=== PATIENT | female | born 1955 | race Caucasian/White ===

== ENCOUNTER 2020-03-10 13:08 | Outpatient (REF) | payer MEDICARE, SELFPAY | END 2020-03-10 13:09 | disposition home or self-care (01) | LOC: HO.BBR 13:08 | PROVIDERS: PCP Internal Medicine; Visit Provider Internal Medicine Gastroenterology | DX: E83.110 Hereditary hemochromatosis (principal) | CPT/HCPCS: 99195 ==

== ENCOUNTER → 2020-03-16 10:45 | Outpatient (BNVA) | payer MEDICARE, SELFPAY | PROVIDERS: PCP Internal Medicine; Referring Provider Internal Medicine; Visit Provider Internal Medicine Gastroenterology | DX: E83.110 Hereditary hemochromatosis (principal); R16.1 Splenomegaly, not elsewhere classified | CPT/HCPCS: 99213 ==

== ENCOUNTER → 2020-03-25 12:08 | Outpatient (BNVA) | payer MEDICARE, SELFPAY | PROVIDERS: Visit Provider Orthopaedic Surgery | DX: M75.41 Impingement syndrome of right shoulder (principal); Z87.891 Personal history of nicotine dependence; Z88.9 Allergy status to unspecified drugs, medicaments and biological substances | CPT/HCPCS: 20610; 99212; J1040 ==

== ENCOUNTER 2020-04-19 13:12 | Outpatient (REF) | payer MEDICARE, SELFPAY ==
[2020-04-19 14:27] LABS: Anion Gap 12 (12-20); Blood Urea Nitrogen 17 mg/dL (9-16); Calcium 9.4 mg/dL (8.4-10.2); Carbon Dioxide 28 mmol/L (22-29); Chloride 104 mmol/L (96-108); Estimated Glomerular Filt Rate > 60; Glucose Random 121 mg/dL (60-115); Potassium 4.8 mmol/l (3.3-5.1); Sodium 139 mmol/L (135-145)
== END 2020-04-19 13:13 | disposition home or self-care (01) ==
LOC: HO.BBR 13:12
PROVIDERS: PCP Internal Medicine; Visit Provider Internal Medicine Gastroenterology
DX: F33.9 Major depressive disorder, recurrent, unspecified (principal); M19.90 Unspecified osteoarthritis, unspecified site; Z86.79 Personal history of other diseases of the circulatory system; E83.110 Hereditary hemochromatosis
CPT/HCPCS: 80048

== ENCOUNTER 2020-05-17 13:02 | Outpatient (REF) | payer MEDICARE, SELFPAY | END 2020-05-17 13:03 | disposition home or self-care (01) | LOC: HO.BBR 13:02 | PROVIDERS: Visit Provider Internal Medicine Gastroenterology | DX: Z13.89 Encounter for screening for other disorder (principal) ==

== ENCOUNTER 2020-07-01 11:29 | Outpatient (REF) | payer MEDICARE, SELFPAY ==
[2020-07-01 13:34] LABS: MANUAL DIFF FLAG NO
[2020-07-01 13:50] LABS: Basophils Percent Auto 0.8 % (0-2); Eosinophils Absolute Auto 0.1 X10*3/uL (0.0-0.4); Eosinophils Percent Auto 2.4 % (0-4); Hematocrit 44.5 % (37-47); Hemoglobin 14.4 g/dl (12.0-16.0); Imm Gran Abs Auto 0.01 X10*3/uL (0.00-0.03); Imm Gran Pct Auto 0.3 % (0.0-0.4); Lymphocytes Absolute Auto 1.3 X10*3/uL (1.2-4.9); Lymphocytes Percent Auto 34.4 % (20-40); Mean Corpuscular HGB Conc 32.4 g/dl (31.0-35.0); Mean Corpuscular Hemoglobin 31.4 pg (27.0-33.0); Mean Corpuscular Volume 97.2 fL (80-98); Mean Platelet Volume 11.3 fL (9.4-12.3); Monocytes Absolute Auto 0.4 X10*3/uL (0.1-1.2); Monocytes Percent Auto 9.4 % (2-11); Neutrophils Percent Auto 52.7 % (45-73); Platelet Count 161 X10*3/uL (160-400); Red Blood Count 4.58 X10*6/uL (4.20-5.50); White Blood Count 3.8 X10*3/uL (4.8-10.8)
[2020-07-01 13:51] LABS: INTERNATIONAL NORM RATIO 1.1 (0.9-1.1); Prothrombin Time 13.5 SEC (10.8-13.0)
[2020-07-01 14:06] LABS: Estimated Average Glucose 114 mg/dL; Hemoglobin A1c % 5.6 %
[2020-07-01 14:25] LABS: TSH reflex Free T4 1.78 uIU/mL (0.32-4.0)
[2020-07-01 14:30] LABS: Alanine Aminotransferase 43 U/L (0-31); Albumin Level 4.5 g/dL (3.5-5.0); Alkaline Phosphatase 71 U/L (39-117); Anion Gap 16 (12-20); Aspartate Amino Transferase 54 U/L (5-31); Bilirubin Total 0.5 mg/dL (0.0-1.0); Blood Urea Nitrogen 12 mg/dL (9-16); Calcium 9.4 mg/dL (8.4-10.2); Carbon Dioxide 26 mmol/L (22-29); Chloride 105 mmol/L (96-108); Cholesterol 207 mg/dL; Estimated Glomerular Filt Rate > 60; Gamma Glutamyl Transpeptidase 217 U/L (7-33); Glucose Random 127 mg/dL (60-115); HDL Cholesterol 49 mg/dL; LDL Cholesterol Calculated 137 mg/dl; Potassium 4.6 mmol/L (3.3-5.1); Sodium 142 mmol/L (135-145); Total Protein 7.5 g/dL (6.5-8.0); Triglycerides 108 mg/dL
== END 2020-07-01 11:30 | disposition home or self-care (01) ==
LOC: HO.LAB 11:29
PROVIDERS: PCP Internal Medicine; Visit Provider Internal Medicine Gastroenterology
DX: R93.5 Abnormal findings on diagnostic imaging of other abdominal regions, including retroperitoneum (principal); E83.110 Hereditary hemochromatosis
CPT/HCPCS: 36415; 80053; 80061; 82977; 83036; 84443; 85025; 85610

== ENCOUNTER 2020-07-04 13:50 | Outpatient (REF) | payer MEDICARE, SELFPAY ==
--- NOTE | ~2020-07-04 | CT_ITS ---
EXAMINATION: CT ABDOMEN AND PELVIS WITHOUT AND WITH CONTRAST CLINICAL INFORMATION: Abdominal pain COMPARISON: Previous abdominal ultrasound most recent October 2019 TECHNIQUE: Multidetector volumetric imaging was performed of the abdomen and pelvis before and after the IV administration of 85 mL of Omnipaque 300 intravenous contrast. Sagittal and coronal reformatted images were obtained on the technologist's workstation. This CT examination was performed using dose optimization techniques as appropriate, variously including the following: *Automated exposure control *Adjustment of mA and/or kV according to patient size (this includes techniques or standardized protocols for targeted exams where dose is matched to indication/reason for exam; i.e. extremities or head) *Use of iterative reconstruction technique DLP: 1282 mGy-cm FINDINGS: LUNG BASES: There is a 2 mm right lower lobe nodule axial image 9 series 7. LIVER, GALLBLADDER, AND BILIARY TREE: The liver is enlarged, right lobe measuring 21 cm in length. The left lobe and caudate lobe appears prominent as well. The contour of the liver is slightly nodular suggestive of mild cirrhosis. No focal liver lesion is seen. The gallbladder has been removed. There is no biliary duct dilatation. PANCREAS: Unremarkable SPLEEN: Unremarkable ADRENAL GLANDS: Unremarkable KIDNEYS AND URETERS: The kidneys are normal in size, shape, and attenuation. No hydronephrosis, hydroureter, or calculi seen. No perinephric stranding. BLADDER: Not optimally distended. GASTROINTESTINAL TRACT: The small and large bowel are unremarkable. The appendix is not identified. ABDOMINAL WALL: There are umbilical and ventral hernias containing fat. LYMPH NODES: Normal VASCULAR: Unremarkable PELVIC VISCERA: The uterus appears to have been removed. No pelvic mass is seen. OSSEOUS STRUCTURES: There are degenerative changes of the spine and hip joints. CT/CT abdomen pelvis wo/w con IMPRESSION: Slightly nodular contour of the liver suggestive of mild cirrhosis. No focal liver lesion is seen. Post cholecystectomy. No biliary duct dilatation. Small umbilical and ventral hernias containing fat.
[2020-07-04] MEDS: iohexoL 350 MG/ML 100 ML INFUS..BTL 85 ML IV (14:44)
== END 2020-07-04 13:51 | disposition home or self-care (01) ==
LOC: HO.CT 13:50
PROVIDERS: PCP Internal Medicine; Visit Provider Internal Medicine Gastroenterology
DX: R93.5 Abnormal findings on diagnostic imaging of other abdominal regions, including retroperitoneum (principal); E83.110 Hereditary hemochromatosis
CPT/HCPCS: 74178; Q9967

== ENCOUNTER → 2020-07-14 15:21 | Outpatient (BNVA) | payer MEDICARE, SELFPAY | PROVIDERS: PCP Internal Medicine; Visit Provider Internal Medicine Gastroenterology | CPT/HCPCS: Q3014 ==

== ENCOUNTER 2020-07-22 12:02 | Outpatient (REF) | payer MEDICARE, SELFPAY | END 2020-07-22 12:03 | disposition home or self-care (01) | LOC: HO.BBR 12:02 | PROVIDERS: Visit Provider Internal Medicine Gastroenterology | DX: Z13.89 Encounter for screening for other disorder (principal) ==

== ENCOUNTER 2020-09-08 14:04 | Outpatient (REF) | payer MEDICARE, SELFPAY | END 2020-09-08 14:05 | disposition home or self-care (01) | LOC: HO.BBR 14:04 | PROVIDERS: Visit Provider Internal Medicine Gastroenterology | DX: Z13.89 Encounter for screening for other disorder (principal) ==

== ENCOUNTER 2020-10-13 12:58 | Outpatient (REF) | payer MEDICARE, SELFPAY | END 2020-10-13 12:59 | disposition home or self-care (01) | LOC: HO.BBR 12:58 | PROVIDERS: Visit Provider Internal Medicine Gastroenterology | DX: Z13.89 Encounter for screening for other disorder (principal) ==

== ENCOUNTER 2020-11-02 14:44 | Outpatient (REF) | payer MEDICARE, SELFPAY ==
--- NOTE | ~2020-11-02 | XR_ITS ---
EXAMINATION: XR KNEE, RIGHT CLINICAL INFORMATION: Right knee pain COMPARISON: None TECHNIQUE: Four views of the right knee. FINDINGS: There is loss of tricompartment joint space most prominent in the medial compartment. There is periapical spurring in the medial and patellar 4 compartment. There is chondrocalcinosis. There is no abnormal joint effusion. No soft tissue swelling seen. XR/XR knee RT 4V IMPRESSION: Degenerative changes of the tricompartment with chondrocalcinosis. No loose bodies or joint effusion seen.
== END 2020-11-02 14:45 | disposition home or self-care (01) ==
LOC: HO.HMGCX 14:44
PROVIDERS: PCP Internal Medicine; Visit Provider Nurse Practitioner Family
DX: M25.561 Pain in right knee (principal)
CPT/HCPCS: 73564

== ENCOUNTER → 2020-11-15 13:22 | Outpatient (BNVA) | payer MEDICARE, SELFPAY | PROVIDERS: PCP Internal Medicine; Visit Provider Orthopaedic Surgery | DX: M17.11 Unilateral primary osteoarthritis, right knee (principal) | CPT/HCPCS: 20610; 99212; J1040 ==

== ENCOUNTER 2020-11-22 14:10 | Outpatient (REF) | payer MEDICARE, SELFPAY | END 2020-11-22 14:11 | disposition home or self-care (01) | LOC: HO.BBR 14:10 | PROVIDERS: Visit Provider Internal Medicine Gastroenterology | DX: Z13.89 Encounter for screening for other disorder (principal) ==

== ENCOUNTER 2020-12-20 14:40 | Outpatient (REF) | payer MEDICARE, SELFPAY ==
[2020-12-20 16:41] LABS: MANUAL DIFF FLAG NO
[2020-12-20 16:47] LABS: Basophils Percent Auto 0.6 % (0-2); Eosinophils Absolute Auto 0.1 X10*3/uL (0.0-0.4); Eosinophils Percent Auto 1.6 % (0-4); Hematocrit 43.2 % (37-47); Hemoglobin 14.5 g/dl (12.0-16.0); Lymphocytes Absolute Auto 1.6 X10*3/uL (1.2-4.9); Mean Corpuscular HGB Conc 33.6 g/dl (31.0-35.0); Mean Corpuscular Hemoglobin 33.4 pg (27.0-33.0); Mean Corpuscular Volume 99.5 fL (80-98); Mean Platelet Volume 10.6 fL (9.4-12.3); Monocytes Absolute Auto 0.5 X10*3/uL (0.1-1.2); Monocytes Percent Auto 9.1 % (2-11); Neutrophils Absolute Auto 2.9 X10*3/uL (2.0-8.3); Neutrophils Percent Auto 56.7 % (45-73); Platelet Count 177 X10*3/uL (160-400); Red Blood Count 4.34 X10*6/uL (4.20-5.50)
[2020-12-20 17:01] LABS: Alanine Aminotransferase 40 U/L (0-31); Albumin Level 4.6 g/dL (3.5-5.0); Alkaline Phosphatase 72 U/L (39-117); Anion Gap 12 (12-20); Aspartate Amino Transferase 40 U/L (5-31); Bilirubin Direct 0.3 mg/dL (0.0-0.5); Bilirubin Total 0.6 mg/dL (0.0-1.0); Blood Urea Nitrogen 12 mg/dL (9-16); Calcium 10.1 mg/dL (8.4-10.2); Carbon Dioxide 27 mmol/L (22-29); Chloride 105 mmol/L (96-108); Estimated Glomerular Filt Rate > 60; Glucose Random 126 mg/dL (60-115); Potassium 4.4 mmol/L (3.3-5.1); Sodium 140 mmol/L (135-145); Total Protein 7.6 g/dL (6.5-8.0)
== END 2020-12-20 14:41 | disposition home or self-care (01) ==
LOC: HO.HMGCLDS 14:40
PROVIDERS: PCP Internal Medicine; Visit Provider Internal Medicine
DX: F33.9 Major depressive disorder, recurrent, unspecified (principal); I47.1 Supraventricular tachycardia; M19.90 Unspecified osteoarthritis, unspecified site; E83.110 Hereditary hemochromatosis; M17.11 Unilateral primary osteoarthritis, right knee
CPT/HCPCS: 36415; 80053; 80076; 82248; 85025

== ENCOUNTER 2020-12-28 14:00 | Outpatient (REF) | payer MEDICARE, SELFPAY | END 2020-12-28 14:01 | disposition home or self-care (01) | LOC: HO.BBR 14:00 | PROVIDERS: PCP Internal Medicine; Visit Provider Internal Medicine Gastroenterology | DX: Z13.89 Encounter for screening for other disorder (principal) ==

== ENCOUNTER → 2021-01-09 15:01 | Outpatient (BNVA) | payer MEDICARE, SELFPAY | PROVIDERS: PCP Internal Medicine; Visit Provider Nurse Practitioner | CPT/HCPCS: Q3014 ==

== ENCOUNTER 2021-02-14 14:31 | Outpatient (REF) | payer MEDICARE, SELFPAY | END 2021-02-14 14:32 | disposition home or self-care (01) | LOC: HO.BBR 14:31 | PROVIDERS: Visit Provider Internal Medicine Gastroenterology | DX: Z13.89 Encounter for screening for other disorder (principal) ==

== ENCOUNTER 2021-02-22 13:59 | Outpatient (REF) | payer MEDICARE, SELFPAY ==
--- NOTE | ~2021-02-22 | MM_ITS ---
EXAMINATION: BONE DENSITOMETRY CLINICAL INDICATION: Encounter further screening for malignant neoplasm. Screening for osteoporosis. COMPARISON: None (current study represents initial baseline exam). TECHNIQUE: Using a [employer] DXA System (software version: 13.1) manufactured by [employer], dual-energy x-ray absorptiometry was performed of the lumbar spine and left hip. The images are of good technical quality. Summary results are attached. FINDINGS: AP SPINE L1-L4: BMD 1.323 g/cm2, Z-score 1.5, T-score 1.2, normal. LEFT FEMUR, NECK: BMD 1.020 g/cm2, Z-score 0.5, T-score -0.1, normal. LEFT FEMUR, TOTAL: BMD 1.055 g/cm2, Z-score 0.7, T-score 0.4, normal. IDENTIFIED RISK FACTORS: Menopause, hysterectomy. HISTORY OF FRACTURE: None listed. MEDICATIONS: Multivitamin. MM/XR DEXA axial skeleton IMPRESSION: 1. DIAGNOSIS: Normal bone density based on the lowest T-score value of -0.1 in the femoral neck applying World Health Organization criteria. 2. 10-YEAR FRACTURE RISK PREDICTION, FRAX: Major osteoporotic fracture (clinical spine, forearm, hip or shoulder) 6.3%. Hip fracture 0.2%. 3. Treatment Recommendations: NOF guidelines recommend consideration for treatment in postmenopausal women and men age 50 and older presenting with the following: -A hip or vertebral (clinical or morphometric) fracture. -T-score less than or equal to -2.5 at the femoral neck or spine after appropriate evaluation to exclude secondary causes. -Low bone mass at the hip or spine and a 10-year fracture probability by FRAX of greater than or equal to 3% for hip fracture or greater than or equal to 20% for major osteoporotic fracture based on the [place] adapted WHO algorithm. 4. Other Recommendations: All treatment decisions require clinical judgment and consideration of individual patient factors, including patient preferences, comorbidities, previous drug use, risk factors not captured in the FRAX model (e.g. frailty, falls, vitamin D deficiency, increased bone turnover, interval significant decline in bone density) and possible under or overestimation of fracture risk by FRAX. FUTURE SCAN RECOMMENDATION: People with diagnosed cases of osteoporosis or at high risk for fracture should have regular bone mineral density tests. For patients eligible for Medicare, routine testing is allowed once every 2 years. The testing frequency can be increased to one year for patients who have rapidly progressing disease, those who are receiving or discontinuing medical therapy to restore bone mass, or have additional risk factors.
--- NOTE | ~2021-02-22 | MM_ITS ---
EXAMINATION: MM SCREENING DIGITAL BREAST TOMOSYNTHESIS, BILATERAL CLINICAL INFORMATION: Screening. Asymptomatic. The lifetime risk of breast cancer based on the Tyrer-Cuzick Model is 5%. COMPARISON: Mammography: 03/08/2017; outside mammography 03/20/2012, 02/08/2010 ([facility]) TECHNIQUE: Digital breast tomosynthesis is performed in both the craniocaudal and mediolateral oblique views along with computer-aided detection (CAD). Synthesized 2D images are generated from the tomosynthesis. FINDINGS: There are scattered areas of fibroglandular density (ACR BI-RADS breast composition Category b). There are no significant masses, abnormal calcifications, or other abnormalities. Parenchymal pattern is similar to prior studies. No developing density. No significant changes. MM/MM tomosynthesis screening BI IMPRESSION: No mammographic evidence of malignancy. ASSESSMENT: BI-RADS 1: Negative RECOMMENDATION: Routine annual mammography screening. This patient's information was entered into a reminder system with a target due date for their next mammogram.
== END 2021-02-22 14:00 | disposition home or self-care (01) ==
LOC: HO.MAMMO 13:59
PROVIDERS: Visit Provider Internal Medicine
DX: Z13.820 Encounter for screening for osteoporosis (principal); Z78.0 Asymptomatic menopausal state; Z12.31 Encounter for screening mammogram for malignant neoplasm of breast
CPT/HCPCS: 77063; 77067; 77080

== ENCOUNTER 2021-04-04 13:19 | Outpatient (REF) | payer MEDICARE, SELFPAY | END 2021-04-04 13:20 | disposition home or self-care (01) | LOC: HO.BBR 13:19 | PROVIDERS: Visit Provider Internal Medicine Gastroenterology | DX: Z13.89 Encounter for screening for other disorder (principal) ==

== ENCOUNTER 2021-05-02 14:02 | Outpatient (REF) | payer MEDICARE, SELFPAY | END 2021-05-02 14:03 | disposition home or self-care (01) | LOC: HO.BBR 14:02 | PROVIDERS: Visit Provider Internal Medicine Gastroenterology | DX: Z13.89 Encounter for screening for other disorder (principal) ==

== ENCOUNTER 2021-06-08 13:56 | Outpatient (REF) | payer MEDICARE, SELFPAY | END 2021-06-08 13:57 | disposition home or self-care (01) | LOC: HO.BBR 13:56 | PROVIDERS: Visit Provider Internal Medicine Gastroenterology | DX: Z13.89 Encounter for screening for other disorder (principal) ==

== ENCOUNTER 2021-06-15 09:12 | Outpatient (REF) | payer MEDICARE, SELFPAY | END 2021-06-15 09:13 | disposition home or self-care (01) | LOC: HO.HOSX 09:12 | PROVIDERS: Visit Provider Physician Assistant | DX: Z13.89 Encounter for screening for other disorder (principal) ==

== ENCOUNTER 2021-06-29 12:13 | Outpatient (REF) | payer MEDICARE, SELFPAY | END 2021-06-29 12:14 | disposition home or self-care (01) | LOC: HO.HOSX 12:13 | PROVIDERS: Visit Provider Orthopaedic Surgery | DX: Z13.89 Encounter for screening for other disorder (principal) ==

== ENCOUNTER 2021-07-05 10:25 | Outpatient (REF) | payer MEDICARE, SELFPAY ==
[2021-07-05 14:30] LABS: Ferritin 25 ng/mL (10-250)
[2021-07-05 14:31] LABS: Alanine Aminotransferase 30 U/L (0-31); Albumin Level 4.6 g/dL (3.5-5.0); Alkaline Phosphatase 67 U/L (39-117); Anion Gap 11 (12-20); Aspartate Amino Transferase 38 U/L (5-31); Bilirubin Total 0.8 mg/dL (0.0-1.0); Carbon Dioxide 27 mmol/L (22-29); Chloride 108 mmol/L (96-108); Estimated Glomerular Filt Rate > 60; Glucose Random 124 mg/dL (60-115); Potassium 4.4 mmol/L (3.3-5.1); Sodium 142 mmol/L (135-145); Total Protein 7.7 g/dL (6.5-8.0)
[2021-07-05 15:46] LABS: Blood Urea Nitrogen 11 mg/dL (9-16); Calcium 10.2 mg/dL (8.4-10.2)
[2021-07-07 07:06] LABS: LDL Cholesterol Direct 143 mg/dL (<100)
== END 2021-07-05 10:26 | disposition home or self-care (01) ==
LOC: HO.HMGCLDS 10:25
PROVIDERS: PCP Internal Medicine; Visit Provider Internal Medicine
DX: E83.119 Hemochromatosis, unspecified (principal); F33.9 Major depressive disorder, recurrent, unspecified; M19.90 Unspecified osteoarthritis, unspecified site; R52 Pain, unspecified; E83.110 Hereditary hemochromatosis; F41.1 Generalized anxiety disorder
CPT/HCPCS: 36415; 80053; 82728; 83721

== ENCOUNTER → 2021-07-14 14:45 | Outpatient (BNVA) | payer MEDICARE, SELFPAY | PROVIDERS: PCP Internal Medicine; Referring Provider Internal Medicine; Visit Provider Nurse Practitioner | DX: E83.10 Disorder of iron metabolism, unspecified (principal) | CPT/HCPCS: 99212 ==

== ENCOUNTER 2021-07-27 13:59 | Outpatient (REF) | payer MEDICARE, SELFPAY | END 2021-07-27 14:00 | disposition home or self-care (01) | LOC: HO.BBR 13:59 | PROVIDERS: Visit Provider Nurse Practitioner | DX: Z13.89 Encounter for screening for other disorder (principal) ==

== ENCOUNTER 2021-09-12 14:00 | Outpatient (REF) | payer MEDICARE, SELFPAY | END 2021-09-12 14:01 | disposition home or self-care (01) | LOC: HO.BBR 14:00 | PROVIDERS: Visit Provider Nurse Practitioner | DX: Z13.89 Encounter for screening for other disorder (principal) ==

== ENCOUNTER → 2021-10-06 15:04 | Outpatient (BNVA) | payer MEDICARE, SELFPAY | PROVIDERS: PCP Internal Medicine; Visit Provider Physician Assistant | DX: M17.11 Unilateral primary osteoarthritis, right knee (principal) | CPT/HCPCS: 20610; 99212; J1040 ==

== ENCOUNTER 2021-10-19 12:58 | Outpatient (REF) | payer MEDICARE, SELFPAY | END 2021-10-19 12:59 | disposition home or self-care (01) | LOC: HO.BBR 12:58 | PROVIDERS: Visit Provider Nurse Practitioner | DX: Z13.89 Encounter for screening for other disorder (principal) ==

== ENCOUNTER → 2021-10-27 12:36 | Outpatient (BNVA) | payer MEDICARE, SELFPAY | PROVIDERS: PCP Internal Medicine; Referring Provider Internal Medicine; Visit Provider Internal Medicine Gastroenterology | DX: K74.69 Other cirrhosis of liver (principal); E83.119 Hemochromatosis, unspecified | CPT/HCPCS: 99212 ==

== ENCOUNTER 2021-11-23 12:04 | Outpatient (REF) | payer MEDICARE, SELFPAY | END 2021-11-23 12:05 | disposition home or self-care (01) | LOC: HO.BBR 12:04 | PROVIDERS: Visit Provider Nurse Practitioner | DX: Z13.89 Encounter for screening for other disorder (principal) ==

== ENCOUNTER → 2022-01-24 10:31 | Outpatient (BNVA) | payer MEDICARE, SELFPAY | PROVIDERS: PCP Internal Medicine; Visit Provider Physician Assistant | DX: M17.11 Unilateral primary osteoarthritis, right knee (principal) | CPT/HCPCS: 20610; 99212; J1040 ==

== ENCOUNTER 2022-01-25 11:51 | Outpatient (REF) | payer MEDICARE, SELFPAY ==
[2022-01-25 13:58] LABS: Alanine Aminotransferase 24 U/L (0-31); Albumin Level 4.3 g/dL (3.5-5.0); Alkaline Phosphatase 59 U/L (39-117); Anion Gap 15 (12-20); Aspartate Amino Transferase 29 U/L (5-31); Bilirubin Total 0.8 mg/dL (0.0-1.0); Blood Urea Nitrogen 13 mg/dL (9-16); Calcium 9.7 mg/dL (8.4-10.2); Carbon Dioxide 26 mmol/L (22-29); Chloride 105 mmol/L (96-108); Estimated Glomerular Filt Rate > 60; Glucose Random 93 mg/dL (60-115); Potassium 4.6 mmol/L (3.3-5.1); Sodium 141 mmol/L (135-145); Total Protein 7.1 g/dL (6.5-8.0)
== END 2022-01-25 11:52 | disposition home or self-care (01) ==
LOC: HO.BBR 11:51
PROVIDERS: Internal Medicine; Visit Provider Nurse Practitioner
DX: I47.1 Supraventricular tachycardia (principal); F33.9 Major depressive disorder, recurrent, unspecified; E83.110 Hereditary hemochromatosis
CPT/HCPCS: 36415; 80053

== ENCOUNTER 2022-04-16 11:54 | Outpatient (REF) | payer MEDICARE, SELFPAY | END 2022-04-16 11:55 | disposition home or self-care (01) | LOC: HO.BBR 11:54 | PROVIDERS: Visit Provider Nurse Practitioner | DX: Z13.89 Encounter for screening for other disorder (principal) ==

== ENCOUNTER 2022-05-15 12:59 | Outpatient (REF) | payer MEDICARE, SELFPAY | END 2022-05-15 13:00 | disposition home or self-care (01) | LOC: HO.BBR 12:59 | PROVIDERS: Visit Provider Nurse Practitioner | DX: Z13.89 Encounter for screening for other disorder (principal) ==

== ENCOUNTER 2022-05-15 15:00 | Outpatient (REF) | payer MEDICARE, SELFPAY ==
--- NOTE | ~2022-05-15 | MM_ITS ---
EXAMINATION: MM SCREENING DIGITAL BREAST TOMOSYNTHESIS, BILATERAL CLINICAL INFORMATION: Screening. Asymptomatic. The lifetime risk of breast cancer based on the Tyrer-Cuzick Model is 6.6%. COMPARISON: Mammography: February 22, 2021 and studies dating back to March 20, 2012 TECHNIQUE: Digital breast tomosynthesis is performed in both the craniocaudal and mediolateral oblique views along with computer-aided detection (CAD). Synthesized 2D images are generated from the tomosynthesis. FINDINGS: There are scattered areas of fibroglandular density (ACR BI-RADS breast composition Category b). There are no significant masses, abnormal calcifications, or other abnormalities. MM/MM tomosynthesis screening BI IMPRESSION: No significant changes from prior exam. ASSESSMENT: BI-RADS 1: Negative RECOMMENDATION: Routine annual mammography screening. This patient's information was entered into a reminder system with a target due date for their next mammogram.
== END 2022-05-15 15:01 | disposition home or self-care (01) ==
LOC: HO.MAMMO 15:00
PROVIDERS: Visit Provider Internal Medicine
DX: Z12.31 Encounter for screening mammogram for malignant neoplasm of breast (principal)
CPT/HCPCS: 77063; 77067

== ENCOUNTER 2022-07-12 12:26 | Outpatient (REF) | payer MEDICARE, SELFPAY | END 2022-07-12 12:27 | disposition home or self-care (01) | LOC: HO.BBR 12:26 | PROVIDERS: PCP Internal Medicine; Visit Provider Nurse Practitioner | DX: Z13.89 Encounter for screening for other disorder (principal) ==

== ENCOUNTER 2022-08-15 07:50 | Outpatient (REF) | payer MEDICARE, SELFPAY ==
--- NOTE | ~2022-08-15 | XR_ITS ---
EXAMINATION: XR KNEE, RIGHT XR KNEE AP STANDING CLINICAL INFORMATION: Pain. COMPARISON: Prior radiographs dated 11/02/2020. TECHNIQUE: Lateral and axial views of the right knee were obtained. AP bilateral standing view of the knees was obtained. FINDINGS: There is marked asymmetric narrowing of the medial joint space compartment of the right knee. The lateral joint space compartment of the right knee is well-maintained. There is moderate narrowing of the right patellofemoral compartment, most pronounced laterally. There is tricompartment peripheral osteophyte formation. There is chondrocalcinosis. There are periarticular calcifications. A small joint effusion is seen. There is no foreign body. Prosthetic components of the left total knee arthroplasty are appropriately aligned without periprosthetic fracture or lucency. No component migration. XR/XR knee RT 2V IMPRESSION: 1. There is tricompartment osteoarthritic change of the right knee, most pronounced of the medial joint space compartment, where it is severe, and of the patellofemoral compartment, where it is moderate. 2. A small right knee joint effusion is seen. 3. There is chondrocalcinosis, which can be associated with CPPD. 4. There is an intact left knee total arthroplasty.
--- NOTE | ~2022-08-15 | XR_ITS ---
EXAMINATION: XR KNEE, RIGHT XR KNEE AP STANDING CLINICAL INFORMATION: Pain. COMPARISON: Prior radiographs dated 11/02/2020. TECHNIQUE: Lateral and axial views of the right knee were obtained. AP bilateral standing view of the knees was obtained. FINDINGS: There is marked asymmetric narrowing of the medial joint space compartment of the right knee. The lateral joint space compartment of the right knee is well-maintained. There is moderate narrowing of the right patellofemoral compartment, most pronounced laterally. There is tricompartment peripheral osteophyte formation. There is chondrocalcinosis. There are periarticular calcifications. A small joint effusion is seen. There is no foreign body. Prosthetic components of the left total knee arthroplasty are appropriately aligned without periprosthetic fracture or lucency. No component migration. XR/XR knee standing BI IMPRESSION: 1. There is tricompartment osteoarthritic change of the right knee, most pronounced of the medial joint space compartment, where it is severe, and of the patellofemoral compartment, where it is moderate. 2. A small right knee joint effusion is seen. 3. There is chondrocalcinosis, which can be associated with CPPD. 4. There is an intact left knee total arthroplasty.
== END 2022-08-15 07:51 | disposition home or self-care (01) ==
LOC: HO.HOSX 07:50
PROVIDERS: Visit Provider Physician Assistant
DX: M17.11 Unilateral primary osteoarthritis, right knee (principal); M25.562 Pain in left knee
CPT/HCPCS: 73560; 73565; 99212

== ENCOUNTER → 2022-08-30 14:13 | Outpatient (BNVA) | payer MEDICARE, SELFPAY | PROVIDERS: PCP Internal Medicine; Visit Provider Orthopaedic Surgery | DX: M17.11 Unilateral primary osteoarthritis, right knee (principal) | CPT/HCPCS: 99212 ==

== ENCOUNTER → 2022-10-18 12:53 | Outpatient (BNVA) | payer MEDICARE, SELFPAY | PROVIDERS: PCP Internal Medicine; Visit Provider Physician Assistant | DX: M17.11 Unilateral primary osteoarthritis, right knee (principal) | CPT/HCPCS: 99212 ==

== ENCOUNTER 2022-10-23 06:10 | Inpatient (IN) | payer MEDICARE, SELFPAY ==
[2022-10-01 12:34] LABS: MANUAL DIFF FLAG NO
[2022-10-01 14:11] LABS: Basophils Percent Auto 0.7 % (0-2); Eosinophils Absolute Auto 0.1 X10*3/uL (0.0-0.4); Hematocrit 44.9 % (37.0-47.0); Hemoglobin 14.9 g/dl (12.0-16.0); Imm Gran Abs Auto 0.01 X10*3/uL (0.00-0.03); Imm Gran Pct Auto 0.2 % (0.0-0.4); Lymphocytes Absolute Auto 1.4 X10*3/uL (1.2-4.9); Mean Corpuscular HGB Conc 33.2 g/dl (31.0-35.0); Mean Corpuscular Hemoglobin 33.8 pg (27.0-33.0); Mean Corpuscular Volume 101.8 fL (80.0-98.0); Monocytes Absolute Auto 0.6 X10*3/uL (0.1-1.2); Monocytes Percent Auto 12.9 % (2-11); Neutrophils Absolute Auto 2.4 x10*3/uL (2.0-8.3); Neutrophils Percent Auto 53.2 % (45-73); Platelet Count 157 X10*3/uL (160-400); Red Blood Count 4.41 X10*6/uL (4.20-5.50); Red Cell Distribution Width 13.1 % (11.0-16.0); White Blood Count 4.4 X10*3/uL (4.8-10.8)
[2022-10-01 14:44] LABS: B Type Natriuretic Peptide 33 pg/mL (<100)
[2022-10-01 15:23] LABS: Alanine Aminotransferase 45 U/L (0-31); Albumin Level 4.4 g/dL (3.5-5.0); Alkaline Phosphatase 69 U/L (39-117); Anion Gap 14 (12-20); Aspartate Amino Transferase 46 U/L (5-31); Bilirubin Total 0.7 mg/dL (0.0-1.0); Blood Urea Nitrogen 13 mg/dL (9-16); Calcium 9.7 mg/dL (8.4-10.2); Carbon Dioxide 28 mmol/L (22-29); Chloride 105 mmol/L (96-108); Estimated Glomerular Filt Rate > 60; Glucose Random 76 mg/dL (60-115); Potassium 4.7 mmol/L (3.3-5.1); Sodium 142 mmol/L (135-145); Total Protein 7.1 g/dL (6.5-8.0)
[2022-10-01 15:37] LABS: Ferritin 93 ng/mL (10-250)
[2022-10-10 12:17] VITALS: BP 123/79; PULSE 72; RESP 16; O2SAT 97; BMI 32.2
--- NOTE | 2022-10-10 12:41 | HO.ANESPROP2 ---
Documented by User: Elysia Zapata NP 10/19/22 08:47 HPI - Anesthesia Eval Consult details Narrative: 66yo F for Right Knee Replacement Total, 10/23/22 PCP cleared Therapeutic phlebotomies for hemachromatosis. Last 07/2022. s/p L TKA 2017 [facility] Active Problems Active Problems: All Active Problems (Updated 10/10/22 @ 12:13 by Teressa Medrano RN) Abnormal ultrasound of abdomen (Acute) Rotator cuff impingement syndrome of right shoulder (Acute) Otitis media (Acute) PAT (paroxysmal atrial tachycardia) (Acute) Impacted cerumen, right ear (Acute) Skin growth (Acute) Knee pain (Acute) Primary osteoarthritis of right knee (Acute) Encounter for routine gynecological examination (Acute) Breast screening (Acute) Menopause (Acute) Tubular adenoma of colon (Acute) Cirrhosis due to hemochromatosis (Acute) Anxiety, generalized (Acute) Pain management (Acute) Obesity due to excess calories (Acute) Medicare annual wellness visit, subsequent (Acute) Cellulitis of left breast (Acute) Infection of breast, left (Acute) Pre-op evaluation (Acute) Impacted cerumen, bilateral (Acute) Hx of colonoscopy (Acute 10/07/18) Abnormal abdominal ultrasound (Acute) Osteoarthritis (Acute) Depression, major, recurrent (Acute) Hemochromatosis (Acute) Past Medical History Medical History 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, major, recurrent Hemochromatosis History of PAT (paroxysmal atrial tachycardia) Osteoarthritis Family History Family History Father HTN (hypertension) Lung cancer Mother Osteoporosis Sister Hemochromatosis Paternal Grandfather Skin cancer Bone cancer Maternal Grandmother Breast cancer Other Mental health disorder Family history of problems with anesthesia: No Surgical History Surgical History History of excision of lesion (08/16/14) History of partial hysterectomy (~2009) Hx of arthroplasty (10/09/16) Hx of cholecystectomy Hx of colonoscopy (10/07/18) Hx of hemorrhoidectomy Hx of toe surgery (~1995) History of Problems with Anesthesia: No Social History Social History Household Members: None Housing: Apartment Are you a primary adult daycare coordinator to a significant other at home: No Do you presently have visiting nurse or other home services: No Alcohol intake: current Alcohol intake frequency: a few times a month Alcohol type: wine Patient Tobacco Use Status: Former Tobacco user Quit Date: age 44 Tobacco use type: Cigarette Cigarette Packs Per Day: 2 Cigarettes Per Day: 40.0 Years Smoked: 29 e-Cigarette/Vaping Use: Never Used Use of substances other than those prescribed or required for medical reasons: No Currently Displaying Signs/Symptoms of Drug Intoxication Withdrawal: No Have you been hit, kicked, punched, or otherwise hurt by someone within the past year? If so, by whom?: No Do you feel safe in your current relationship?: Yes Is there a partner from a previous relationship who is making you feel unsafe now?: No Are you made to feel afraid or neglected: No Are you DNR?: No Advance Directives: No (was -he is -sister secondary) Advance Directives Information Provided: No Advance Directives on File: No Advance Directives Date on File: 10/08/16 Do you have thoughts of harming others: None Do you have a plan to hurt others: No Plan Recently lost weight without trying: No How much weight loss: Not applicable Eating poorly because of decreased appetite: No Nutrition screen score: 0 Nutrition Risks: No Nutritional Risk Patient : No : No Poor oral hygiene: No Current occupational status: disabled Current occupation: right handed Cognitive needs: No Hearing needs: No Vision needs: Yes Narrative Narrative: No recent illness No CP/SOB within limits of pain Meds Allergies Allergy/AdvReac Type Severity Reaction Status Date / Time adhesive tape [ADHESIVE TAPE] Allergy Intermediate rednes Verified 10/10/22 12:16 from band-aids Home Medications Medication Instructions Recorded Confirmed Last Taken Type celecoxib 200 mg capsule 200 mg PO DAILY 10/10/22 10/23/22 Unknown History sertraline 100 mg tablet 150 mg PO DAILY 10/10/22 10/23/22 10/23/22 05:30 History diltiazem HCl 120 mg 120 mg PO DAILY 10/23/22 10/23/22 10/23/22 05:30 History capsule,extended release 24 hr Exam Exam Date and Time: October 10, 2022 1241 Height,Weight and Vital Signs: Height 5 ft 8 in Weight 96.162 kg Last Vital Signs Pulse 72 10/10/22 12:17 Resp 16 10/10/22 12:17 BP 123/79 10/10/22 12:17 Pulse Ox 97 10/10/22 12:17 O2 Del Method Room Air 10/10/22 12:17 Pertinent Lab Results Pertinent Lab Results: Laboratory Tests 10/01/22 10/01/22 10/01/22 12:33 12:33 12:33 WBC 4.4 L RBC 4.41 Hgb 14.9 Hct 44.9 MCV 101.8 H MCH 33.8 H MCHC 33.2 RDW 13.1 Plt Count 157 L MPV 11.0 Immature Gran % (Auto) 0.2 Neut % (Auto) 53.2 Lymph % (Auto) 31.0 Lassen % (Auto) 12.9 H Eos % (Auto) 2.0 Baso % (Auto) 0.7 Lymph # (Auto) 1.4 Lassen # (Auto) 0.6 Eos # (Auto) 0.1 Baso # (Auto) 0.0 Abs Immat Gran (auto) 0.01 Absolute Neuts (auto) 2.4 Absolute Nucleated RBC 0.000 Nucleated RBC % (auto) 0.0 Sodium 142 Potassium 4.7 Chloride 105 Carbon Dioxide 28 Anion Gap 14 BUN 13 Creatinine 0.72 Estim Creat Clear Calc TNP Estimated GFR > 60 Random Glucose 76 Calcium 9.7 Ferritin 93 Total Bilirubin 0.7 AST 46 H ALT 45 H Alkaline Phosphatase 69 B-Natriuretic Peptide 33 Total Protein 7.1 Albumin 4.4 Narrative Narrative: EKG 09/2022 NSR @ 63 Airway Mallampati Class: II TM Dist: >3cm Loose/Missing/Broken Teeth: Yes (Top left molar missing) Heart: RRR Lungs: CTAB Assessment and Plan Assessment Anesthesia Assessment: Anesthesia Plan Discussed and PAT Visit Final Anesthetic Review Family History of Problems with Anesthesia: No History of Problems with Anesthesia: No Documented by User: Jake Pedraza MD 10/23/22 18:09 [facility] Past Medical History Medical History 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, major, recurrent Hemochromatosis History of PAT (paroxysmal atrial tachycardia) Osteoarthritis Family History Family History Father HTN (hypertension) Lung cancer Mother Osteoporosis Sister Hemochromatosis Paternal Grandfather Skin cancer Bone cancer Maternal Grandmother Breast cancer Other Mental health disorder Surgical History Surgical History History of excision of lesion (08/16/14) History of partial hysterectomy (~2009) Hx of arthroplasty (10/09/16) Hx of cholecystectomy Hx of colonoscopy (10/07/18) Hx of hemorrhoidectomy Hx of toe surgery (~1995) Social History Social History Household Members: None Housing: Apartment Are you a primary adult daycare coordinator to a significant other at home: No Do you presently have visiting nurse or other home services: No Alcohol intake: current Alcohol intake frequency: a few times a month Alcohol type: wine Patient Tobacco Use Status: Former Tobacco user Quit Date: age 44 Tobacco use type: Cigarette Cigarette Packs Per Day: 2 Cigarettes Per Day: 40.0 Years Smoked: 29 e-Cigarette/Vaping Use: Never Used Use of substances other than those prescribed or required for medical reasons: No Currently Displaying Signs/Symptoms of Drug Intoxication Withdrawal: No Have you been hit, kicked, punched, or otherwise hurt by someone within the past year? If so, by whom?: No Do you feel safe in your current relationship?: Yes Is there a partner from a previous relationship who is making you feel unsafe now?: No Are you made to feel afraid or neglected: No Are you DNR?: No Advance Directives: No (was -he is -sister secondary) Advance Directives Information Provided: No Advance Directives on File: No Advance Directives Date on File: 10/08/16 Do you have thoughts of harming others: None Do you have a plan to hurt others: No Plan Recently lost weight without trying: No How much weight loss: Not applicable Eating poorly because of decreased appetite: No Nutrition screen score: 0 Nutrition Risks: No Nutritional Risk Patient : No : No Poor oral hygiene: No Current occupational status: disabled Current occupation: right handed Cognitive needs: No Hearing needs: No Vision needs: Yes Meds Allergies Allergy/AdvReac Type Severity Reaction Status Date / Time adhesive tape [ADHESIVE TAPE] Allergy Intermediate rednes Verified 10/10/22 12:16 from band-aids Home Medications Medication Instructions Recorded Confirmed Last Taken Type celecoxib 200 mg capsule 200 mg PO DAILY 10/10/22 10/23/22 Unknown History sertraline 100 mg tablet 150 mg PO DAILY 10/10/22 10/23/22 10/23/22 05:30 History diltiazem HCl 120 mg 120 mg PO DAILY 10/23/22 10/23/22 10/23/22 05:30 History capsule,extended release 24 hr Exam Airway Neck ROM: Full Loose/Missing/Broken Teeth: Yes (Top left molar missing, chipped upper left ) Assessment and Plan Assessment Anesthesia Assessment: Chart Reviewed Final Anesthetic Review NPO: Yes Final Preanesthetic Review: Meds/Allgs Chart Reviewed, Consent Obtained/Reviewed and Anes Risks/Benef Reviewed Patient Risk: Intermediate Procedure Risk: Intermediate Anesthetic Plan Anesthetic Plan: Spinal and Agree w/ Assess. and Plan Disposition: Standard PACU and Inp. Admit - Standard Bed
[2022-10-10 15:17] LABS: MRSA Nasal PCR NEGATIVE (Negative); SA Nasal PCR NEGATIVE (Negative)
[2022-10-23] VITALS (14 sets, daily range): BP systolic 117–137; BP diastolic 63–85; PULSE 62–90; RESP 15–20; TEMP 35.7–36.9; O2SAT 96–100; BMI 36.0
--- NOTE | ~2022-10-23 | XR_ITS ---
EXAMINATION: XR KNEE, RIGHT CLINICAL INFORMATION: Right TKA COMPARISON: None available. TECHNIQUE: Four views of the right knee. FINDINGS: There is a total right knee prosthesis with immediate postoperative changes of surgical jayna along the anterior knee. There is gas in fluid within the anterior joint space. The prosthetic components are in satisfactory alignment. XR/XR knee RT 2V IMPRESSION: Total right knee prosthesis with immediate postoperative changes noted. The prosthetic components are in satisfactory alignment.
[2022-10-23 06:48] LABS: Hematocrit 43.9 % (37.0-47.0); Hemoglobin 15.1 g/dl (12.0-16.0)
--- NOTE | 2022-10-23 06:57 | PHA.MEDREC ---
Pharmacy Consult ? Medication Reconciliation Pharmacy has reviewed the medication reconciliation completed by nursing.
[2022-10-23] MEDS: Lactated Ringers 1,000 ML 100 ML IVCONT ×2 (07:03→12:29)
--- NOTE | 2022-10-23 07:37 | MHC.SHP ---
Pre-Procedural Eval Section A Date of Service: 10/23/22 The patient is an INPATIENT: No Changes since office visit: No Cold of Flu in the past 2 weeks, No New Medical Problems, No Changes in Medication and No Patient answered all questions The History & Physical has been completed within 30 days and I have reviewed it.: Yes Section B Chief Complaint: RT TKA Allergies: Allergies Allergy/AdvReac Type Severity Reaction Status Date / Time adhesive tape [ADHESIVE TAPE] Allergy Jacki bledsoe Verified 10/10/22 12:16 from band-aids Plan I have reviewed the history and physical and performed a pertinent physical examination on my patient. No changes have occurred unless specified. Time Spent With Patient Time: Total time managing care of this patient today ____ minutes.
--- NOTE | 2022-10-23 09:43 | P.BOP_ITS ---
Brief Operative Note Date of Service: 10/23/22 Pre-op diagnosis: Right knee OA Post-op diagnosis: same Procedure: Right TKA Surgeon: Cosmo Degroot MD Anesthesia: GETA Was an Robotic Machine Operator used for this Procedure?: No Robotic Machine Operator: Mahsa Jasmine Estimated blood loss (mL): 150 IV fluids (mL): 1,000 Pathology: other Condition: stable Disposition: PACU
--- NOTE | 2022-10-23 10:04 | W.PM.OPN ---
Operative Note Operative Note Date of Service: 10/23/22 Narrative: Date of Service: 10/23/22 Pre-op diagnosis: Right knee OA Post-op diagnosis: same Procedure: Right TKA Surgeon: Cosmo Degroot MD Anesthesia: GETA Was an Pharmacy Sales Representative used for this Procedure?: No Pharmacy Sales Representative: Mahsa Jasmine Estimated blood loss (mL): 150 IV fluids (mL): 1,000 Pathology: other Condition: stable Disposition: PACU Procedure in detail: The patient was brought to the operating room and prepped and draped in standard sterile fashion. A time-out was called to identify proper site proper procedure proper surgeon and IV antibiotics were administered. 1 g of IV tranexamic acid was administered. I began by making a midline incision to the retinaculum and performed a medial parapatellar arthrotomy. The patella was translated laterally and the knee was flexed up . I performed a small medial peel and resected the infrapatellar fat pad. There was complete eburnation of the medial tibial plateau. [place]'s line was then used to drill my intramedullary femoral guide and my distal femur cut of 10 mm was made in 5 degrees of valgus while protecting the soft tissues. I then measured a # 4 femur and placed my cutting guide and made my anterior posterior and chamfer cuts in 3deg or ER while protecting the soft tissues at all times. Once I was satisfied with my cuts I turned my attention to the tibia. I removed the meniscus medially and laterally and , using an external cutting guide, in line with the tibial crest and the third ray, I made my distal tibial cut in 3 deg slope of while protecting the PCL the posterior soft tissues at all times. An extension block was used to confirm appropriate amount of bony resection. I then sized a #4 tibia and once I was satisfied that there was complete tibial coverage I placed my trial and with the trial femur in place took the knee through range of motion. I was satisfied with the extension and flexion as well as the stability and balance at 0, 30 and 90 degrees. I then turned my attention to the patella where I removed 1 cm from the undersurface of the patella and then trialed a 29a patellar button. Again the knee was taken through range of motion I was satisfied with the tracking. I then returned to the femur and drilled my femoral lug holes and prepared the tibia. A femoral bone plug was placed and the knee was irrigated copiously. I then press fit the patella, tibia and femur in standard fashion. I trialed different inserts until I selected a #10 insert. The final insert was placed and a 3 minutes iodine soak with local TXA was performed. A Werewolf cautery wand was used to maintain hemostasis over the capsule and meniscal beds, the gutters and pericapsular soft tissues. The knee was then closed with a running Quill suture, a 3 0 Vicryl and jayna on the skin. Patient was then placed in sterile dressing and brought to recovery room in stable condition there were no known complications.
--- NOTE | 2022-10-23 10:33 | PHA.MEDREC ---
Pharmacy Consult ? Medication Reconciliation Pharmacy has completed the medication reconciliation. Pharmacy has reviewed med rec done by nursing.
--- NOTE | 2022-10-23 11:56 | P.CONHOSP_ITS ---
History of Present Illness Data of Consult Service Date: 10/23/22 Primary Care Provider: Kathleen Ray MD HPI 67-year-old woman admitted by Orthopedic surgery with history paroxysmal atrial tachycardia, depression admitted with right knee osteoarthritis. She is status post right total knee arthroplasty. Surgery was unremarkable. Patient has very minimal pain at this time. She has been able to eat and drink without nausea or vomiting. Her vital signs are stable. No acute medical complaints at this time. 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, major, recurrent Hemochromatosis History of PAT (paroxysmal atrial tachycardia) Osteoarthritis Family History Father HTN (hypertension) Lung cancer Mother Osteoporosis Sister Hemochromatosis Paternal Grandfather Skin cancer Bone cancer Maternal Grandmother Breast cancer Other Mental health disorder Surgical History History of excision of lesion (08/16/14) History of partial hysterectomy (~2009) Hx of arthroplasty (10/09/16) Hx of cholecystectomy Hx of colonoscopy (10/07/18) Hx of hemorrhoidectomy Hx of toe surgery (~1995) Social History Household Members: None Housing: Apartment Are you a primary pediatric critical care nurse to a significant other at home: No Do you presently have visiting nurse or other home services: No Alcohol intake: current Alcohol intake frequency: a few times a month Alcohol type: wine Patient Tobacco Use Status: Former Tobacco user Quit Date: age 44 Tobacco use type: Cigarette Cigarette Packs Per Day: 2 Cigarettes Per Day: 40.0 Years Smoked: 29 e-Cigarette/Vaping Use: Never Used Use of substances other than those prescribed or required for medical reasons: No Have you been hit, kicked, punched, or otherwise hurt by someone within the past year? If so, by whom?: No Do you feel safe in your current relationship?: Yes Is there a partner from a previous relationship who is making you feel unsafe now?: No Are you made to feel afraid or neglected: No Are you DNR?: No Advance Directives: No (was -he is -sister secondary) Advance Directives Information Provided: No Advance Directives on File: No Advance Directives Date on File: 10/08/16 Do you have thoughts of harming others: None Do you have a plan to hurt others: No Plan Recently lost weight without trying: No How much weight loss: Not applicable Eating poorly because of decreased appetite: No Nutrition screen score: 0 Nutrition Risks: No Nutritional Risk Patient : No : No Poor oral hygiene: No Current occupational status: disabled Current occupation: right handed Cognitive needs: No Hearing needs: No Vision needs: Yes Meds Allergies Allergy/AdvReac Type Severity Reaction Status Date / Time adhesive tape [ADHESIVE TAPE] Allergy Intermediate rednes Verified 10/10/22 12:16 from band-aids Active Medications: Current Medications Acetaminophen (Acetaminophen 325 Mg Tablet) 650 mg PO Q6H PRN PRN Reason: Pain, Mild (Pain Scale 1-3) Celecoxib (Celecoxib 200 Mg Capsule) 200 mg PO BID EVELIO Diltiazem HCl (Diltiazem Hcl Cd 120 Mg Cap.Er.Deg) 120 mg PO DAILY EVELIO; Protocol Docusate Sodium (Docusate Sodium 100 Mg Capsule) 100 mg PO BID EVELIO Gabapentin (Gabapentin 300 Mg Capsule) 300 mg PO BEDTIME EVELIO Hydromorphone HCl (Hydromorphone Hcl 0.5 Mg/0.5 Ml Syringe) 0.25 mg IVPUSH Q4H PRN; Protocol PRN Reason: Pain, Severe (Pain Scale 7-10) Lactated Ringer's (Lr) 1,000 mls @ 100 mls/hr IVCONT .Q10H EVELIO Stop: 10/24/22 10:00 Cefazolin Sodium/Dextrose (Ancef) 2 gm in 50 mls @ 100 mls/hr IV POSTOP ONE Stop: 10/23/22 14:29 Ondansetron HCl (Ondansetron Hcl 4 Mg/2 Ml Vial) 4 mg IVPUSH Q8H PRN PRN Reason: Nausea and Vomiting Oxycodone HCl (Oxycodone Hcl Immed Release 5 Mg Tablet) 5 mg PO Q4H PRN PRN Reason: Pain, Moderate(Pain Scale 4-6) Oxycodone HCl (Oxycodone Hcl Er 10 Mg Tab.Er.12h) 10 mg PO BID EVELIO Sertraline HCl (Sertraline Hcl 50 Mg Tablet) 150 mg PO DAILY [facility] Sodium Chloride (0.9 % Sodium Chloride Flush 3 Ml Syringe) 3 ml IVFLUSH QSHIFT [facility] Home Medications Medication Instructions Recorded Confirmed Last Taken Type celecoxib 200 mg capsule 200 mg PO DAILY 10/10/22 10/23/22 Unknown History sertraline 100 mg tablet 150 mg PO DAILY 10/10/22 10/23/22 10/23/22 05:30 History diltiazem HCl 120 mg 120 mg PO DAILY 10/23/22 10/23/22 10/23/22 05:30 History capsule,extended release 24 hr Physical Exam Vital Signs and Narrative: Vital Signs: Last Vital Signs Temp 98.3 F 10/23/22 11:47 Pulse 81 10/23/22 11:47 Resp 16 10/23/22 11:47 BP 137/76 10/23/22 11:47 Pulse Ox 98 10/23/22 11:47 O2 Del Method Room Air 10/23/22 11:47 BMI result Body Mass Index 32.2 Appearing in no acute distress head is normocephalic atraumatic eyes pupils are PERRLA sclera is anicteric mouth throat mucous membranes are intact and moist neck is supple no lymphadenopathy, no JVD noted lung sounds are clear to auscultation heart regular rate rhythm, clear S1, S2 positive bowel sounds, abdomen is soft, nontender neuro patient is alert x3, no focal deficits Results Labs 10/23/22 06:42 10/01/22 12:33 Assessment and Plan (1) Rotator cuff impingement syndrome of right shoulder: Status: Acute Plan 67 year old women s/p right TKA Right TKA management as per surgical team pain management Hx of paroxysmal atach continue diltiazem Mental health continue home medications DVT prophylax with SCD boots Consult complete, will sign off Time Spent With Patient Time: Total time managing care of this patient today ____ minutes.
[2022-10-23] MEDS: dilTIAZem HCL CD 120 MG CAP.ER.DEG PO (12:29)
[2022-10-23] MEDS: Sertraline HCL 50 MG TABLET 150 MG PO (12:29)
[2022-10-23] MEDS: Acetaminophen 325 MG TABLET 650 MG PO (12:37)
[2022-10-23] MEDS: oxyCODONE HCl Immed Release 5 MG TABLET PO ×2 (12:38→16:28)
[2022-10-23] MEDS: ceFAZolin Sodium/Dextrose,Iso 2 GM/50 ML PIGGYBACK IV (13:36)
[2022-10-23] MEDS: HYDROmorphone HCl 0.5 MG/0.5 ML SYRINGE 0.25 MG IVPUSH ×3 (13:45→22:30)
[2022-10-23] MEDS: oxyCODONE HCl Immed Release 5 MG TABLET 10 MG PO (19:40)
[2022-10-23] MEDS: Acetaminophen 1,000 MG/100 ML PIGGYBACK 400 MG IV (19:42)
[2022-10-23] MEDS: Celecoxib 200 MG CAPSULE PO (20:31)
[2022-10-23] MEDS: oxyCODONE HCl ER 10 MG TAB.ER.12H PO (20:32)
[2022-10-23] MEDS: Gabapentin 300 MG CAPSULE PO (20:32)
[2022-10-23] MEDS: Docusate Sodium 100 MG CAPSULE PO (20:32)
[2022-10-24] VITALS (7 sets, daily range): BP systolic 116–133; BP diastolic 59–76; PULSE 68–83; RESP 16–18; TEMP 36.1–36.6; O2SAT 93–95
[2022-10-24] MEDS: Lactated Ringers 1,000 ML 100 ML IVCONT ×2 (00:16→07:44)
[2022-10-24] MEDS: Acetaminophen 1,000 MG/100 ML PIGGYBACK 400 MG IV ×3 (01:00→15:54)
[2022-10-24] MEDS: oxyCODONE HCl Immed Release 5 MG TABLET 10 MG PO (03:42)
[2022-10-24 05:59] LABS: MANUAL DIFF FLAG NO
[2022-10-24 06:12] LABS: Basophils Percent Auto 0.3 % (0-2); Eosinophils Percent Auto 0.6 % (0-4); Hematocrit 32.7 % (37.0-47.0); Imm Gran Abs Auto 0.03 X10*3/uL (0.00-0.03); Imm Gran Pct Auto 0.4 % (0.0-0.4); Lymphocytes Absolute Auto 0.8 X10*3/uL (1.2-4.9); Lymphocytes Percent Auto 12.3 % (20-40); Mean Corpuscular HGB Conc 33.6 g/dl (31.0-35.0); Mean Corpuscular Volume 100.9 fL (80.0-98.0); Mean Platelet Volume 10.9 fL (9.4-12.3); Monocytes Absolute Auto 0.7 X10*3/uL (0.1-1.2); Neutrophils Absolute Auto 5.1 x10*3/uL (2.0-8.3); Neutrophils Percent Auto 76.4 % (45-73); Platelet Count 109 X10*3/uL (160-400); Red Blood Count 3.24 X10*6/uL (4.20-5.50); Red Cell Distribution Width 12.8 % (11.0-16.0); White Blood Count 6.7 X10*3/uL (4.8-10.8)
[2022-10-24 06:35] LABS: Anion Gap 10 (12-20); Blood Urea Nitrogen 8 mg/dL (9-16); Calcium 8.6 mg/dL (8.4-10.2); Carbon Dioxide 27 mmol/L (22-29); Chloride 103 mmol/L (96-108); Creatinine Clr Calc Pharmacy 114.2; Estimated Glomerular Filt Rate > 60; Glucose Fasting 135 mg/dL (60-99); Potassium 3.9 mmol/L (3.3-5.1); Sodium 136 mmol/L (135-145)
--- NOTE | 2022-10-24 07:45 | P.PNOP_ITS ---
Subjective Subjective Date of Service: 10/24/22 Interval history: POD s/p RT TKA no overnight events ambulating with PT pain is better controlled with med adjustments denies sob, cp, palpitations Physical Exam Vital Signs: Vital Signs: Last Vital Signs Temp 97.6 F 10/24/22 07:44 Pulse 81 10/24/22 07:44 Resp 18 10/24/22 07:44 BP 133/66 10/24/22 07:44 Pulse Ox 94 10/24/22 07:44 O2 Del Method Room Air 10/24/22 07:44 BMI result Body Mass Index 36.0 Const: General: cooperative, healthy appearing and no acute distress Resp: Effort & Inspection: normal respiratory effort and able to speak in complete sentences Cardio: Rate: regular rate Peripheral pulses: Peripheral pulses 2+ throughout GI: Palpation (GI): Soft to palpation Skin: General skin exam: no rashes or lesions noted Extrem: Other: bandage clean dry and intact. Anastasia intact. No erythema or joint effusion. Calf supple nontender. Neurovascularly intact. Procedures Date of Service Date of Service: 10/24/22 Progress Note: A&P Assessment and plan (1) Status post total right knee replacement: Status: Acute Plan * Continue pain mgmnt * Begin Aspirin for dvt ppx * begin PT for RT TKA * Dispo planning-Pending PT eval, pain mgmnt Time Spent With Patient Time: Total time managing care of this patient today ____ minutes. Quality Stroke Does the patient have a stroke diagnosis?: No VTE Prior VTE?: No VTE Risk Level:: Surgical - very high VTE Device Contraindication: N/A - Device Ordered VTE Drug Contraindication: N/A - Med Ordered
[2022-10-24] MEDS: dilTIAZem HCL CD 120 MG CAP.ER.DEG PO (08:36)
[2022-10-24] MEDS: oxyCODONE HCl ER 10 MG TAB.ER.12H PO ×2 (08:36→20:36)
[2022-10-24] MEDS: Celecoxib 200 MG CAPSULE PO ×2 (08:37→20:35)
[2022-10-24] MEDS: Aspirin 325 MG TABLET PO ×2 (08:37→20:35)
[2022-10-24] MEDS: Docusate Sodium 100 MG CAPSULE PO ×2 (08:37→20:35)
[2022-10-24] MEDS: Sertraline HCL 50 MG TABLET 150 MG PO (08:37)
[2022-10-24] MEDS: HYDROmorphone HCl 0.5 MG/0.5 ML SYRINGE 0.25 MG IVPUSH ×2 (15:55→22:56)
[2022-10-24] MEDS: 0.9 % Sodium Chloride Flush 3 ML SYRINGE IVFLUSH (19:32)
[2022-10-24] MEDS: Gabapentin 300 MG CAPSULE PO (20:35)
[2022-10-25 03:41] VITALS: BP 145/66; PULSE 83; RESP 17; TEMP 36.5
--- NOTE | 2022-10-25 05:56 | P.DS_ITS ---
DS: Providers Provider Date of Service: 10/25/22 Date of admission: 10/23/22 06:10 Primary care physician: Kathleen Ray MD Consults: 10/23/22 11:43 Consult to Hospitalist Routine Comment: Consulting Provider: Hospitalist Reason For Exam: medical management DS: Diagnosis Discharge Diagnosis (1) Status post total right knee replacement: Status: Acute DS: Summary Hospital Course Hospital Course: The patient underwent a successful Right total knee arthroplasty on 10/23/22, was transferred to PACU and then to the floor to recover. During their stay, their vitals were stable, afebrile at 98.7 . Labs were unremarkable, H/H 12.0/35.2 . POD 1 he was started on Aspirin 325mg tabs po bid for DVT ppx, they also received Physical Therapy services twice a day. Physical therapy should include gait training, ROM to tolerance and quad strength. She is WBAT. Prior to discharge, her dressing was changed, incision clean dry and intact, new Aquacel dressing applied. The Aquacel dressing should remain intact and dry at all times. Any concerns with the dressing, please contact orthopedic office. No showering. The plan is to be discharged home with VNA Time Spent with Patient Time attestation: Total time managing care of this patient today ____ minutes. Discharge coordination time: Less than 30 minutes Quality: Safe Use of Opioids Does Pt have an Active Cancer Diagnosis on the Problem List?: No Quality: Stroke Does the patient have a stroke diagnosis?: No Physical Exam Vital Signs: Vital Signs: Last Vital Signs Temp 97.7 F 10/25/22 03:41 Pulse 83 10/25/22 03:41 Resp 17 10/25/22 03:41 BP 145/66 H 10/25/22 03:41 Pulse Ox 95 10/24/22 19:46 O2 Del Method Room Air 10/25/22 03:41 BMI result Body Mass Index 36.0 Const: General: cooperative, healthy appearing and no acute distress Resp: Effort & Inspection: normal respiratory effort and able to speak in complete sentences Cardio: Rate: regular rate Peripheral pulses: Peripheral pulses 2+ throughout GI: Palpation (GI): Soft to palpation Skin: General skin exam: no rashes or lesions noted Extrem: Other: Incision clean dry and intact. [place] intact. No erythema or joint effusion. Calf supple nontender. Neurovascularly intact. DS: Data Data Completed and Pending Pending studies at discharge: Pending at discharge 10/23/22 09:27 Surgical [PTH] Routine Labs on day of discharge: Laboratory Results - last 24 hr 10/24/22 10/24/22 05:31 05:31 WBC 6.7 RBC 3.24 L D Hgb 11.0 L D Hct 32.7 L D MCV 100.9 H MCH 34.0 H MCHC 33.6 RDW 12.8 Plt Count 109 L D MPV 10.9 Immature Gran % (Auto) 0.4 Neut % (Auto) 76.4 H Lymph % (Auto) 12.3 L [place]ney % (Auto) 10.0 Eos % (Auto) 0.6 Baso % (Auto) 0.3 Lymph # (Auto) 0.8 L [place] # (Auto) 0.7 Eos # (Auto) 0.0 Baso # (Auto) 0.0 Abs Immat Gran (auto) 0.03 Absolute Neuts (auto) 5.1 Absolute Nucleated RBC 0.000 Nucleated RBC % (auto) 0.0 Sodium 136 Potassium 3.9 Chloride 103 Carbon Dioxide 27 Anion Gap 10 L BUN 8 L Creatinine 0.63 Estim Creat Clear Calc 114.2 Estimated GFR > 60 Fasting Glucose 135 H Calcium 8.6 D Discharge Plan Discharge Anticipated Discharge Date/Time: 10/25/22 08:56 Patient Disposition: Home Health Service Discharge Diagnosis: RT TKA Referrals: Mahsa Jasmine PA-C [Physician Professor Of Religion] - 2 Weeks (11/08/22 1:00 [facility] Mahsa Jasmine PA-C) Discharge Medications: New docusate sodium 100 mg Capsule 100 mg PO BID 14 Days Qty: 28 0RF oxycodone 10 mg tablet 10 mg PO Q6H PRN (Reason: Pain, Moderate(Pain Scale 4-6)) 7 Days Qty: 28 0RF Rx Instructions: Partial Fill upon patient request. celecoxib 200 mg Capsule 200 mg PO BID 30 Days Qty: 60 0RF aspirin 325 mg Tablet 325 mg PO BID 42 Days Qty: 84 0RF acetaminophen 325 mg Tablet 650 mg PO Q6H PRN (Reason: Pain, Mild (Pain Scale 1-3)) 30 Days Qty: 240 0RF Continued gabapentin 300 mg capsule 300 mg PO BEDTIME Qty: 90 0RF sertraline 100 mg tablet 150 mg PO DAILY diltiazem HCl 120 mg capsule,extended release 24hr 120 mg PO DAILY Discontinued celecoxib 200 mg capsule 200 mg PO DAILY Discharge Orders: Discharge Order (Routine); Ordered 10/25/22 Ordered By: Mahsa Jasmine Diet: Regular diet Activity on Discharge: Use cane or walker Stand Alone Forms: Patient Portal Discharge page Activity Restrictions/Additional Instructions: Physical Therapy for Total knee arthroplasty: WBAT, gait training, ROM 0-12, quad strength * Limit stair climbing * No showering, no tub bath-keep dressing clean, dry and intact * No driving x6 weeks * Continue Aspirin twice a day x 6 weeks * Follow up with [facility] in 2 weeks: * 11/08/22 1:00 [facility] [place] [facility] Jasmine PA-C * --you will also have your first out patient PT eval on the day of your post op appt-so please plan on being in the office that day for an extended period of time. Care Plan Goals: Restore function of joint Health Concerns: none Plan of Treatment: Physical Therapy Pain management DVT prophylaxis Assessment: as above
[2022-10-25 05:58] LABS: MANUAL DIFF FLAG NO
[2022-10-25 06:02] LABS: Basophils Absolute Auto 0.1 X10*3/uL (0.0-0.2); Basophils Percent Auto 0.5 % (0-2); Eosinophils Absolute Auto 0.3 X10*3/uL (0.0-0.4); Eosinophils Percent Auto 3.3 % (0-4); Hematocrit 35.2 % (37.0-47.0); Imm Gran Abs Auto 0.06 X10*3/uL (0.00-0.03); Imm Gran Pct Auto 0.7 % (0.0-0.4); Lymphocytes Absolute Auto 1.2 X10*3/uL (1.2-4.9); Lymphocytes Percent Auto 13.6 % (20-40); Mean Corpuscular HGB Conc 34.1 g/dl (31.0-35.0); Mean Corpuscular Hemoglobin 34.9 pg (27.0-33.0); Mean Corpuscular Volume 102.3 fL (80.0-98.0); Mean Platelet Volume 11.5 fL (9.4-12.3); Monocytes Absolute Auto 0.8 X10*3/uL (0.1-1.2); Monocytes Percent Auto 8.3 % (2-11); Neutrophils Absolute Auto 6.7 x10*3/uL (2.0-8.3); Neutrophils Percent Auto 73.6 % (45-73); Platelet Count 145 X10*3/uL (160-400); Red Blood Count 3.44 X10*6/uL (4.20-5.50); Red Cell Distribution Width 12.8 % (11.0-16.0); White Blood Count 9.2 X10*3/uL (4.8-10.8)
[2022-10-25 06:52] LABS: Anion Gap 12 (12-20); Blood Urea Nitrogen 8 mg/dL (9-16); Calcium 9.4 mg/dL (8.4-10.2); Carbon Dioxide 28 mmol/L (22-29); Chloride 104 mmol/L (96-108); Creatinine Clr Calc Pharmacy 114.2; Estimated Glomerular Filt Rate > 60; Glucose Fasting 134 mg/dL (60-99); Potassium 4.1 mmol/L (3.3-5.1); Sodium 140 mmol/L (135-145)
[2022-10-25 08:10] VITALS: BP 138/70; PULSE 83; RESP 18; TEMP 37.1; O2SAT 96
[2022-10-25] MEDS: Celecoxib 200 MG CAPSULE PO (08:12)
[2022-10-25] MEDS: oxyCODONE HCl ER 10 MG TAB.ER.12H PO (08:12)
[2022-10-25] MEDS: Docusate Sodium 100 MG CAPSULE PO (08:12)
[2022-10-25] MEDS: Sertraline HCL 50 MG TABLET 150 MG PO (08:12)
[2022-10-25] MEDS: Aspirin 325 MG TABLET PO (08:12)
[2022-10-25] MEDS: 0.9 % Sodium Chloride Flush 3 ML SYRINGE IVFLUSH (08:12)
[2022-10-25] MEDS: dilTIAZem HCL CD 120 MG CAP.ER.DEG PO (08:12)
[2022-10-25 08:59] VITALS: BP 138/70; PULSE 83; O2SAT 96
--- NOTE | 2022-10-25 10:28 | MHC.CM.PN ---
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
--- NOTE | 2022-10-25 11:00 | HO.POSTANES ---
Post Anesthesia Evaluation Post Anesthesia Evaluation Date of Service: 10/25/22 Vital Signs: Vital Signs Temp Pulse Resp BP Pulse Ox O2 Del Method 10/25/22 08:59 83 138/70 96 10/25/22 08:10 98.7 F 83 18 138/70 96 Room Air 10/25/22 03:41 97.7 F 83 17 145/66 H Room Air Anesthesia: Spinal and Nerve Block Mental Status: Awake Pain Control: Satisfactory Nausea/Vomiting: None Hydration: Adequate Anesthesia-Related Issues: No Anes. Related Issues
== END 2022-10-25 10:30 | disposition home health service (06) | DRG 470 ==
LOC: HO.SSSA 06:14 → HO.S3 10:08
PROVIDERS: Nurse Practitioner; Physician Assistant; Admitting Provider Orthopaedic Surgery; PCP Internal Medicine; Visit Provider Orthopaedic Surgery
PROC: 0SRC0JA Replacement of Right Knee Joint with Synthetic Substitute, Uncemented, Open Approach (ICD-10-PCS; CPT 27447; principal; 2022-10-23 07:30)
DX: M17.11 Unilateral primary osteoarthritis, right knee (principal); I47.1 Supraventricular tachycardia; F32.9 Major depressive disorder, single episode, unspecified; G89.18 Other acute postprocedural pain; Z87.891 Personal history of nicotine dependence; Z79.82 Long term (current) use of aspirin; Z79.899 Other long term (current) drug therapy
CPT/HCPCS: 36415; 73560; 80048; 80053; 82728; 83880; 85014; 85018; 85025; 86850; 86900; 86901; 87640; 87641; 88305; 88311; 97110; 97116; 97162; C1776; J0131; J0690; J1170; J2250

== ENCOUNTER 2022-11-08 09:59 | Outpatient (RCR) | payer MEDICARE, SELFPAY | END 2023-01-17 08:13 | disposition home or self-care (01) | LOC: HO.PT 09:59 | PROVIDERS: PCP Internal Medicine; Visit Provider Physician Assistant | DX: Z96.651 Presence of right artificial knee joint (principal) ==

== ENCOUNTER → 2022-11-08 12:46 | Outpatient (BNVA) | payer MEDICARE, SELFPAY | PROVIDERS: PCP Internal Medicine; Visit Provider Physician Assistant | DX: Z47.1 Aftercare following joint replacement surgery (principal); Z96.651 Presence of right artificial knee joint | CPT/HCPCS: 99212 ==

== ENCOUNTER 2022-11-29 12:59 | Outpatient (RCR) | payer MEDICARE, SELFPAY ==
--- NOTE | 2022-11-29 13:50 | MHC.PT.EP ---
[facility] [place] Office [place] [facility] [place] [facility] [address] Olivia Conti [address] [phone] F: [phone] F: [phone] F: [phone] F: [phone] Physical Therapy Plan of Care Date of Evaluation: Date of Surgery: 10/23/22 Diagnosis: R TKA Assessment: 67 y/o female s/p R TKA 10/23/22. She was d/c home after 3 day hospital stay in which she had home PT 2x/week for 3 weeks. 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 Examination shows good knee AROM 0-124, good quad set, good LE strength, and I with functional mobility. Pt declined PT as she feels she is 'where I need to be' and has met her own goals. Therefore focused on a good home program for pt to continue with at home. Will keep chart open for 30 days in case pt wants to return to progress HEP and strength Frequency and Duration: The patient will be seen Short Term Goals: Penitentiary Goals: Will keep chart open 30 days in case pt wants to return to PT to progress HEP or strengthen Treatment Plan: Modalities to reduce pain, spasms and effusion. Manual therapy to restore motion and function. Therapeutic exercise to improve strength and flexibility. Neuromuscular re-education for posture and balance. Therapeutic activities to return to functional activities of daily living. Electronically signed by: Nelia Mitchell PT Please sign and return to therapist. Thank you for your referral.
--- NOTE | 2023-01-22 16:04 | MHC.PT.DC ---
[facility] [place] [facility] [place] [facility] [place] [facility] [address] Olivia Conti 140 [facility] [phone] F: [phone] F: [phone] F: [phone] F: [phone] Physical Therapy Discharge Report Diagnosis: R TKA Date of Surgery: 10/23/22 Date of Evaluation: 11/29/22 Date of Discharge: 01/22/23 Treatments to Date: 1 Cancellations to Date: 0 No Shows to Date: 0 Discharge Status: Patient Elected to Stop Discharge Summary: Following evaluation, pt did not want to have PT as she reports able to perform ADL's and no pain. However kept chart open for 30 days in case pt wanted to return. At this time, will close chart. Electronically signed by: Nelia Mitchell PT Please sign and return to therapist. Thank you for your referral.
== END 2023-01-22 16:04 | disposition home or self-care (01) ==
LOC: HO.PT 12:59
PROVIDERS: PCP Internal Medicine; Visit Provider Orthopaedic Surgery
DX: Z96.651 Presence of right artificial knee joint (principal)
CPT/HCPCS: 97110; 97161

== ENCOUNTER 2022-12-17 12:03 | Outpatient (REF) | payer MEDICARE, SELFPAY | END 2022-12-17 12:04 | disposition home or self-care (01) | LOC: HO.BBR 12:03 | PROVIDERS: PCP Internal Medicine; Visit Provider Internal Medicine Gastroenterology | DX: Z13.89 Encounter for screening for other disorder (principal) ==

== ENCOUNTER 2022-12-20 13:18 | Outpatient (AMB) | payer MEDICARE, SELFPAY ==
--- NOTE | 2022-12-20 13:43 | A.OFFVIS_ITS ---
Intake Vital Signs 12/20/22 13:45 Height 5 ft 8 in Weight 212 lb BMI 32.2 Intake Visit Reasons: PO-RT TKA 10/23/22 NE Intake Note: Isabel a 67 year old female who presents today for a post operative right TKA on 10/23/22 NE. Patient reports she is doing really well, denies pain. She has no concerns today. Allergies adhesive tape [ADHESIVE TAPE] Allergy (Intermediate, Verified 12/20/22 13:47) rednes from band-aids HPI PO-RT TKA 10/23/22 NE 2 HPI Details 67-year-old female who returns to the office today for post-op right TKA, 10/23/[address] Degroot. She states she has no pain and is doing very well overall. She has no concerns today. 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, major, recurrent Hemochromatosis History of PAT (paroxysmal atrial tachycardia) Osteoarthritis Rotator cuff impingement syndrome of right shoulder Surgical History History of excision of lesion (08/16/14) History of partial hysterectomy (~2009) Hx of arthroplasty (10/09/16) Hx of cholecystectomy Hx of colonoscopy (10/07/18) Hx of hemorrhoidectomy Hx of toe surgery (~1995) Family History Father HTN (hypertension) Lung cancer Mother Osteoporosis Sister Hemochromatosis Paternal Grandfather Skin cancer Bone cancer Maternal Grandmother Breast cancer Other Mental health disorder Social History Household Members: None Housing: Apartment Are you a primary acute care physician to a significant other at home: No Do you presently have visiting nurse or other home services: No Alcohol intake: current Alcohol intake frequency: a few times a month Alcohol type: wine Patient Tobacco Use Status: Former Tobacco user Quit Date: age 44 Tobacco use type: Cigarette Cigarette Packs Per Day: 2 Cigarettes Per Day: 40.0 Years Smoked: 29 e-Cigarette/Vaping Use: Never Used Advance Directives Date on File: 10/08/16 service: No Current occupational status: retired and disabled Current occupation: right handed Cognitive needs: No Hearing needs: No Vision needs: Yes Review of Systems Const All systems reviewed & are unremarkable except as noted in HPI and below Physical Exam Vital Signs: BMI result Body Mass Index 32.2 Extrem Other: Right knee: Incision well healed. No erythema or joint effusion. ROM is 0-115 degrees. Calf supple, nontender. NVI. Assessment & Plan Assessment & Plan (1) Status post total right knee replacement: Code(s): Z96.651 - Presence of right artificial knee joint Plan She will continue working on her home exercises and will increase activity as tolerated. She will see us back in [address] Degroot and new x-rays, sooner if needed. Medications: Discontinued celecoxib 200 mg PO DAILY 90 days 90 caps 0RF sertraline 150 mg (1.5 x 100 mg) PO DAILY 90 days 135 tabs 1RF Patient Instructions: Scribed for Mahsa Jasmine PA-C, by Sujit Ramirez medical management specialist, on 12/20/2022 at 1:30 PM EST. I, Mahsa Jasmine PA-C, have personally reviewed and agree with the information entered by the scribe. Coding Level of Care Code Global (29082) Diagnoses Status post total right knee replacement Z96.651
[2022-12-20 13:45] VITALS: BMI 32.2
== END 2022-12-20 14:50 | disposition home or self-care (01) ==
PROVIDERS: PCP Internal Medicine; Visit Provider Physician Assistant
DX: Z96.651 Presence of right artificial knee joint (principal)
CPT/HCPCS: 99024

== ENCOUNTER → 2022-12-20 13:18 | Outpatient (BNVA) | payer MEDICARE, SELFPAY | PROVIDERS: PCP Internal Medicine; Visit Provider Physician Assistant ==

== ENCOUNTER 2022-12-25 12:10 | Outpatient (AMB) | payer MEDICARE, SELFPAY ==
--- NOTE | 2021-12-26 09:19 | AM.OFFVISMDC ---
Intake Intake Visit Reasons: SWV Allergies adhesive tape [ADHESIVE TAPE] Allergy (Intermediate, Verified 12/22/21 14:12) BLISTER PFSH Medical History Abnormal abdominal ultrasound Depression Depression, major, recurrent Hemochromatosis History of PAT (paroxysmal atrial tachycardia) Osteoarthritis Surgical History History of excision of lesion (08/16/14) History of partial hysterectomy (~2009) Hx of arthroplasty (10/09/16) Hx of cholecystectomy Hx of colonoscopy (10/07/18) Hx of toe surgery (~1995) Family History Father HTN (hypertension) Lung cancer Mother Osteoporosis Sister Hemochromatosis Paternal Grandfather Skin cancer Bone cancer Maternal Grandmother Breast cancer Other Mental health disorder Social History Household Members: Spouse Housing: Apartment Alcohol intake: current Alcohol intake frequency: a few times a month Alcohol type: wine Patient Tobacco Use Status: Former Tobacco user Cigarette Packs Per Day: 2 Cigarettes Per Day: 40.0 Years Smoked: 29 Current occupational status: disabled Current occupation: right handed Questionnaire Medicare Wellness Checkup What gender do you identify with?: female During the past 4 weeks, how much have you been bothered by emotional problems such as feeling anxious, depressed, irritable, sad or downhearted, and blue?: slightly During the past 4 weeks, has your physical & emotional health limited your social activities with family, friends, neighbors, or groups?: slightly During the past 4 weeks, how much bodily pain have you generally had?: severe pain During the past 4 weeks, was someone available to help you if you needed & wanted help?: yes, as much as I wanted During the past 4 weeks, what was the hardest physical activity you could do for at least 2 minutes?: moderate Can you get to places out of walking distance without help? (For eg., can you travel alone on buses, taxis or drive your car?): Yes Can you go shopping for groceries or clothes without someone's help?: No Can you prepare your own meals?: Yes Can you do your housework without help?: Yes Because of any health problems, do you need the help of another person with your personal care needs such as eating, bathing, dressing or getting around the house?: No Can you handle your own money without help?: Yes During the past 4 weeks, how would you rate your health in general?: good During the past 4 weeks how have things been going for you?: pretty well Are you having difficulties driving your car?: no Do you always fasten your seat belt when you are in a car?: yes, usually During past 4 weeks, have you been bothered by the following: never: Falling or dizzy when standing up, Sexual problems?, Trouble eating well?, Teeth or denture problems?, Problems using the telephone? and Tiredness or fatigue? Have you fallen 2 or more times in the past year?: No Are you afraid of falling?: No Are you a smoker?: no During the past 4 weeks, how many drinks of wine, beer, or other alcoholic beverages did you have?: 6-9 drinks per week Do you exercise for about 20 minutes 3 or more times a week?: no, I usually do not exercise this much Have you been given information to help with the following?: no: Hazards in your house that might hurt you? and no: Keeping track of your medications? How often do you have trouble taking medicines the way you have been told to take them?: I always take medicine as prescribed How confident are you that you can control & manage most of your health problems?: very confident What is your race?: White C[place]
[2022-12-25 12:10] VITALS: BP 122/80; PULSE 85; O2SAT 98; BMI 32.1
--- NOTE | 2022-12-25 12:10 | A.OFFVIS_ITS ---
Intake Vital Signs 12/25/22 12:10 Height 5 ft 8 in Weight 211 lb 2 oz BMI 32.1 BP 122/80 Blood Pressure Location Rt brachial Position Sitting Pulse 85 Pulse Source Pulse Oximeter Pulse Oximetry (%) 98 Oxygen Delivery Method Room Air Intake Visit Reasons: SWV G0439 Allergies adhesive tape [ADHESIVE TAPE] Allergy (Intermediate, Verified 12/25/22 12:12) rednes from band-aids Medication List - Last Reconciled 12/25/22 by Kathleen Ray MD celecoxib 200 mg PO BID diltiazem HCl 120 mg PO DAILY gabapentin 300 mg PO BEDTIME sertraline 150 mg PO DAILY HPI HPI Comments History of Present Illness Details AWV Medical/social history reviewed Past medical history reviewed [place] of care / care team list updated Surgical/ hospitalization history reviewed Current medications including OTC and supplements reviewed Family history reviewed Tobacco controlled form updated Alcohol use form updated Illicit drug use in social history reviewed Current diagnosis of depression ?screening updated Appropriate PHQ 2/PHQ-9 completed . Vital signs reviewed Alcohol tobacco drug use reviewed and discussed . MMSE completed . ? Fall risk: ?Assessed Fall history: ?None Have you had any falls with injury in the past year?? No Have you had 2 or more falls in the past year?? No Fall risk assessment completed Home safety discussed with the patient Functional ability assessed and discussed and documented Activities of daily living reviewed and appropriate actions taken . HRA filled out by the patient and reviewed by provider and scanned . Appropriate written screening schedule established . Any health advise needed provided . Advance care planning discussed with the patient , necessary paperwork filled Examination IPPE/AWE: Balance intact Romberg intact Tandem walk failed walk-in turn intact rise from sit to stand intact . ?Hearing ?whisper test pass . Medication list reviewed, patient is stable on medications All other providers patient is seeing discussed and noted . [facility] Medical History 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, major, recurrent Hemochromatosis History of PAT (paroxysmal atrial tachycardia) Osteoarthritis Rotator cuff impingement syndrome of right shoulder Surgical History History of excision of lesion (08/16/14) History of partial hysterectomy (~2009) Hx of arthroplasty (10/09/16) Hx of cholecystectomy Hx of colonoscopy (10/07/18) Hx of hemorrhoidectomy Hx of toe surgery (~1995) Family History Father HTN (hypertension) Lung cancer Mother Osteoporosis Sister Hemochromatosis Paternal Grandfather Skin cancer Bone cancer Maternal Grandmother Breast cancer Other Mental health disorder Social History Household Members: None Housing: Apartment Are you a primary childbirth and infant care teacher to a significant other at home: No Do you presently have visiting nurse or other home services: No Alcohol intake: current Alcohol intake frequency: a few times a month Alcohol type: wine Patient Tobacco Use Status: Former Tobacco user Quit Date: age 44 Tobacco use type: Cigarette Cigarette Packs Per Day: 2 Cigarettes Per Day: 40.0 Years Smoked: 29 e-Cigarette/Vaping Use: Never Used Advance Directives Date on File: 10/08/16 service: No Current occupational status: retired and disabled Current occupation: right handed Cognitive needs: No Hearing needs: No Vision needs: Yes Questionnaire Medicare Wellness Checkup [age] What gender do you identify with?: female During the past 4 weeks, how much have you been bothered by emotional problems such as feeling anxious, depressed, irritable, sad or downhearted, and blue?: slightly During the past 4 weeks, has your physical & emotional health limited your social activities with family, friends, neighbors, or groups?: not at all During the past 4 weeks, how much bodily pain have you generally had?: very mild pain During the past 4 weeks, was someone available to help you if you needed & wanted help?: yes, as much as I wanted During the past 4 weeks, what was the hardest physical activity you could do for at least 2 minutes?: moderate Can you get to places out of walking distance without help? (For eg., can you travel alone on buses, taxis or drive your car?): Yes Can you go shopping for groceries or clothes without someone's help?: Yes Can you prepare your own meals?: Yes Can you do your housework without help?: Yes Because of any health problems, do you need the help of another person with your personal care needs such as eating, bathing, dressing or getting around the house?: No Can you handle your own money without help?: Yes During the past 4 weeks, how would you rate your health in general?: very good During the past 4 weeks how have things been going for you?: pretty well Are you having difficulties driving your car?: no Do you always fasten your seat belt when you are in a car?: yes, usually During past 4 weeks, have you been bothered by the following: never: Falling or dizzy when standing up, Sexual problems?, Trouble eating well?, Teeth or denture problems?, Problems using the telephone? and Tiredness or fatigue? Have you fallen 2 or more times in the past year?: No Are you afraid of falling?: No Are you a smoker?: no During the past 4 weeks, how many drinks of wine, beer, or other alcoholic beverages did you have?: 2-5 drinks per week Do you exercise for about 20 minutes 3 or more times a week?: yes, most of the time Have you been given information to help with the following?: yes: Hazards in your house that might hurt you? and yes: Keeping track of your medications? How often do you have trouble taking medicines the way you have been told to take them?: I always take medicine as prescribed How confident are you that you can control & manage most of your health problems?: very confident What is your race?: White Mini Mental State Exam (MMSE) Orientation What is the (year) (season) (date) (day) (month)?: year, season, date, day and month Where are we (state) (county) (town or city) (hospital) (floor)?: state, county, town or city, hospital/clinic and floor Score Score: 10 Activity of Daily Living Bathing - sponge bath, tub bath or shower: receives no assistance (gets in/out by self, if usual bathing means Dressing - getting clothes from closets & drawers, including inner/outer garments & fasteners.: gets clothes & gets completely dressed without help Toileting - going to the 'toilet room' for urine/bowel elimination & cleaning self/arranging clothes: goes to toilet room, cleans self, arranges clothes without help Transfer: moves in & out of bed and chair without help (may use support object) Continence: controls urination/bowel movements completely by self Feeding: feeds self without help Total Score: 0 Information obtained from: patient Using telephone: independent Traveling: independent Shopping: independent Preparing meals: independent Housework: independent Taking medicine: independent Managing money: independent Physical Exam Vital Signs: Last Vital Signs Pulse 85 12/25/22 12:10 BP 122/80 12/25/22 12:10 Pulse Ox 98 12/25/22 12:10 Oxygen Delivery Method Room Air 12/25/22 12:10 BMI result Body Mass Index 32.1 Assessment & Plan Assessment & Plan (1) Medicare annual wellness visit, subsequent: Code(s): Z. - Encounter for general adult medical examination without abnormal findings Orders: Orders 2 Comprehensive Met. Panel 2 Months E83.119 - Hemochromatosis, unspecified, F33.9 - Major depressive disorder, recurrent, unspecified, F41.1 - Generalized anxiety disorder, M19.90 - Unspecified osteoarthritis, unspecified site Ferritin 2 Months E83.119 - Hemochromatosis, unspecified, F33.9 - Major depressive disorder, recurrent, unspecified, F41.1 - Generalized anxiety disorder, M19.90 - Unspecified osteoarthritis, unspecified site LDL Cholesterol Direct 2 Months E83.119 - Hemochromatosis, unspecified, F33.9 - Major depressive disorder, recurrent, unspecified, F41.1 - Generalized anxiety disorder, M19.90 - Unspecified osteoarthritis, unspecified site Complete Blood Count Auto Diff 2 Months E83.119 - Hemochromatosis, unspecified, F33.9 - Major depressive disorder, recurrent, unspecified, F41.1 - Generalized anxiety disorder, M19.90 - Unspecified osteoarthritis, unspecified site Medications: Discontinued celecoxib 200 mg PO DAILY 90 days 90 caps 0RF sertraline 150 mg (1.5 x 100 mg) PO DAILY 90 days 135 tabs 1RF Coding Level of Care Code Medicare Subsequent (G0439) Diagnoses Medicare annual wellness visit, subsequent Z CPT Codes Advance Care Planning - Time spent: 1-15 minutes, on File ([id number]) Advance Care Planning Forms completed: [facility] Time spent: 1-15 minutes, on File
== END 2022-12-25 12:56 | disposition home or self-care (01) ==
LOC: HO.HMGC 12:10
PROVIDERS: PCP Internal Medicine; Visit Provider Internal Medicine
DX: Z00.00 Encounter for general adult medical examination without abnormal findings (principal)
CPT/HCPCS: 1123F; G0439

== ENCOUNTER 2023-01-22 12:03 | Outpatient (REF) | payer MEDICARE, SELFPAY | END 2023-01-22 12:04 | disposition home or self-care (01) | LOC: HO.BBR 12:03 | PROVIDERS: PCP Internal Medicine; Visit Provider Internal Medicine Gastroenterology | DX: Z13.89 Encounter for screening for other disorder (principal) ==

== ENCOUNTER 2023-01-31 12:01 | Outpatient (REF) | payer MEDICARE, SELFPAY ==
--- NOTE | ~2023-01-31 | XR_ITS ---
EXAMINATION: XR KNEE, RIGHT XR KNEE, BILATERAL CLINICAL INFORMATION: Pain. COMPARISON: Comparison is made to previous study dated 08/15/2022. Also 10/23/2022 TECHNIQUE: Standing image of the knees and detailed 2 views of the right knee. FINDINGS: There is no convincing evidence for hardware failure. Left knee is similar in appearance. 2 part prosthesis. No acute finding. 2 part prosthesis is seen on the right. Some dystrophic calcification likely forming behind the patella inferiorly. This may be in the joint. Some calcifications forming posterior. May be dystrophic. XR/XR knee standing BI IMPRESSION: Some calcifications developing around the right knee prosthesis of uncertain etiology. Could be dystrophic. Loose bodies cannot be excluded.
--- NOTE | ~2023-01-31 | XR_ITS ---
EXAMINATION: XR KNEE, RIGHT XR KNEE, BILATERAL CLINICAL INFORMATION: Pain. COMPARISON: Comparison is made to previous study dated 08/15/2022. Also 10/23/2022 TECHNIQUE: Standing image of the knees and detailed 2 views of the right knee. FINDINGS: There is no convincing evidence for hardware failure. Left knee is similar in appearance. 2 part prosthesis. No acute finding. 2 part prosthesis is seen on the right. Some dystrophic calcification likely forming behind the patella inferiorly. This may be in the joint. Some calcifications forming posterior. May be dystrophic. XR/XR knee RT 2V IMPRESSION: Some calcifications developing around the right knee prosthesis of uncertain etiology. Could be dystrophic. Loose bodies cannot be excluded.
== END 2023-01-31 12:02 | disposition home or self-care (01) ==
LOC: HO.HOSX 12:01
PROVIDERS: Visit Provider Orthopaedic Surgery
DX: Z96.651 Presence of right artificial knee joint (principal)
CPT/HCPCS: 73560; 73565; 99212

== ENCOUNTER 2023-01-31 13:00 | Outpatient (AMB) | payer MEDICARE, SELFPAY ==
--- NOTE | 2023-01-31 13:06 | A.OFFVIS_ITS ---
Intake Vital Signs 01/31/23 13:20 Height 5 ft 8 in Weight 211 lb BMI 32.1 Intake Visit Reasons: Po-f/u RT TKA 10/23/22 w xrays Intake Note: Isabel a 67 year old female who presents today for a post operative right TKA on 10/23/22 NE. Patient reports she is doing really well, denies pain. She has no concerns today. Allergies adhesive tape [ADHESIVE TAPE] Allergy (Intermediate, Verified 01/31/23 13:20) rednes from band-aids HPI Po-f/u RT TKA 10/23/22 w xrays HPI Details Isabel is a 67 year old woman who presents ~3 months S/P right TKA. She says she is doing well, without any pain and she has good ROM. She is happy with the results of her surgery. She now walks without using her cane which she is happy about. [facility] Medical History 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, major, recurrent Hemochromatosis History of PAT (paroxysmal atrial tachycardia) Osteoarthritis Rotator cuff impingement syndrome of right shoulder Surgical History History of excision of lesion (08/16/14) History of partial hysterectomy (~2009) Hx of arthroplasty (10/09/16) Hx of cholecystectomy Hx of colonoscopy (10/07/18) Hx of hemorrhoidectomy Hx of toe surgery (~1995) Family History Father HTN (hypertension) Lung cancer Mother Osteoporosis Sister Hemochromatosis Paternal Grandfather Skin cancer Bone cancer Maternal Grandmother Breast cancer Other Mental health disorder Social History Household Members: None Housing: Apartment Are you a primary intensive care ambulance paramedic to a significant other at home: No Do you presently have visiting nurse or other home services: No Alcohol intake: current Alcohol intake frequency: a few times a month Alcohol type: wine Patient Tobacco Use Status: Former Tobacco user Quit Date: age 44 Tobacco use type: Cigarette Cigarette Packs Per Day: 2 Cigarettes Per Day: 40.0 Years Smoked: 29 e-Cigarette/Vaping Use: Never Used Advance Directives Date on File: 10/08/16 service: No Current occupational status: retired and disabled Current occupation: right handed Cognitive needs: No Hearing needs: No Vision needs: Yes Review of Systems Const All systems reviewed & are unremarkable except as noted in HPI and below Physical Exam Vital Signs: BMI result Body Mass Index 32.1 Const General: no acute distress, alert and awake Orientation/consciousness: patient oriented x3 HEENT Head: Yes normocephalic and Yes atraumatic Eyes EOM: EOMs intact bilaterally Resp Effort & Inspection: normal respiratory effort and able to speak in complete sentences Cardio Jugular venous distension: no JVD Skin General skin exam: turgor normal Rashes: no rashes Neuro General: patient oriented x3 Extrem Other: Right Knee: Well-healed incision Doing well 0-130 degrees ROM Psych Appearance: grossly normal Affect: normal affect Attitude: cooperative Results Reviewed Results Reviewed: I personally reviewed relevant radiographs. Right total knee arthroplasty in expected post operative position with no hardware complications or evidence of loosening Assessment & Plan Assessment & Plan (1) Status post total right knee replacement: Code(s): Z96.651 - Presence of right artificial knee joint Plan: This is a 67 year old woman S/P right TKA, DOS: 10/23/22. She is doing well, denies any pain and has good ROM. She ambulates without a cane which she is happy about. I recommend she continue to work on strengthening and activity as tolerated. She can follow up prn. Discussed dental prophylaxis. Plan Scribed for Cosmo Degroot MD by Mika Putnam, biomedical equipment support specialist, on 01/31/23 at 1:25 PM, EST. Orders: Orders XR knee standing BI 01/31/23 M25.569 - Pain in unspecified knee XR knee RT 2V 01/31/23 M25.569 - Pain in unspecified knee Coding Level of Care Code Global (04574) Diagnoses Status post total right knee replacement Z96.651
[2023-01-31 13:20] VITALS: BMI 32.1
== END 2023-01-31 13:28 | disposition home or self-care (01) ==
PROVIDERS: PCP Internal Medicine; Visit Provider Orthopaedic Surgery
DX: Z47.1 Aftercare following joint replacement surgery (principal); Z96.651 Presence of right artificial knee joint
CPT/HCPCS: 99213

== ENCOUNTER 2023-02-20 13:14 | Outpatient (REF) | payer MEDICARE, SELFPAY | END 2023-02-20 13:15 | disposition home or self-care (01) | LOC: HO.BBR 13:14 | PROVIDERS: PCP Internal Medicine; Visit Provider Internal Medicine Gastroenterology | DX: Z13.89 Encounter for screening for other disorder (principal) ==

== ENCOUNTER 2023-03-26 10:58 | Outpatient (REF) | payer MEDICARE, SELFPAY | END 2023-03-26 10:59 | disposition home or self-care (01) | LOC: HO.BBR 10:58 | PROVIDERS: PCP Internal Medicine; Visit Provider Internal Medicine Gastroenterology | DX: Z13.89 Encounter for screening for other disorder (principal) ==

== ENCOUNTER 2023-04-10 15:14 | Outpatient (AMB) | payer MEDICARE, SELFPAY ==
--- NOTE | 2023-04-10 15:16 | A.OFFPC_ITS ---
Vital Signs 04/10/23 15:18 Height 5 ft 8 in Weight 214 lb BMI 32.5 BP 122/80 Blood Pressure Location Rt brachial Position Sitting Pulse 75 Pulse Source Pulse Oximeter Pulse Oximetry (%) 98 Oxygen Delivery Method Room Air Intake Visit Reasons: Ear pain Allergies adhesive tape [ADHESIVE TAPE] Allergy (Intermediate, Verified 04/10/23 15:18) rednes from band-aids Medication List - Last Reconciled 04/10/23 by Kathleen Ray MD diltiazem HCl 120 mg PO DAILY gabapentin 300 mg PO BEDTIME sertraline 150 mg (1.5 x 100 mg) PO DAILY Tobacco use date assessed: 04/10/23 Fall risk assessment: No Falls in past year Last assessed Fall Risk: 04/10/23 Dental Screening Dental Screen Date: 04/10/23 Did you have a dental visit in the last 12 months?: No Was dental information given to patient?: Patient declined HPI Ear pain HPI Details Patient is 67-year-old female she came in today to be evaluated for right ear pain and she is also due for her regular follow-up She has been having pain right ear since past 3 days There is no fever chills there is no sore throat no cough no chest pain no chest congestion On examination her ear is within normal limit there is no sign of inflammation or infection I am treating her with NSAIDs and I have also sent few tablets of Percocet to be taken at night as patient is having difficulty sleeping because of pain Hemochromatosis induced cirrhosis managed by [facility]. She is having phlebotomy done every 4 weeks PAT stable with diltiazem 120 mg daily Blood pressure is stable Patient is on gabapentin 300 mg at night for pain management, patient has multiple joint osteoarthritis BMI is elevated patient is trying to lose weight Anxiety: Patient is currently on sertraline 150 mg, she is stable at current dose Labs are due, order placed patient reminded [facility] Medical History 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, major, recurrent Rotator cuff impingement syndrome of right shoulder Osteoarthritis History of PAT (paroxysmal atrial tachycardia) Hemochromatosis Surgical History Hx of hemorrhoidectomy Hx of cholecystectomy History of excision of lesion (08/16/14) History of partial hysterectomy (~2009) Hx of toe surgery (~1995) Hx of colonoscopy (10/07/18) Hx of arthroplasty (10/09/16) Family History Father HTN (hypertension) Lung cancer Mother Osteoporosis Sister Hemochromatosis Paternal Grandfather Skin cancer Bone cancer Maternal Grandmother Breast cancer Other Mental health disorder Social History Household Members: None Housing: Apartment Are you a primary physician locums urgent care to a significant other at home: No Do you presently have visiting nurse or other home services: No Alcohol intake: current Alcohol intake frequency: a few times a month Alcohol type: wine Patient Tobacco Use Status: Former Tobacco user Quit Date: age 44 Tobacco use type: Cigarette Cigarette Packs Per Day: 2 Cigarettes Per Day: 40.0 Years Smoked: 29 Packs Per Year: 58 Packs per year/per ci.00 e-Cigarette/Vaping Use: Never Used Advance Directives Date on File: 10/08/16 service: No Current occupational status: retired and disabled Current occupation: right handed Cognitive needs: No Hearing needs: No Vision needs: Yes Questionnaire Thrive Questionnaire Date Thrive assessed: 09/26/22 BUZZ-7 AMB Questionnaire BUZZ-7 Date BUZZ - 7 assessed: 09/26/22 Source: Developed by Drs. Aidan Benson, Claudia Unger, Fermín Mei and colleagues, with an educational nikhil from [employer]. Review of Systems Const Denies chills and Denies fever(s) ENT Denies epistaxis and Denies nasal discharge Card Denies chest pain Resp Denies chest congestion, Denies cough and Denies hemoptysis GI Denies diarrhea and Denies nausea Skin/Breast Denies rash Neuro Reports no additional complaints Psych Reports no additional complaints Endo Reports no additional complaints Physical exam (Primary Care) Vital Signs: Last Vital Signs Pulse 75 04/10/23 15:18 BP 122/80 04/10/23 15:18 Pulse Ox 98 04/10/23 15:18 Oxygen Delivery Method Room Air 04/10/23 15:18 BMI result Body Mass Index 32.5 Tobacco/Smoking Status: Tobacco use Status Tobacco use date assessed 04/10/23 04/10/23 15:19 Patient Tobacco Use Status Former Tobacco user 04/10/23 15:18 Tobacco use type Cigarette 04/10/23 15:18 e-Cigarette/Vaping Use Never Used 04/10/23 15:18 Thrive Assessment: Date of Thrive Assessment Date Thrive assessed 09/26/22 04/10/23 15:18 Const General: cooperative, comfortable and no acute distress Orientation/consciousness: patient oriented x3 HENMT Other: Right ear within normal limit there is no erythema inflammation light reflexes intact no pain with tragus pressure Slight discomfort over TMJ with pressure Head: Yes normocephalic Eyes General: appearance normal, both eyes and all related structures Neck Neck: Yes supple Resp Effort & Inspection: normal respiratory effort, no cough and no stridor Cardio Rhythm: regular rhythm Heart sounds: S1 normal heart sound present and S2 normal heart sound present Skin General skin exam: turgor normal Neuro General: patient oriented x3, tone normal and moves all extremities Extrem Right lower extremity: no edema Left lower extremity: no edema Assessment and Plan Assessment & Plan (1) Ear pain, right: Code(s): H92.01 - Otalgia, right ear (2) Depression, major, recurrent: Code(s): F33.9 - Major depressive disorder, recurrent, unspecified Qualifiers: Active/Remission status: in partial remission Qualified Code(s): F33.41 - Major depressive disorder, recurrent, in partial remission (3) Hemochromatosis: Comment: hx therapeutic phlebotomies-last was end of July 2022 Code(s): E83.119 - Hemochromatosis, unspecified Qualifiers: Hemochromatosis type: hereditary Qualified Code(s): E83.110 - Hereditary hemochromatosis (4) Obesity due to excess calories: Code(s): E66.09 - Other obesity due to excess calories Qualifiers: Obesity classification: adult class 1 (BMI 30 - 34.9) Serious obesity comorbidity presence: with serious comorbidity Body mass index: BMI 32.0-32.9 Qualified Code(s): E66.09 - Other obesity due to excess calories; Z68.32 - Body mass index [BMI] 32.0-32.9, adult (5) Anxiety, generalized: Code(s): F41.1 - Generalized anxiety disorder (6) PAT (paroxysmal atrial tachycardia): Code(s): I47.1 - Supraventricular tachycardia (7) Diabetes mellitus type 2 in obese: Code(s): E11.69 - Type 2 diabetes mellitus with other specified complication; E66.9 - Obesity, unspecified (8) Osteoarthritis: Code(s): M19.90 - Unspecified osteoarthritis, unspecified site Qualifiers: Osteoarthritis location: multiple joints Osteoarthritis type: primary Qualified Code(s): M15.9 - Polyosteoarthritis, unspecified Plan Patient is 67-year-old female she came in today to be evaluated for right ear pain and she is also due for her regular follow-up She has been having pain right ear since past 3 days There is no fever chills there is no sore throat no cough no chest pain no chest congestion On examination her ear is within normal limit there is no sign of inflammation or infection I am treating her with NSAIDs and I have also sent few tablets of Percocet to be taken at night as patient is having difficulty sleeping because of pain Hemochromatosis induced cirrhosis managed by [facility]. She is having phlebotomy done every 4 weeks PAT stable with diltiazem 120 mg daily Blood pressure is stable Patient is on gabapentin 300 mg at night for pain management, patient has multiple joint osteoarthritis BMI is elevated patient is trying to lose weight Anxiety: Patient is currently on sertraline 150 mg, she is stable at current dose Labs are due, order placed patient reminded Orders: Orders LDL Cholesterol Direct Today E11.69 - Type 2 diabetes mellitus with other specified complication, E66.09 - Other obesity due to excess calories, E66.9 - Obesity, unspecified, E83.119 - Hemochromatosis, unspecified, F33.9 - Major depressive disorder, recurrent, unspecified, F41.1 - Generalized anxiety disorder, I47.1 - Supraventricular tachycardia, R52 - Pain, unspecified Hemoglobin A1c Today E11.69 - Type 2 diabetes mellitus with other specified complication, E66.09 - Other obesity due to excess calories, E66.9 - Obesity, unspecified, E83.119 - Hemochromatosis, unspecified, F33.9 - Major depressive disorder, recurrent, unspecified, F41.1 - Generalized anxiety disorder, I47.1 - Supraventricular tachycardia, R52 - Pain, unspecified Microalbumin, Random (w Creat) Today E11.69 - Type 2 diabetes mellitus with other specified complication, E66.09 - Other obesity due to excess calories, E66.9 - Obesity, unspecified, E83.119 - Hemochromatosis, unspecified, F33.9 - Major depressive disorder, recurrent, unspecified, F41.1 - Generalized anxiety disorder, I47.1 - Supraventricular tachycardia, R52 - Pain, unspecified Complete Blood Count Auto Diff Today E11.69 - Type 2 diabetes mellitus with other specified complication, E66.09 - Other obesity due to excess calories, E66.9 - Obesity, unspecified, E83.119 - Hemochromatosis, unspecified, F33.9 - Major depressive disorder, recurrent, unspecified, F41.1 - Generalized anxiety disorder, I47.1 - Supraventricular tachycardia, R52 - Pain, unspecified Comprehensive Met. Panel Today E11.69 - Type 2 diabetes mellitus with other specified complication, E66.09 - Other obesity due to excess calories, E66.9 - Obesity, unspecified, E83.119 - Hemochromatosis, unspecified, F33.9 - Major depressive disorder, recurrent, unspecified, F41.1 - Generalized anxiety disorder, I47.1 - Supraventricular tachycardia, R52 - Pain, unspecified Ferritin Today E83.119 - Hemochromatosis, unspecified Medications: New naproxen 500 mg PO BID 7 days PRN 14 tabs 0RF pain oxycodone-acetaminophen 5-325 mg (Percocet) Partial Fill upon patient request. 1 tab PO TID 7 days PRN 20 tabs 0RF pain Coding Level of Care Code Est Pt Level 4 (64367) Diagnoses Ear pain, right H92.01 Recurrent major depressive disorder, in partial remission F33.41 Active/Remission status: in partial remission Hereditary hemochromatosis E83.110 Hemochromatosis type: hereditary Class 1 obesity due to excess calories with serious comorbidity and body mass index (BMI) of 32.0 to 32.9 in adult E66.09; Z68.32 Obesity classification: adult class 1 (BMI 30 - 34.9) Serious obesity comorbidity presence: with serious comorbidity Body mass index: BMI 32.0-32.9 Anxiety, generalized F41.1 PAT (paroxysmal atrial tachycardia) I47.1 Diabetes mellitus type 2 in obese E11.69; E66.9 Primary osteoarthritis involving multiple joints M15.9 Osteoarthritis location: multiple joints Osteoarthritis type: primary
[2023-04-10 15:18] VITALS: BP 122/80; PULSE 75; O2SAT 98; BMI 32.5
== END 2023-04-10 15:31 | disposition home or self-care (01) ==
PROVIDERS: PCP Internal Medicine; Visit Provider Internal Medicine
DX: H92.01 Otalgia, right ear (principal); F33.41 Major depressive disorder, recurrent, in partial remission; E83.110 Hereditary hemochromatosis; E11.69 Type 2 diabetes mellitus with other specified complication; I47.1 Supraventricular tachycardia; E66.09 Other obesity due to excess calories; Z68.32 Body mass index [BMI] 32.0-32.9, adult; F41.1 Generalized anxiety disorder; E66.9 Obesity, unspecified; M15.9 Polyosteoarthritis, unspecified
CPT/HCPCS: 99214

== ENCOUNTER 2023-04-29 13:06 | Outpatient (REF) | payer MEDICARE, SELFPAY | END 2023-04-29 13:07 | disposition home or self-care (01) | LOC: HO.BBR 13:06 | PROVIDERS: PCP Internal Medicine; Visit Provider Internal Medicine Gastroenterology | DX: Z13.89 Encounter for screening for other disorder (principal) ==

== ENCOUNTER 2023-06-25 13:40 | Outpatient (REF) | payer MEDICARE, SELFPAY | END 2023-06-25 13:41 | disposition home or self-care (01) | LOC: HO.BBR 13:40 | PROVIDERS: PCP Internal Medicine; Visit Provider Internal Medicine Gastroenterology | DX: Z13.89 Encounter for screening for other disorder (principal) ==

== ENCOUNTER 2023-07-02 12:55 | Outpatient (REF) | payer MEDICARE, SELFPAY | END 2023-07-02 12:56 | disposition home or self-care (01) | LOC: HO.BBR 12:55 | PROVIDERS: PCP Internal Medicine; Visit Provider Internal Medicine Gastroenterology | DX: Z13.89 Encounter for screening for other disorder (principal) ==

== ENCOUNTER 2023-07-30 13:00 | Outpatient (REF) | payer MEDICARE, SELFPAY | END 2023-07-30 13:01 | disposition home or self-care (01) | LOC: HO.BBR 13:00 | PROVIDERS: PCP Internal Medicine; Visit Provider Internal Medicine Gastroenterology | DX: Z13.89 Encounter for screening for other disorder (principal) ==

== ENCOUNTER 2023-09-11 12:55 | Outpatient (REF) | payer MEDICARE, SELFPAY | END 2023-09-11 12:56 | disposition home or self-care (01) | LOC: HO.BBR 12:55 | PROVIDERS: PCP Internal Medicine; Visit Provider Internal Medicine Gastroenterology | DX: Z13.89 Encounter for screening for other disorder (principal) ==

== ENCOUNTER 2023-09-25 12:37 | Outpatient (AMB) | payer MEDICARE, SELFPAY ==
[2023-09-25 12:43] VITALS: BP 122/76; PULSE 85; O2SAT 97; BMI 32.7
--- NOTE | 2023-09-25 12:43 | MHC.PC.OV ---
Vital Signs 09/25/23 12:43 Height 5 ft 8 in Weight 215 lb BMI 32.7 BP 122/76 Blood Pressure Location Rt brachial Position Sitting Pulse 85 Pulse Source Pulse Oximeter Pulse Oximetry (%) 97 Oxygen Delivery Method Room Air Intake Visit Reasons: 9 month follow up Allergies adhesive tape [ADHESIVE TAPE] Allergy (Intermediate, Verified 09/25/23 12:44) rednes from band-aids Medication List - Last Reconciled 09/25/23 by Kathleen Ray MD diltiazem HCl CD 120 mg PO DAILY gabapentin 300 mg PO BEDTIME naproxen 500 mg PO BID PRN 7 days oxycodone-acetaminophen 5-325 mg (Percocet) 1 tab PO TID PRN 7 days sertraline 150 mg (1.5 x 100 mg) PO DAILY Tobacco use date assessed: 09/25/23 Fall risk assessment: No Falls in past year Last assessed Fall Risk: 09/25/23 Dental Screening Dental Screen Date: 09/25/23 Did you have a dental visit in the last 12 months?: No Did you have a dental problem in the last 6 months where you did not have access to dental care?: Yes Was dental information given to patient?: Yes HPI 9 month follow up HPI Details Patient is 67-year-old female she came in today to for her regular follow-up appointment Patient continued to have pain both ears off and on On examination both ears are within normal limit, however patient does tell me that she clenches her teeth We talked about this nervous habit, I would recommend to be conscious about it and see if she can stop doing it. If ears her then she may take 1 a leave that might help her, clenching of teeth is irritating her temporomandibular joint on both sides. Patient was shown diagrams to explain Hemochromatosis induced cirrhosis managed by [facility]. She is having phlebotomy done every 4 weeks PAT stable with diltiazem 120 mg daily Blood pressure is stable Patient is on gabapentin 300 mg at night for pain management, patient has multiple joint osteoarthritis And Percocet as needed, 30 tablets sent patient is aware of side effects of constipation and controlled nature of medication BMI is elevated patient is trying to lose weight Anxiety: Patient is currently on sertraline 150 mg, she is stable at current dose She forgot to do labs again, patient says that she will go right now Follow-up 3 months [facility] Medical History 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, major, recurrent Rotator cuff impingement syndrome of right shoulder Osteoarthritis History of PAT (paroxysmal atrial tachycardia) Hemochromatosis Surgical History Hx of hemorrhoidectomy Hx of cholecystectomy History of excision of lesion (08/16/14) History of partial hysterectomy (~2009) Hx of toe surgery (~1995) Hx of colonoscopy (10/07/18) Hx of arthroplasty (10/09/16) Family History Father HTN (hypertension) Lung cancer Mother Osteoporosis Sister Hemochromatosis Paternal Grandfather Skin cancer Bone cancer Maternal Grandmother Breast cancer Other Mental health disorder Social History Household Members: None Housing: Apartment Are you a primary healthcare technician to a significant other at home: No Do you presently have visiting nurse or other home services: No Alcohol intake: current Alcohol intake frequency: a few times a month Alcohol type: wine Patient Tobacco Use Status: Former Tobacco user Quit Date: age 44 Tobacco use type: Cigarette Cigarette Packs Per Day: 2 Cigarettes Per Day: 40.0 Years Smoked: 29 e-Cigarette/Vaping Use: Never Used Advance Directives Date on File: 10/08/16 service: No Current occupational status: retired and disabled Current occupation: right handed Cognitive needs: No Hearing needs: No Vision needs: Yes Questionnaire PHQ-9 Over the last 2 weeks, how often have you been bothered by any of the following problems? 1. Little interest or pleasure in doing things: not at all 2. Feeling down, depressed, or hopeless: not at all 3. Trouble falling or staying asleep, or sleeping too much: not at all 4. Feeling tired or having little energy: not at all 5. Poor appetite or overeating: not at all 6. Feeling bad about yourself - or that you are a failure or have let yourself or your family down: not at all 7. Trouble concentrating on things, such as reading the newspaper or watching television: not at all 8. Moving or speaking so slowly that other people could have noticed. Or the opposite - being so fidgety or restless that you have been moving around a lot more than usual: not at all 9. Thoughts that you would be better off or of hurting yourself in some way: not at all Total score: 0 Depression Screening Interpretation: Negative Depression Screening Done: Yes 76909 - PHQ-9 Billing: Yes Source: Developed by Drs. Aidan Benson, Claudia Unger, Fermín Mei and colleagues, with an educational nikhil from [employer]. Thrive Questionnaire Date Thrive assessed: 09/25/23 I am a: Patient What is your living situation today?: I have a steady place to live Within the past 12 months, did the food you bought not last and you didn't have the money to get more?: Never true Within the past 12 months, did you worry whether your food would run out before you got money to buy more?: Never true Do you have trouble paying for medicines?: No Do you have trouble getting transportation to medical appointments?: No Do you have trouble paying your heating and electricity bill?: No Do you have trouble taking care of your child, family member or friend?: No Do you have trouble with day-to-day activities such as bathing, preparing meals, shopping, managing finances, etc.?: No Are you currently unemployed and looking for a job?: No Are you interested in more education?: No Please select the resources that you would like help with: None THRIVE Score: 0 AUDIT C Alcohol Use Questionnaire (AUDIT-C) 1. How often do you have a drink containing alcohol?: Monthly or less 2. How many drinks containing alcohol do you have on a typical day when you are drinking?: 1 or 2 3. How often do you have six or more drinks on one occasion?: Never Total Score: 1 BUZZ-7 AMB Questionnaire BUZZ-7 Date BUZZ - 7 assessed: 09/25/23 Feeling nervous, anxious, or on edge: 0 = Not at all Not being able to stop or control worryin = Not at all Worrying too much about different things: 0 = Not at all Trouble relaxin = Not at all Being so restless that it is hard to sit still: 0 = Not at all Becoming easily annoyed or irritable: 0 = Not at all Feeling afraid as if something awful might happen: 0 = Not at all Total BUZZ-7 score (0-4 normal; 5-9 mild; 10-14 moderate; 15-21 severe): 0 Source: Developed by Drs. Aidan Benson, Claudia Unger, Fermín Mei and colleagues, with an educational nikhil from [employer]. Review of Systems Const Denies chills and Denies fever(s) ENT Denies epistaxis and Denies nasal discharge Card Denies chest pain Resp Denies chest congestion, Denies cough and Denies hemoptysis GI Denies diarrhea and Denies nausea Skin/Breast Denies rash Neuro Reports no additional complaints Psych Reports no additional complaints Endo Reports no additional complaints Physical exam (Primary Care) Vital Signs: Last Vital Signs Pulse 85 09/25/23 12:43 BP 122/76 09/25/23 12:43 Pulse Ox 97 09/25/23 12:43 Oxygen Delivery Method Room Air 09/25/23 12:43 BMI result Body Mass Index 32.7 Tobacco/Smoking Status: Tobacco use Status Tobacco use date assessed 09/25/23 09/25/23 12:48 Patient Tobacco Use Status Former Tobacco user 09/25/23 12:48 Tobacco use type Cigarette 09/25/23 12:48 e-Cigarette/Vaping Use Never Used 09/25/23 12:48 PHQ-9: PHQ-9 Score PHQ-9: Total score 0 09/25/23 13:53 Depression Screening Interpretation: Negative Thrive Assessment: Date of Thrive Assessment Date Thrive assessed 09/25/23 09/25/23 13:12 Const General: cooperative, comfortable and no acute distress Orientation/consciousness: patient oriented x3 HENMT Head: Yes normocephalic Eyes General: appearance normal, both eyes and all related structures Neck Neck: Yes supple Resp Effort & Inspection: normal respiratory effort, no cough and no stridor Cardio Rhythm: regular rhythm Heart sounds: S1 normal heart sound present and S2 normal heart sound present Skin General skin exam: turgor normal Neuro General: patient oriented x3, tone normal and moves all extremities Extrem Right lower extremity: no edema Left lower extremity: no edema Assessment and Plan Assessment & Plan (1) Diabetes mellitus type 2 in obese: Code(s): E11.69 - Type 2 diabetes mellitus with other specified complication; E66.9 - Obesity, unspecified (2) Depression, major, recurrent: Code(s): F33.9 - Major depressive disorder, recurrent, unspecified Qualifiers: Active/Remission status: in partial remission Qualified Code(s): F33.41 - Major depressive disorder, recurrent, in partial remission (3) Hemochromatosis: Comment: hx therapeutic phlebotomies-last was end of July 2022 Code(s): E83.119 - Hemochromatosis, unspecified Qualifiers: Hemochromatosis type: hereditary Qualified Code(s): E83.110 - Hereditary hemochromatosis (4) Obesity due to excess calories: Code(s): E66.09 - Other obesity due to excess calories Qualifiers: Body mass index: BMI 32.0-32.9 Obesity classification: adult class 1 (BMI 30 - 34.9) Serious obesity comorbidity presence: with serious comorbidity Qualified Code(s): E66.09 - Other obesity due to excess calories; Z68.32 - Body mass index [BMI] 32.0-32.9, adult (5) Anxiety, generalized: Code(s): F41.1 - Generalized anxiety disorder (6) PAT (paroxysmal atrial tachycardia): Code(s): I47.1 - Supraventricular tachycardia (7) Osteoarthritis: Code(s): M19.90 - Unspecified osteoarthritis, unspecified site Qualifiers: Osteoarthritis location: multiple joints Osteoarthritis type: primary Qualified Code(s): M15.9 - Polyosteoarthritis, unspecified (8) Teeth clenching: Code(s): R19.8 - Other specified symptoms and signs involving the digestive system and abdomen Plan atient is 67-year-old female she came in today to for her regular follow-up appointment Patient continued to have pain both ears off and on On examination both ears are within normal limit, however patient does tell me that she clenches her teeth We talked about this nervous habit, I would recommend to be conscious about it and see if she can stop doing it. If ears her then she may take 1 a leave that might help her, clenching of teeth is irritating her temporomandibular joint on both sides. Patient was shown diagrams to explain Hemochromatosis induced cirrhosis managed by [facility]. She is having phlebotomy done every 4 weeks PAT stable with diltiazem 120 mg daily Blood pressure is stable Patient is diet-controlled diabetic Patient is on gabapentin 300 mg at night for pain management, patient has multiple joint osteoarthritis And Percocet as needed, 30 tablets sent patient is aware of side effects of constipation and controlled nature of medication BMI is elevated patient is trying to lose weight Anxiety: Patient is currently on sertraline 150 mg, she is stable at current dose She forgot to do labs again, patient says that she will go right now Follow-up 3 months Medications: Changed From oxycodone-acetaminophen 5-325 mg (Percocet) Partial Fill upon patient request. 1 tab PO TID 7 days PRN 20 tabs 0RF pain To oxycodone-acetaminophen 5-325 mg (Percocet) Partial Fill upon patient request. 1 tab PO BID PRN 30 tabs 0RF pain 30 days Coding Level of Care Code Est Pt Level 4 (62243) Complex EM visit Add On G2211 Diagnoses Diabetes mellitus type 2 in obese E11.69; E66.9 Recurrent major depressive disorder, in partial remission F33.41 Active/Remission status: in partial remission Hereditary hemochromatosis E83.110 Hemochromatosis type: hereditary Class 1 obesity due to excess calories with serious comorbidity and body mass index (BMI) of 32.0 to 32.9 in adult E66.09; Z68.32 Body mass index: BMI 32.0-32.9 Obesity classification: adult class 1 (BMI 30 - 34.9) Serious obesity comorbidity presence: with serious comorbidity Anxiety, generalized F41.1 PAT (paroxysmal atrial tachycardia) I47.1 Primary osteoarthritis involving multiple joints M15.9 Osteoarthritis location: multiple joints Osteoarthritis type: primary Teeth clenching R19.8
== END 2023-09-25 13:45 | disposition home or self-care (01) ==
PROVIDERS: PCP Internal Medicine; Visit Provider Internal Medicine
DX: E11.69 Type 2 diabetes mellitus with other specified complication (principal); F33.41 Major depressive disorder, recurrent, in partial remission; E83.110 Hereditary hemochromatosis; E66.9 Obesity, unspecified; Z68.32 Body mass index [BMI] 32.0-32.9, adult; E66.09 Other obesity due to excess calories; F41.1 Generalized anxiety disorder; I47.10 Supraventricular tachycardia, unspecified; M15.9 Polyosteoarthritis, unspecified; R19.8 Other specified symptoms and signs involving the digestive system and abdomen
CPT/HCPCS: 99214; G2211

== ENCOUNTER 2023-09-25 13:09 | Outpatient (REF) | payer MEDICARE, SELFPAY ==
[2023-09-25 16:09] LABS: MANUAL DIFF FLAG NO
[2023-09-25 16:21] LABS: Basophils Percent Auto 0.7 % (0-2); Eosinophils Absolute Auto 0.1 X10*3/uL (0.0-0.4); Eosinophils Percent Auto 1.6 % (0-4); Hematocrit 39.7 % (37.0-47.0); Hemoglobin 13.3 g/dl (12.0-16.0); Imm Gran Abs Auto 0.02 X10*3/uL (0.00-0.03); Imm Gran Pct Auto 0.5 % (0.0-0.4); Lymphocytes Absolute Auto 1.5 X10*3/uL (1.2-4.9); Lymphocytes Percent Auto 33.9 % (20-40); Mean Corpuscular HGB Conc 33.5 g/dl (31.0-35.0); Mean Corpuscular Hemoglobin 32.5 pg (27.0-33.0); Mean Corpuscular Volume 97.1 fL (80.0-98.0); Mean Platelet Volume 11.2 fL (9.4-12.3); Monocytes Absolute Auto 0.5 X10*3/uL (0.1-1.2); Monocytes Percent Auto 11.6 % (2-11); Neutrophils Absolute Auto 2.3 x10*3/uL (2.0-8.3); Neutrophils Percent Auto 51.7 % (45-73); Platelet Count 180 X10*3/uL (160-400); Red Blood Count 4.09 X10*6/uL (4.20-5.50); Red Cell Distribution Width 13.9 % (11.0-16.0); White Blood Count 4.4 X10*3/uL (4.8-10.8)
[2023-09-25 16:59] LABS: Creatinine Urine 176.91 mg/dL; Microalbum/Creatinine Ratio Ur 16.9 ug/mg cr (<30)
[2023-09-25 17:07] LABS: Alanine Aminotransferase 38 U/L (0-31); Albumin Level 4.4 g/dL (3.5-5.0); Alkaline Phosphatase 64 U/L (39-117); Anion Gap 15 (12-20); Aspartate Amino Transferase 47 U/L (5-31); Bilirubin Total 0.5 mg/dL (0.0-1.0); Blood Urea Nitrogen 10 mg/dL (9-16); Carbon Dioxide 25 mmol/L (22-29); Chloride 104 mmol/L (96-108); Estimated Glomerular Filt Rate > 60; Glucose Random 93 mg/dL (60-115); Potassium 4.5 mmol/L (3.3-5.1); Sodium 139 mmol/L (135-145); Total Protein 7.7 g/dL (6.5-8.0)
[2023-09-25 17:08] LABS: Ferritin 42 ng/mL (10-250)
[2023-09-25 17:20] LABS: Estimated Average Glucose 108 mg/dL; Hemoglobin A1c % 5.4 % (<6.0)
[2023-09-27 08:58] LABS: LDL Cholesterol Direct 137 mg/dL (<100)
== END 2023-09-25 13:10 | disposition home or self-care (01) ==
LOC: HO.HMGCLDS 13:09
PROVIDERS: PCP Internal Medicine; Visit Provider Internal Medicine
DX: F33.9 Major depressive disorder, recurrent, unspecified (principal); E83.119 Hemochromatosis, unspecified; E66.09 Other obesity due to excess calories; F41.1 Generalized anxiety disorder; R52 Pain, unspecified; I47.10 Supraventricular tachycardia, unspecified; E11.69 Type 2 diabetes mellitus with other specified complication; Z68.32 Body mass index [BMI] 32.0-32.9, adult
CPT/HCPCS: 36415; 80053; 82043; 82570; 82728; 83036; 83721; 85025

== ENCOUNTER 2023-10-10 12:57 | Outpatient (REF) | payer MEDICARE, SELFPAY | END 2023-10-10 12:58 | disposition home or self-care (01) | LOC: HO.BBR 12:57 | PROVIDERS: PCP Internal Medicine; Visit Provider Internal Medicine Gastroenterology | DX: Z13.89 Encounter for screening for other disorder (principal) ==

== ENCOUNTER 2023-12-16 13:04 | Outpatient (REF) | payer MEDICARE, SELFPAY | END 2023-12-16 13:05 | disposition home or self-care (01) | LOC: HO.BBR 13:04 | PROVIDERS: PCP Internal Medicine; Visit Provider Internal Medicine Gastroenterology | DX: Z13.89 Encounter for screening for other disorder (principal) ==

== ENCOUNTER 2024-02-10 12:58 | Outpatient (REF) | payer MEDICARE, SELFPAY | END 2024-02-10 12:59 | disposition home or self-care (01) | LOC: HO.BBR 12:58 | PROVIDERS: PCP Internal Medicine; Visit Provider Internal Medicine Gastroenterology | DX: Z13.89 Encounter for screening for other disorder (principal) ==

== ENCOUNTER 2024-03-19 13:03 | Outpatient (REF) | payer MEDICARE, SELFPAY | END 2024-03-19 13:04 | disposition home or self-care (01) | LOC: HO.BBR 13:03 | PROVIDERS: PCP Internal Medicine; Visit Provider Internal Medicine Gastroenterology | DX: Z13.89 Encounter for screening for other disorder (principal) ==

== ENCOUNTER 2024-05-05 13:58 | Outpatient (REF) | payer MEDICARE, SELFPAY | END 2024-05-05 13:59 | disposition home or self-care (01) | LOC: HO.BBR 13:58 | PROVIDERS: PCP Internal Medicine; Visit Provider Internal Medicine Gastroenterology | DX: Z13.89 Encounter for screening for other disorder (principal) ==

== ENCOUNTER 2024-05-29 11:40 | Outpatient (AMB) | payer MEDICARE, SELFPAY ==
[2024-05-29 11:50] VITALS: BP 126/82; PULSE 76; O2SAT 96; BMI 33.2
--- NOTE | 2024-05-29 11:50 | A.OFFVIS_ITS ---
Intake Vital Signs 05/29/24 11:50 Height 5 ft 8 in Weight 218 lb 6 oz BMI 33.2 BP 126/82 Blood Pressure Location Lt brachial Position Sitting Pulse 76 Pulse Source Pulse Oximeter Pulse Oximetry (%) 96 Oxygen Delivery Method Room Air Intake Visit Reasons: SWV [id number] Allergies adhesive tape [ADHESIVE TAPE] Allergy (Intermediate, Verified 05/29/24 11:50) rednes from band-aids Medication List - Last Reconciled 05/29/24 by Kathleen Ray MD diltiazem HCl CD 120 mg PO DAILY gabapentin 300 mg PO BEDTIME sertraline 150 mg (1.5 x 100 mg) PO DAILY Do you need a note to return to daycare/school/sports/work: No HPI V G0439 HPI Details Health Maintenance - Discussed the importance of scheduling and completing the overdue mammogram. - Planned for scheduling a colonoscopy w [facility] assistant manager airside operations. - Emphasized the significance of complet ing laboratory tests in fasting state at the time of the scheduled phlebotomy appointment. Assessment and Plan 68-year-old female with a history hypert ension, paroxysmal atrial fibrillation, anxiety, chronic pain in her leg managed with gabapentin 300 mg at night. She was previously unwell with flu-like symptoms which caused a delay in her regular appointments. The patient has been advised on the necessity of completing her overdue mammogram and colonoscopy screenings. She acknowledges the absence of regular follow-up with her assistant manager airside operations for the colonoscopy. The discussion also included her plan to complete the pending fasting lab tests when she attends her phlebotomy appointment. 1. Continue medications for anxiety pain management and blood pressure control 2. Need For Mammogram Screening Advised on the imperative nature of overdue mammogram screening. Also due for bone density and colonoscopy 3. History of hemochromatosis affecting liver managed by [facility]. Osorio, [employer] Medication refills sent Follow-up 3 months HPI Comments History of Present Illness Details AWV Medical/social history reviewed Past medical history reviewed [facility] / care team list updated Surgical/ hospitalization history reviewed Current medications including OTC and supplements reviewed Family history reviewed Tobacco controlled form updated Alcohol use form updated Illicit drug use in social history reviewed Current diagnosis of depression ?screening updated Appropriate PHQ 2/PHQ-9 completed . Vital signs reviewed Alcohol tobacco drug use reviewed and discussed . MMSE completed . ? Fall risk: ?Assessed Fall history: ?None Have you had any falls with injury in the past year?? No Have you had 2 or more falls in the past year?? No Fall risk assessment completed Home safety discussed with the patient Functional ability assessed and discussed and documented Activities of daily living reviewed and appropriate actions taken . HRA filled out by the patient and reviewed by provider and scanned . Appropriate written screening schedule established . Any health advise needed provided . Advance care planning discussed with the patient , necessary paperwork filled Examination IPPE/AWE: Balance intact Romberg intact Tandem walk failed walk-in turn intact rise from sit to stand intact . ?Hearing ?whisper test pass . Medication list reviewed, patient is stable on medications All other providers patient is seeing discussed and noted . [facility] Medical History 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, major, recurrent Rotator cuff impingement syndrome of right shoulder Osteoarthritis History of PAT (paroxysmal atrial tachycardia) Hemochromatosis Surgical History Hx of hemorrhoidectomy Hx of cholecystectomy History of excision of lesion (08/16/14) History of partial hysterectomy (~2009) Hx of toe surgery (~1995) Hx of colonoscopy (10/07/18) Hx of arthroplasty (10/09/16) Family History Father HTN (hypertension) Lung cancer Mother Osteoporosis Sister Hemochromatosis Paternal Grandfather Skin cancer Bone cancer Maternal Grandmother Breast cancer Other Mental health disorder Social History Household Members: None Housing: Apartment Are you a primary lawn care specialist to a significant other at home: No Do you presently have visiting nurse or other home services: No Alcohol intake: current Alcohol intake frequency: a few times a month Alcohol type: wine Patient Tobacco Use Status: Former Tobacco user Tobacco use type: Cigarette Cigarette Packs Per Day: 2 Cigarettes Per Day: 40.0 Years Smoked: 29 e-Cigarette/Vaping Use: Never Used Advance Directives Date on File: 10/08/16 service: No Current occupational status: retired and disabled Current occupation: right handed Cognitive needs: No Hearing needs: No Vision needs: Yes Questionnaire Medicare Wellness Checkup [age] 65-71 What gender do you identify with?: female During the past 4 weeks, how much have you been bothered by emotional problems such as feeling anxious, depressed, irritable, sad or downhearted, and blue?: slightly During the past 4 weeks, has your physical & emotional health limited your social activities with family, friends, neighbors, or groups?: not at all During the past 4 weeks, how much bodily pain have you generally had?: mild pain During the past 4 weeks, was someone available to help you if you needed & wanted help?: yes, quite a bit During the past 4 weeks, what was the hardest physical activity you could do for at least 2 minutes?: moderate Can you get to places out of walking distance without help? (For eg., can you travel alone on buses, taxis or drive your car?): Yes Can you go shopping for groceries or clothes without someone's help?: Yes Can you prepare your own meals?: Yes Can you do your housework without help?: Yes Because of any health problems, do you need the help of another person with your personal care needs such as eating, bathing, dressing or getting around the house?: No Can you handle your own money without help?: Yes During the past 4 weeks, how would you rate your health in general?: very good During the past 4 weeks how have things been going for you?: pretty well Are you having difficulties driving your car?: no Do you always fasten your seat belt when you are in a car?: yes, usually During past 4 weeks, have you been bothered by the following: never: Falling or dizzy when standing up, Sexual problems?, Trouble eating well?, Teeth or denture problems?, Problems using the telephone? and Tiredness or fatigue? Have you fallen 2 or more times in the past year?: No Are you afraid of falling?: No Are you a smoker?: no During the past 4 weeks, how many drinks of wine, beer, or other alcoholic beverages did you have?: 2-5 drinks per week Do you exercise for about 20 minutes 3 or more times a week?: no, I usually do not exercise this much Have you been given information to help with the following?: no: Hazards in your house that might hurt you? How often do you have trouble taking medicines the way you have been told to take them?: I always take medicine as prescribed How confident are you that you can control & manage most of your health problems?: very confident What is your race?: White Mini Mental State Exam (MMSE) Orientation What is the (year) (season) (date) (day) (month)?: year, season, date, day and month Where are we (state) (county) (town or city) (hospital) (floor)?: state, county, town or city, hospital/clinic and floor Score Score: 10 Activity of Daily Living Bathing - sponge bath, tub bath or shower: receives no assistance (gets in/out by self, if usual bathing means Dressing - getting clothes from closets & drawers, including inner/outer garments & fasteners.: gets clothes & gets completely dressed without help Toileting - going to the 'toilet room' for urine/bowel elimination & cleaning self/arranging clothes: goes to toilet room, cleans self, arranges clothes without help Transfer: moves in & out of bed and chair without help (may use support object) Continence: controls urination/bowel movements completely by self Feeding: feeds self without help Total Score: 0 Information obtained from: patient Using telephone: independent Traveling: independent Shopping: independent Preparing meals: independent Housework: independent Taking medicine: independent Managing money: independent PHQ-9 Over the last 2 weeks, how often have you been bothered by any of the following problems? 1. Little interest or pleasure in doing things: not at all 2. Feeling down, depressed, or hopeless: not at all 3. Trouble falling or staying asleep, or sleeping too much: not at all 4. Feeling tired or having little energy: not at all 5. Poor appetite or overeating: not at all 6. Feeling bad about yourself - or that you are a failure or have let yourself or your family down: not at all 7. Trouble concentrating on things, such as reading the newspaper or watching television: not at all 8. Moving or speaking so slowly that other people could have noticed. Or the opposite - being so fidgety or restless that you have been moving around a lot more than usual: not at all 9. Thoughts that you would be better off or of hurting yourself in some way: not at all Total score: 0 Depression Screening Interpretation: Negative Depression Screening Done: Yes 02150 - PHQ-9 Billing: Yes Source: Developed by Drs. Aidan Benson, Claudia Unger, Fermín Mei and colleagues, with an educational nikhil from [employer]. Review of Systems Const Denies chills and Denies fever(s) ENT Denies epistaxis and Denies nasal discharge Card Denies chest pain Resp Denies chest congestion, Denies cough and Denies hemoptysis GI Denies diarrhea and Denies nausea Skin/Breast Denies rash Neuro Reports no additional complaints Psych Reports no additional complaints Endo Reports no additional complaints Physical Exam Vital Signs: Last Vital Signs Pulse 76 05/29/24 11:50 BP 126/82 05/29/24 11:50 Pulse Ox 96 05/29/24 11:50 Oxygen Delivery Method Room Air 05/29/24 11:50 BMI result Body Mass Index 33.2 Const General: cooperative, comfortable and no acute distress Orientation/consciousness: patient oriented x3 HEENT Head: Yes normocephalic Eyes General: appearance normal, both eyes and all related structures Neck Other: Supple Neck: Yes supple Resp Effort & Inspection: normal respiratory effort, no cough and no stridor Cardio Rhythm: regular rhythm Heart sounds: S1 normal heart sound present and S2 normal heart sound present Skin General skin exam: turgor normal Neuro Other: Motor sensory intact General: patient oriented x3, tone normal and moves all extremities Extrem Other: No lower extremity swelling. Right lower extremity: no edema Left lower extremity: no edema Psych Other: Normal effect, speech clear Assessment & Plan Assessment & Plan (1) Medicare annual wellness visit, subsequent: Code(s): Z00.00 - Encounter for general adult medical examination without abnormal findings (2) Colon cancer screening: Code(s): Z12.11 - Encounter for screening for malignant neoplasm of colon (3) Hemochromatosis: Comment: hx therapeutic phlebotomies-last was end of July 2022 Code(s): E83.119 - Hemochromatosis, unspecified Qualifiers: Hemochromatosis type: hereditary Qualified Code(s): E83.110 - Hereditary hemochromatosis (4) Osteoarthritis: Code(s): M19.90 - Unspecified osteoarthritis, unspecified site Qualifiers: Osteoarthritis location: multiple joints Osteoarthritis type: primary Qualified Code(s): M15.9 - Polyosteoarthritis, unspecified (5) Depression, major, recurrent: Code(s): F33.9 - Major depressive disorder, recurrent, unspecified Qualifiers: Active/Remission status: in partial remission Qualified Code(s): F33.41 - Major depressive disorder, recurrent, in partial remission (6) PAT (paroxysmal atrial tachycardia): Code(s): I47.1 - Supraventricular tachycardia (7) Cirrhosis due to hemochromatosis: Comment: Laboratory Tests WBC 5.0 RBC 4.34 Hgb 14.5 Hct 43.2 MCV 99.5 H MCH 33.4 H Plt Count 177 Estimated GFR Hemoglobin A1c % 5.6 GGT 217 H 12/20/20 Estimated GFR > 60 Hemoglobin A1c % Total Bilirubin 0.6 Direct Bilirubin 0.3 AST 40 H ALT 40 H Alkaline Phosphatase 72 ferritin was not obtained * CT ABD AND PELVIS 07/04/20? FINDINGS: LUNG BASES: There is a 2 mm right lower lobe nodule axial image 9 series 7. LIVER, GALLBLADDER, AND BILIARY TREE: The liver is enlarged, right lobe measuring 21 cm in length. The left lobe and caudate lobe appears prominent as well. The contour of the liver is slightly nodular suggestive of mild cirrhosis. No focal liver lesion is seen. The gallbladder has been removed. There is no biliary duct dilatation. PANCREAS: Unremarkable? SPLEEN: Unremarkable? ADRENAL GLANDS: Unremarkable? KIDNEYS AND URETERS: The kidneys are normal in size, shape, and attenuation. No hydronephrosis, hydroureter, or calculi seen. No perinephric stranding.? BLADDER: Not optimally distended. GASTROINTESTINAL TRACT: The small and large bowel are unremarkable. The appendix is not identified. ABDOMINAL WALL: There are umbilical and ventral hernias containing fat. LYMPH NODES: Normal VASCULAR: Unremarkable PELVIC VISCERA: The uterus appears to have been removed. No pelvic mass is seen. OSSEOUS STRUCTURES: There are degenerative changes of the spine and hip joints.? CT/CT abdomen pelvis wo/w con IMPRESSION: Slightly nodular contour of the liver suggestive of mild cirrhosis. No focal liver lesion is seen. Post cholecystectomy. No biliary duct dilatation. Small umbilical and ventral hernias containing fat. Code(s): E83.10 - Disorder of iron metabolism, unspecified (8) Anxiety, generalized: Code(s): F41.1 - Generalized anxiety disorder (9) Obesity due to excess calories: Code(s): E66.09 - Other obesity due to excess calories Qualifiers: Body mass index: BMI 32.0-32.9 Obesity classification: adult class 1 (BMI 30 - 34.9) Serious obesity comorbidity presence: with serious comorbidity Qualified Code(s): E66.09 - Other obesity due to excess calories; Z68.32 - Body mass index [BMI] 32.0-32.9, adult (10) Menopause: Code(s): Z78.0 - Asymptomatic menopausal state Plan Health Maintenance - Discussed the importance of scheduling and completing the overdue mammogram. - Planned for scheduling a colonoscopy with assistant manager airside operations. - Emphasized the significance of completing laboratory tests in fasting state at the time of the scheduled phlebotomy appointment. Assessment and Plan 68-year-old female with a history hypertension, paroxysmal atrial fibrillation, anxiety, chronic pain in her leg managed with gabapentin 300 mg at night. She was previously unwell with flu-like symptoms which caused a delay in her regular appointments. The patient has been advised on the necessity of completing her overdue mammogram and colonoscopy screenings. She acknowledges the absence of regular follow-up with her assistant manager airside operations for the colonoscopy. The discussion also included her plan to complete the pending fasting lab tests when she attends her phlebotomy appointment. 1. Continue medications for anxiety pain management and blood pressure control 2. Need For Mammogram Screening Advised on the imperative nature of overdue mammogram screening. Also due for bone density and colonoscopy 3. History of hemochromatosis affecting liver managed by [facility]. Osorio, [employer] Medication refills sent Follow-up 3 months Orders: Orders MM tomosynthesis screening BI Today Z12.31 - Encounter for screening mammogram for malignant neoplasm of breast Complete Blood Count Auto Diff Today E66.09 - Other obesity due to excess calories, E83.10 - Disorder of iron metabolism, unspecified, E83.110 - Hereditary hemochromatosis, F33.41 - Major depressive disorder, recurrent, in partial remission, F41.1 - Generalized anxiety disorder, I47.1 - Supraventricular tachycardia, M15.9 - Polyosteoarthritis, unspecified, Z68.32 - Body mass index [BMI] 32.0-32.9, adult Comprehensive Pax. Panel Fast Today E66.09 - Other obesity due to excess calories, E83.10 - Disorder of iron metabolism, unspecified, E83.110 - Hereditary hemochromatosis, F33.41 - Major depressive disorder, recurrent, in partial remission, F41.1 - Generalized anxiety disorder, I47.1 - Supraventricular tachycardia, M15.9 - Polyosteoarthritis, unspecified, Z68.32 - Body mass index [BMI] 32.0-32.9, adult Lipid Panel Today E66.09 - Other obesity due to excess calories, E83.10 - Disorder of iron metabolism, unspecified, E83.110 - Hereditary hemochromatosis, F33.41 - Major depressive disorder, recurrent, in partial remission, F41.1 - Generalized anxiety disorder, I47.1 - Supraventricular tachycardia, M15.9 - Polyosteoarthritis, unspecified, Z68.32 - Body mass index [BMI] 32.0-32.9, adult XR DEXA axial skeleton Today Z78.0 - Asymptomatic menopausal state Vitamin D 25-OH (D2 and D3) Today E66.09 - Other obesity due to excess calories, E83.10 - Disorder of iron metabolism, unspecified, E83.110 - Hereditary hemochromatosis, F33.41 - Major depressive disorder, recurrent, in partial remission, F41.1 - Generalized anxiety disorder, I47.1 - Supraventricular tachycardia, M15.9 - Polyosteoarthritis, unspecified, Z68.32 - Body mass index [BMI] 32.0-32.9, adult Ferritin Today E66.09 - Other obesity due to excess calories, E83.10 - Disorder of iron metabolism, unspecified, E83.110 - Hereditary hemochromatosis, F33.41 - Major depressive disorder, recurrent, in partial remission, F41.1 - Generalized anxiety disorder, I47.1 - Supraventricular tachycardia, M15.9 - Polyosteoarthritis, unspecified, Z68.32 - Body mass index [BMI] 32.0-32.9, adult Referrals Gastroenterology Referral Z12.11 - Encounter for screening for malignant neoplasm of colon Medications: Changed From sertraline 150 mg (1.5 x 100 mg) PO DAILY 90 tabs 0RF To sertraline 150 mg (1.5 x 100 mg) PO DAILY 90 days 135 tabs 0RF Refilled diltiazem HCl CD 120 mg PO DAILY 90 caps 0RF gabapentin 300 mg PO BEDTIME 90 caps 0RF sertraline 150 mg (1.5 x 100 mg) PO DAILY 90 tabs 0RF Quality Reporting (2019) Depression/Bipolar (159/160/161/177) PHQ-9: Total score: 0 Coding Level of Care Code Medicare Subsequent (G0439) Est Pt Level 4 (09021) Diagnoses Medicare annual wellness visit, subsequent Z00.00 Colon cancer screening Z12.11 Hereditary hemochromatosis E83.110 Hemochromatosis type: hereditary Primary osteoarthritis involving multiple joints M15.9 Osteoarthritis location: multiple joints Osteoarthritis type: primary Recurrent major depressive disorder, in partial remission F33.41 Active/Remission status: in partial remission PAT (paroxysmal atrial tachycardia) I47.1 Cirrhosis due to hemochromatosis E83.10 Anxiety, generalized F41.1 Class 1 obesity due to excess calories with serious comorbidity and body mass index (BMI) of 32.0 to 32.9 in adult E66.09; Z68.32 Body mass index: BMI 32.0-32.9 Obesity classification: adult class 1 (BMI 30 - 34.9) Serious obesity comorbidity presence: with serious comorbidity Menopause Z78.0 CPT Codes Advance Care Planning - Time spent: 1-15 minutes, not on file ([id number]) Additional Codes PHQ-9 - 38697 - PHQ-9 Billing: Yes ([id number]) Advance Care Planning Forms completed: MOLST Time spent: 1-15 minutes, not on file
== END 2024-05-29 12:11 | disposition home or self-care (01) ==
PROVIDERS: PCP Internal Medicine; Visit Provider Internal Medicine
DX: Z00.00 Encounter for general adult medical examination without abnormal findings (principal); E83.110 Hereditary hemochromatosis; F33.41 Major depressive disorder, recurrent, in partial remission; I47.10 Supraventricular tachycardia, unspecified; Z12.11 Encounter for screening for malignant neoplasm of colon; M15.9 Polyosteoarthritis, unspecified; E83.10 Disorder of iron metabolism, unspecified; F41.1 Generalized anxiety disorder; E66.09 Other obesity due to excess calories; Z68.32 Body mass index [BMI] 32.0-32.9, adult; Z78.0 Asymptomatic menopausal state

== ENCOUNTER → 2024-05-29 11:40 | Outpatient (BNVA) | payer MEDICARE, SELFPAY | PROVIDERS: PCP Internal Medicine; Visit Provider Internal Medicine | DX: Z00.00 Encounter for general adult medical examination without abnormal findings (principal); I10 Essential (primary) hypertension; I48.0 Paroxysmal atrial fibrillation; F41.9 Anxiety disorder, unspecified; G89.29 Other chronic pain; E83.110 Hereditary hemochromatosis; M15.9 Polyosteoarthritis, unspecified; F33.41 Major depressive disorder, recurrent, in partial remission; I47.19 Other supraventricular tachycardia; K74.60 Unspecified cirrhosis of liver; E83.119 Hemochromatosis, unspecified; E83.10 Disorder of iron metabolism, unspecified; F41.1 Generalized anxiety disorder; E66.09 Other obesity due to excess calories; Z68.32 Body mass index [BMI] 32.0-32.9, adult; Z78.0 Asymptomatic menopausal state; Z79.899 Other long term (current) drug therapy | CPT/HCPCS: 96127; 99212 ==

== ENCOUNTER 2024-06-02 13:48 | Outpatient (REF) | payer MEDICARE, SELFPAY | END 2024-06-02 13:49 | disposition home or self-care (01) | LOC: HO.BBR 13:48 | PROVIDERS: PCP Internal Medicine; Visit Provider Internal Medicine Gastroenterology | DX: Z13.89 Encounter for screening for other disorder (principal) ==

== ENCOUNTER 2024-07-22 12:36 | Outpatient (REF) | payer MEDICARE, SELFPAY ==
--- NOTE | ~2024-07-22 | MM_ITS ---
EXAMINATION: MM DIAGNOSTIC DIGITAL BREAST TOMOSYNTHESIS, BILATERAL Limited bilateral ultrasound. CLINICAL INFORMATION: Left breast mass. COMPARISON: Mammography: Comparison is made with relevant prior exams. TECHNIQUE: Digital breast mammography with tomosynthesis is performed in both the craniocaudal and mediolateral oblique views along with computer-aided detection (CAD). Limited bilateral breast ultrasound. FINDINGS: There are scattered areas of fibroglandular density (ACR BI-RADS breast composition Category b). Left: There is a spiculated mass in the central outer breast posterior depth with a adjacent focal asymmetry. No suspicious calcifications or other abnormal findings. Targeted color Doppler ultrasound demonstrates a solid irregular mass at 4:00 7 cm from the nipple measuring 13 x 22 x 15 mm which correlates with the spiculated mass. Targeted color Doppler ultrasound in the left axilla demonstrates a slightly prominent axillary lymph node with thickened cortex measuring up to 4 mm. Right: Superficial oval mass in the lower right axilla with increased coarse calcifications localizes to the skin. No suspicious masses other calcifications or other abnormal findings. Targeted color Doppler ultrasound scanning in the right axilla demonstrates a superficial dermal/subcutaneous oval mass measuring 7 x 7 x 3 mm this area correlates with the oval mass with calcifications on mammography has increased in size and increased calcifications compared with priors. Results are provided to the patient at time of visit by the technologist. MM/MM tomosynthesis diagnostic BI IMPRESSION: Left: 1. Solid irregular mass in the left breast at 4:00. Recommend histology with ultrasound guided core needle biopsy at this time. 2. Slightly prominent axillary lymph node. Recommend ultrasound guided core needle biopsy at this time for confirmation. The findings and recommendations were discussed with the patient the procedure will be scheduled. Right: Superficial dermal/subdermal lesion in the right axilla with increased coarse calcifications and increased size from prior's recommend breast surgical consultation at this time and possible skin punch biopsy as it is located right underneath a blackhead on the skin. ASSESSMENT: BI-RADS BI-RADS 4 - Suspicious finding RECOMMENDATION: Biopsy recommended This patient's information was entered into a reminder system with a target due date for their next mammogram. Electronically signed by: Mavis Miguel DO 07/22/2024 01:58 PM [facility]
--- NOTE | ~2024-07-22 | MM_ITS ---
EXAMINATION: DXA BONE DENSITY AXIAL HISTORY: Estrogen deficiency TECHNIQUE: [employer] Dual energy absorptiometry (DEXA) of the lumbar spine, total left hip, and femoral neck was performed. COMPARISON: Comparison is made with the prior examination dated 02/22/2021. FINDINGS: The bone mineral density of the lumbar spine is 1.323 with a T-score of 1.2, and a Z-score of 1.8. This represents a BMD change of 0.0% compared to the prior exam. This is not statistically significant. The bone mineral density of the left total hip is 1.064 with a T-score of 0.4, and a Z-score of 1.0. This represents BMD change of 0.9% compared to the prior exam. This is not statistically significant. The bone mineral density of the left femoral neck is 1.014 with a T-score of -0.2, and a Z-score of 0.7. This represents BMD change of -0.6% compared to the prior exam. MM/XR DEXA axial skeleton IMPRESSION: Based on bone mineral density, and according to World Health Organization (WHO) criteria, the diagnosis is consistent with normal bone mineral density. All bone density values are in grams per centimeter squared (g/cm2). Statistically, 68% of repeat scans fall within 1 SD (+/- 0.010 g/cm2 for AP spine L1-L4) and 1 SD (+/- 0.012 g/cm2 for femur total) FRAX is a trademark of the [employer], a World Health Organization (WHO) Collaborating Center. Electronically signed by: Aidan Wheeler MD 07/22/2024 01:39 PM [facility]
== END 2024-07-22 12:37 | disposition home or self-care (01) ==
LOC: HO.MAMMO 12:36
PROVIDERS: PCP Internal Medicine; Visit Provider Internal Medicine
DX: N63.23 Unspecified lump in the left breast, lower outer quadrant (principal); Z13.820 Encounter for screening for osteoporosis; Z78.0 Asymptomatic menopausal state
CPT/HCPCS: 76642; 77062; 77066; 77080

== ENCOUNTER → 2024-07-22 13:00 | Outpatient (BNV) | payer MEDICARE, SELFPAY | PROVIDERS: PCP Internal Medicine; Visit Provider Radiology Diagnostic Radiology | DX: E28.39 Other primary ovarian failure (principal); N63.23 Unspecified lump in the left breast, lower outer quadrant; R92.1 Mammographic calcification found on diagnostic imaging of breast | CPT/HCPCS: 76642; 77066; G0279 ==

== ENCOUNTER 2024-07-28 13:07 | Outpatient (REF) | payer MEDICARE, SELFPAY | END 2024-07-28 13:08 | disposition home or self-care (01) | LOC: HO.BBR 13:07 | PROVIDERS: PCP Internal Medicine; Visit Provider Internal Medicine Gastroenterology | DX: Z13.89 Encounter for screening for other disorder (principal) ==

== ENCOUNTER 2024-08-11 14:03 | Outpatient (AMB) | payer MEDICARE, SELFPAY ==
--- NOTE | 2024-08-11 14:10 | A.OFFVIS_ITS ---
Vital Signs 3 08/11/24 14:20 Height 5 ft 9 in Weight 215 lb 4 oz BMI 31.8 BP 140/70 H Blood Pressure Location Lt brachial Position Sitting Pulse 76 Intake Visit Reasons: LT BR USBX FOR 4:00 MASS & AXILLA Intake Note: Patient is seen in office for ultrasound biopsy CONSULT left breast 4 o'clock mass & axilla. Pt c/o: does not feel any lump, no prior breast surgeries or infections, no fm history of breast cancer Bx sched:08/13/24 @ 8am Material Expeditor Required: No Family Law Legal Assistant: Family Law Legal Assistant Present Accompanied by: Self / Same As Patient Allergies adhesive tape [ADHESIVE TAPE] Allergy (Intermediate, Verified 08/11/24 14:19) rednes from band-aids HPI Comments Details: 68-year-old female patient presenting with a recent diagnostic mammogram performed on 07/22/2024 along with a left breast ultrasound which revealed a solid irregular mass in the left breast at the 04:00 o'clock location. In addition a slightly prominent left axillary lymph node was noted as well. Both were felt to be suspicious for malignancy and ultrasound-guided core biopsy recommended. She is scheduled for this procedure on 08/13/2024 at the [facility]. She denies a previous history of breast problems or breast surgery. Her family history is negative for breast or ovarian cancer. She denies any current symptoms in either breast. Her menarche was at age 16. She is with 2 adult daughters who both live in [place]. Her 1st child was born when she was 21 years old. She denied breast-feeding. She denies Ashkenazi Hoahaoism heritage. [facility] Medical History 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, major, recurrent Rotator cuff impingement syndrome of right shoulder Osteoarthritis History of PAT (paroxysmal atrial tachycardia) Hemochromatosis Surgical History Hx of hemorrhoidectomy Hx of cholecystectomy History of excision of lesion (08/16/14) History of partial hysterectomy (~2009) Hx of toe surgery (~1995) Hx of colonoscopy (10/07/18) Hx of arthroplasty (10/09/16) Family History Father HTN (hypertension) Lung cancer Mother Osteoporosis Sister Hemochromatosis Paternal Grandfather Skin cancer Bone cancer Maternal Grandmother Breast cancer Other Mental health disorder Social History Household Members: None Housing: Apartment Are you a primary nurse behavioral health care to a significant other at home: No Do you presently have visiting nurse or other home services: No Alcohol intake: current Alcohol intake frequency: a few times a month Alcohol type: wine Patient Tobacco Use Status: Former Tobacco user Tobacco use type: Cigarette Cigarette Packs Per Day: 2 Cigarettes Per Day: 40.0 Years Smoked: 29 e-Cigarette/Vaping Use: Never Used Advance Directives Date on File: 10/08/16 service: No Current occupational status: retired and disabled Current occupation: right handed Cognitive needs: No Hearing needs: No Vision needs: Yes Female Reproductive History Menstrual Age of Menarche: 16 Age of menopause: 52 Total pregnancies: 2 Number of Living Children: 2 Review of Systems Const All systems reviewed & are unremarkable except as noted in HPI and below Physical Exam Vital Signs: Last Vital Signs Pulse 76 08/11/24 14:20 BP 140/70 H 08/11/24 14:20 BMI result Body Mass Index 31.8 Const General: cooperative and no acute distress Nutritional Appearance: well nourished Orientation/consciousness: patient oriented x3 Limitations: no limitations HEENT Head: Yes normocephalic and Yes atraumatic Ears: hearing grossly normal bilaterally Chest Other: Left breast: No skin change, no nipple retraction, no nipple discharge, no enlarged lymph nodes, palpable breast mass noted in the 4 o'clock location, fairly superficial within the breast tissue, mobile and without overlying skin changes. Right breast: No skin change, no nipple retraction, no nipple discharge, no palpable mass, no enlarged lymph nodes Chest/axillae images: 2 1. Site of palpable nodule left breast 04:00 o'clock position Resp Effort & Inspection: normal respiratory effort, no audible wheezes, no cough and no respiratory distress Cardio Jugular venous distension: no JVD GI Inspection: Yes normal to inspection Skin Other: Warm, dry, no rash Neuro General: patient oriented x3 Extrem General: Yes no clubbing, cyanosis or edema Assessment & Plan Assessment & Plan (1) Left breast mass: Code(s): N63.20 - Unspecified lump in the left breast, unspecified quadrant Category: Medical (2) Abnormal mammogram of left breast: Code(s): R92.8 - Other abnormal and inconclusive findings on diagnostic imaging of breast Category: Medical (3) Abnormal ultrasound of breast: Code(s): R92.8 - Other abnormal and inconclusive findings on diagnostic imaging of breast Category: Medical Plan 68-year-old female patient presenting with a palpable mass in the left breast at the 4 o'clock position. Mammogram and ultrasound confirmed a suspicious density in the left breast and biopsy under ultrasound guidance is scheduled for 08/13/2024. I recommended she return in 1 week to review the results and discuss treatment options. She expressed understanding and agrees with the plan. Coding Level of Care Code New Pt Level 4 (87410) Diagnoses Left breast mass N63.20 Abnormal mammogram of left breast R92.8 Abnormal ultrasound of breast R92.8
[2024-08-11 14:20] VITALS: BP 140/70; PULSE 76; BMI 31.8
== END 2024-08-11 14:36 | disposition home or self-care (01) ==
LOC: HO.HGS 14:03
PROVIDERS: PCP Internal Medicine; Visit Provider Surgery
DX: N63.20 Unspecified lump in the left breast, unspecified quadrant (principal); R92.8 Other abnormal and inconclusive findings on diagnostic imaging of breast
CPT/HCPCS: 99204

== ENCOUNTER → 2024-08-11 14:03 | Outpatient (BNVA) | payer MEDICARE, SELFPAY | PROVIDERS: PCP Internal Medicine; Visit Provider Surgery | DX: N63.23 Unspecified lump in the left breast, lower outer quadrant (principal); R92.8 Other abnormal and inconclusive findings on diagnostic imaging of breast | CPT/HCPCS: 99202 ==

== ENCOUNTER 2024-08-13 07:46 | Outpatient (REF) | payer MEDICARE, SELFPAY ==
--- NOTE | ~2024-08-13 | MM_ITS ---
PROCEDURE: ULTRASOUND-GUIDED LEFT BREAST BIOPSY CLINICAL INFORMATION: Irregular solid mass in the left breast at 4:00 and prominent axillary lymph node. COMPARISON: [facility] on PACS. TECHNIQUE: The details of the procedure, as well as the risks, benefits, and alternatives to the procedure were explained to the patient in detail and all of her questions were answered, after which, written informed consent was obtained. PROCEDURE: Prior to the procedure, sonography revealed solid irregular mass at 4:00 in the left breast and prominent left axillary lymph node. A time-out was performed, the lesion intended for biopsy was targeted and the skin of the breast was then prepped and draped in the usual sterile fashion. Left breast mass 4:00: Using sonographic guidance, sterile technique, and 1% lidocaine without epinephrine for local anesthesia, a total of 5 cores were obtained through the targeted area with a 14-gauge biopsy device. At the completion of tissue sampling, a single open coil metallic clip was deposited at the biopsy site. Left axillary lymph node: Using sonographic guidance, sterile technique, and 1% lidocaine without epinephrine for local anesthesia, a total of 4 cores were obtained through the targeted area with a 18-gauge and 14-gauge biopsy device. At the completion of tissue sampling, a single butterfly metallic clip was deposited at the biopsy site. An appropriate sample was obtained. The postprocedure 2-view direct digital mammogram reveals satisfactory positioning of the biopsy clips. The patient tolerated the procedure well and, after assuring adequate hemostasis, was discharged in good condition after reviewing postbiopsy breast care instructions. Final pathology results are pending. MM/MM tomosynthesis diagnostic LT IMPRESSION: 1. Uncomplicated sonographically-guided core biopsy of the left breast and left axilla. The 2-view direct digital postprocedure mammogram reveals satisfactory positioning of the biopsy clip. 2. Final pathology results are pending. A separate report with final recommendations will be issued once these results are made available. Electronically signed by: Mavis Miguel DO 08/13/2024 10:22 AM EDT
[2024-08-13] MEDS: Sodium Bicarbonate 8.4% 50 MEQ/50 ML VIAL SUBCUT (08:59)
[2024-08-13] MEDS: Lidocaine HCl 1 % 20 ML VIAL 18 ML SUBCUT (09:00)
== END 2024-08-13 07:47 | disposition home or self-care (01) ==
LOC: HO.MAMMO 07:46
PROVIDERS: Pathology Anatomic Pathology & Clinical Pathology; PCP Internal Medicine; Visit Provider Surgery
DX: C50.412 Malignant neoplasm of upper-outer quadrant of left female breast (principal); R92.8 Other abnormal and inconclusive findings on diagnostic imaging of breast; C77.3 Secondary and unspecified malignant neoplasm of axilla and upper limb lymph nodes
CPT/HCPCS: 19083; 36415; 38505; 76942; 77061; 77065; 88305; 88341; 88342; 88360; 88374; 88377; A4648; J2003

== ENCOUNTER → 2024-08-13 08:00 | Outpatient (BNV) | payer MEDICARE, SELFPAY | PROVIDERS: PCP Internal Medicine; Visit Provider Internal Medicine | DX: C50.512 Malignant neoplasm of lower-outer quadrant of left female breast (principal) | CPT/HCPCS: 19083; 19084; 38505; 76942; 77065 ==

== ENCOUNTER 2024-08-20 13:36 | Outpatient (AMB) | payer MEDICARE, SELFPAY ==
--- NOTE | 2024-08-20 13:37 | MHC.OFFVIS ---
Intake Visit Reasons: 1 wk follow up LT BR USBX FOR 4:00 MASS & AXILLA Intake Note: Patient is seen in office for ultrasound biopsy RESULTS, left breast 4 o'clock mass & axilla. 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 In addition a slightly prominent left axillary lymph node was noted as well. Both were felt to be suspicious for malignancy and ultrasound-guided core biopsy recommended. She denies a previous history of breast problems or breast surgery. Her family history is negative for breast or ovarian cancer. She denies any current symptoms in either breast. Her menarche was at age 16. She is with 2 adult daughters who both live in [place]. Her 1st child was born when she was 21 years old. She denied breast-feeding. She denies Ashkenazi Pentecostal heritage. She underwent a left breast ultrasound-guided biopsy of the lesion at the 4 o'clock position as well as an enlarged lymph node in the left axilla. Pathology revealed invasive ductal carcinoma, grade 2 with metastatic carcinoma involving the left axillary lymph node. ER receptor positive, PA receptor positive, HER2 Johnathan positive, Ki-67 high for both the primary left breast tumor and left axillary lymph node. A copy of the report was provided to the patient in the results reviewed in detail. She tolerated the biopsy well and denies any ongoing breast symptoms. [facility] Medical History 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, major, recurrent Rotator cuff impingement syndrome of right shoulder Osteoarthritis History of PAT (paroxysmal atrial tachycardia) Hemochromatosis Surgical History Hx of hemorrhoidectomy Hx of cholecystectomy History of excision of lesion (08/16/14) History of partial hysterectomy (~2009) Hx of toe surgery (~1995) Hx of colonoscopy (10/07/18) Hx of arthroplasty (10/09/16) Family History Father HTN (hypertension) Lung cancer Mother Osteoporosis Sister Hemochromatosis Paternal Grandfather Skin cancer Bone cancer Maternal Grandmother Breast cancer Other Mental health disorder Social History Household Members: None Housing: Apartment Are you a primary home care rn to a significant other at home: No Do you presently have visiting nurse or other home services: No Alcohol intake: current Alcohol intake frequency: a few times a month Alcohol type: wine Patient Tobacco Use Status: Former Tobacco user Tobacco use type: Cigarette Cigarette Packs Per Day: 2 Cigarettes Per Day: 40.0 Years Smoked: 29 e-Cigarette/Vaping Use: Never Used Advance Directives Date on File: 10/08/16 service: No Current occupational status: retired and disabled Current occupation: right handed Cognitive needs: No Hearing needs: No Vision needs: Yes Female Reproductive History Menstrual Age of Menarche: 16 Review of Systems Const All systems reviewed & are unremarkable except as noted in HPI and below Physical Exam Const General: cooperative and no acute distress Nutritional Appearance: well nourished Orientation/consciousness: patient oriented x3 Limitations: no limitations HEENT Head: Yes normocephalic and Yes atraumatic Ears: hearing grossly normal bilaterally Chest Other: Left breast: No skin change, no nipple retraction, no nipple discharge, no enlarged lymph nodes, palpable breast mass noted in the 4 o'clock location, fairly superficial within the breast tissue, mobile and without overlying skin changes. Right breast: No skin change, no nipple retraction, no nipple discharge, no palpable mass, no enlarged lymph nodes Resp Effort & Inspection: normal respiratory effort, no audible wheezes, no cough and no respiratory distress Cardio Jugular venous distension: no JVD GI Inspection: Yes normal to inspection Skin Other: Warm, dry, no rash Neuro General: patient oriented x3 Extrem General: Yes no clubbing, cyanosis or edema Assessment & Plan Assessment & Plan (1) Invasive ductal carcinoma of left breast: Code(s): C50.912 - Malignant neoplasm of unspecified site of left female breast Category: Medical Plan 68-year-old female patient presenting with a palpable mass in the left breast at the 4 o'clock position. Mammogram and ultrasound confirmed a suspicious density in both the left breast and left axilla. She returns today following ultrasound-guided core biopsy on 08/13/2024. Biopsies revealed invasive ductal carcinoma, grade 2, ER/PA/HER2 Johnathan positive with high Ki-67. Lesion measures at least 2 cm in diameter (pT2 N1). I recommended further evaluation with MRI of the breast and preoperative evaluation by Medical Oncology for consideration of neoadjuvant treatment. She does seem to be a candidate for lumpectomy given the location of the tumor and the relative size of her breast. I will await oncology evaluation before scheduling surgery. The patient expressed understanding and agrees with the plan. Orders: Orders MR breast BI wo/w con Today C50.912 - Malignant neoplasm of unspecified site of left female breast Referrals Hematology & Oncology Referral C50.912 - Malignant neoplasm of unspecified site of left female breast Coding Level of Care Code Est Pt Level 4 (10547) Diagnoses Invasive ductal carcinoma of left breast C50.912
== END 2024-08-20 13:52 | disposition home or self-care (01) ==
LOC: HO.HGS 13:37
PROVIDERS: PCP Internal Medicine; Visit Provider Surgery
DX: C50.912 Malignant neoplasm of unspecified site of left female breast (principal)
CPT/HCPCS: 99214

== ENCOUNTER → 2024-08-20 13:36 | Outpatient (BNVA) | payer MEDICARE, SELFPAY | PROVIDERS: PCP Internal Medicine; Visit Provider Surgery | DX: C50.512 Malignant neoplasm of lower-outer quadrant of left female breast (principal) | CPT/HCPCS: 99212 ==

== ENCOUNTER → 2024-08-24 11:36 | Outpatient (BNV) | payer MEDICARE, SELFPAY | PROVIDERS: PCP Internal Medicine; Visit Provider Internal Medicine | DX: D05.12 Intraductal carcinoma in situ of left breast (principal); C77.3 Secondary and unspecified malignant neoplasm of axilla and upper limb lymph nodes | CPT/HCPCS: 77049 ==

== ENCOUNTER 2024-08-24 11:38 | Outpatient (REF) | payer MEDICARE, SELFPAY ==
--- NOTE | ~2024-08-24 | MR_ITS ---
EXAMINATION: MR BREAST WITHOUT AND WITH CONTRAST, BILATERAL CLINICAL INFORMATION: Recently diagnosed left breast cancer with metastatic left lymph node. COMPARISON: Prior imaging oncology PACS August 13 June. TECHNIQUE: MR imaging of the breast was performed using T1, T2 and fat saturated techniques. Dynamic multiphase imaging was also performed after administration of intravenous gadolinium contrast agent. Computer generated 3-D reconstruction was performed. FINDINGS: The patient's fibroglandular tissue demonstrates moderate background enhancement. LEFT BREAST: In the lower outer breast there is a irregular enhancing mass measuring 20 mm anterior to posterior by 16 mm transverse by 26 mm superior to inferior with internal susceptibility clip artifact at site of known biopsy-proven invasive ductal carcinoma approximately 10 cm from the nipple. Prominent axillary lymph node at site of biopsy-proven metastatic carcinoma. No other suspicious enhancing masses or areas of nonmass enhancement. No internal mammary adenopathy. RIGHT BREAST: No suspicious enhancing masses or areas of nonmass enhancement. No architectural distortion. No internal mammary or axillary adenopathy. Limited views of the chest and abdomen are unremarkable. MR/MR breast BI wo/w con IMPRESSION: Left: Biopsy-proven malignancy at 4:00 in the left breast invasive ductal carcinoma with known metastatic carcinoma in one left axillary lymph node. No other suspicious enhancing areas. Right: No MR evidence of malignancy. ASSESSMENT: LEFT BREAST: BI-RADS 6 known biopsy-proven malignancy. RIGHT BREAST: BI-RADS 1-Negative RECOMMENDATIONS: Recommend breast surgical consultation for excision and further management of known left breast malignancy with metastatic left axillary lymph node. Electronically signed by: Mavis Miguel DO 08/25/2024 11:21 AM EDT
[2024-08-24] MEDS: gadobutroL 10 ML VIAL IVPUSH (12:54)
== END 2024-08-24 11:39 | disposition home or self-care (01) ==
LOC: HO.MRI 11:38
PROVIDERS: PCP Internal Medicine; Visit Provider Surgery
DX: C50.912 Malignant neoplasm of unspecified site of left female breast (principal)
CPT/HCPCS: 77049; A9585

== ENCOUNTER → 2024-08-28 11:01 | Outpatient (BNV) | payer MEDICARE, SELFPAY | PROVIDERS: PCP Internal Medicine; Visit Provider Internal Medicine Medical Oncology | DX: C34.92 Malignant neoplasm of unspecified part of left bronchus or lung (principal) | CPT/HCPCS: 99204 ==

== ENCOUNTER 2024-09-01 13:16 | Outpatient (AMB) | payer MEDICARE, SELFPAY ==
[2024-09-01 13:20] VITALS: BP 116/78; PULSE 77; RESP 20; TEMP 36.9; O2SAT 98; BMI 32.3
--- NOTE | 2024-09-01 13:20 | MHC.PC.OV ---
Vital Signs 09/01/24 13:20 Height 5 ft 9 in Weight 219 lb BMI 32.3 BP 116/78 Blood Pressure Location Rt brachial Position Sitting Respiration 20 Pulse 77 Pulse Source Pulse Oximeter Temp 98.4 F Temp Source Oral Pulse Oximetry (%) 98 Oxygen Delivery Method Room Air Intake Visit Reasons: 3 month follow up Allergies adhesive tape [ADHESIVE TAPE] Allergy (Intermediate, Verified 09/01/24 13:22) rednes from band-aids Medication List - Last Reconciled 09/01/24 by Kathleen Ray MD diltiazem HCl CD 120 mg PO DAILY gabapentin 300 mg PO BEDTIME sertraline 150 mg (1.5 x 100 mg) PO DAILY 90 days Tobacco use date assessed: 09/01/24 Fall risk assessment: No Falls in past year Last assessed Fall Risk: 09/01/24 Dental Screening Dental Screen Date: 09/01/24 Did you have a dental visit in the last 12 months?: No Did you have a dental problem in the last 6 months where you did not have access to dental care?: No Was dental information given to patient?: Patient declined HPI 3 month follow up HPI Details History - The patient is a 68-year-old female presenting for regular follow-up appointment and has been newly diagnosed with breast cancer. Left-sided - Diagnosed on the left side and previously investigated with a mammogram, ultrasound, and biopsy. - A PET scan is planned to guide the decision between chemotherapy and surgery. Through [facility] - She has essential hypertension and PAT, which is well managed with Diltiazem. - The patient is being treated for depression with sertraline 150 mg and confirms stability in mood and anxiety. - Recent labs show a slight hemoglobin decrease to 11.9, while other values like electrolytes, glucose, and liver enzymes remain normal. Hemochromatosis induced cirrhosis managed by [facility]. She was having phlebotomy done every 4 weeks, in setting of breast cancer it might be more than 4 weeks Patient is on gabapentin 300 mg at night for pain management, patient has multiple joint osteoarthritis Problem List - Breast Cancer - Essential Hypertension - Depression - Anxiety - hemochromatosis - multiple joint osteoarthritis pain management with gabapentin Patient Instructions - Continue current medications: Diltiazem, gabapentin, and sertraline. - Follow-up with Dr. Najera as scheduled for the PET scan and further management of breast cancer. - Maintain adherence to prescribed blood pressure medication to keep levels controlled. - Monitor for symptoms of fatigue and report significant changes to a healthcare provider. - Return for a follow-up appointment in six months unless otherwise directed. Review of Systems - General: Reports fatigue. - Psychiatric: Denies any issues with anxiety or depression. - General: No fever no chills - Neurological: No headaches no dizziness - Ear nose throat: No sore throat no hearing difficulty no ear pain - Cardiovascular: No syncope, no chest pain, no palpitations - Gastrointestinal: No nausea vomiting or diarrhea - Endocrine: No polyuria polydipsia no heat intolerance - Genitourinary: No dysuria , no blood in urine Physical Exam General: No acute distress HEENT: No acute findings Neck: Supple Respiratory system: Able to talk in full sentences, no audible wheeze Cardiovascular: S1-S2 regular in rate and rhythm Gastrointestinal: No pain Extremities: No swelling VIDEO GAME ENGINEER: Alert awake oriented x3 motor sensory intact Skin: Normal turgor PFSH Medical History 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, major, recurrent Rotator cuff impingement syndrome of right shoulder Osteoarthritis History of PAT (paroxysmal atrial tachycardia) Hemochromatosis Surgical History Hx of hemorrhoidectomy Hx of cholecystectomy History of excision of lesion (08/16/14) History of partial hysterectomy (~2009) Hx of toe surgery (~1995) Hx of colonoscopy (10/07/18) Hx of arthroplasty (10/09/16) Family History Father HTN (hypertension) Lung cancer Mother Osteoporosis Sister Hemochromatosis Paternal Grandfather Skin cancer Bone cancer Maternal Grandmother Breast cancer Other Mental health disorder Social History Household Members: None Housing: Apartment Are you a primary director of career services to a significant other at home: No Do you presently have visiting nurse or other home services: No Alcohol intake: current Alcohol intake frequency: a few times a month Alcohol type: wine Patient Tobacco Use Status: Former Tobacco user Tobacco use type: Cigarette Cigarette Packs Per Day: 2 Years Smoked: 29 e-Cigarette/Vaping Use: Never Used Advance Directives Date on File: 10/08/16 service: No Current occupational status: retired and disabled Current occupation: right handed Cognitive needs: No Hearing needs: No Vision needs: Yes Female Reproductive History Menstrual Age of Menarche: 16 Questionnaire Thrive Questionnaire Date Thrive assessed: 09/25/23 AUDIT C Alcohol Use Questionnaire (AUDIT-C) 1. How often do you have a drink containing alcohol?: Monthly or less 2. How many drinks containing alcohol do you have on a typical day when you are drinking?: 1 or 2 3. How often do you have six or more drinks on one occasion?: Never Total Score: 1 BUZZ-7 AMB Questionnaire BUZZ-7 Date BUZZ - 7 assessed: 09/25/23 Source: Developed by Drs. Aidan Benson, Claudia Unger, Fermín Mei and colleagues, with an educational nikhil from [employer]. Physical exam (Primary Care) Vital Signs: Last Vital Signs Temp 98.4 F 09/01/24 13:20 Pulse 77 09/01/24 13:20 Resp 20 09/01/24 13:20 BP 116/78 09/01/24 13:20 Pulse Ox 98 09/01/24 13:20 Oxygen Delivery Method Room Air 09/01/24 13:20 BMI result Body Mass Index 32.3 Tobacco/Smoking Status: Tobacco use Status Tobacco use date assessed 09/01/24 09/01/24 13:25 Patient Tobacco Use Status Former Tobacco user 09/01/24 13:25 Tobacco use type Cigarette 09/01/24 13:25 e-Cigarette/Vaping Use Never Used 09/01/24 13:25 Thrive Assessment: Date of Thrive Assessment Date Thrive assessed 09/25/23 09/01/24 13:25 Coding Level of Care Code Est Pt Level 4 (72703) Complex EM visit Add On G2211 Diagnoses Invasive ductal carcinoma of left breast C50.912 Hereditary hemochromatosis E83.110 Hemochromatosis type: hereditary Primary osteoarthritis involving multiple joints M15.9 Osteoarthritis location: multiple joints Osteoarthritis type: primary Recurrent major depressive disorder, in partial remission F33.41 Active/Remission status: in partial remission PAT (paroxysmal atrial tachycardia) I47.1 Cirrhosis due to hemochromatosis E83.10 Anxiety, generalized F41.1 Class 1 obesity due to excess calories with serious comorbidity and body mass index (BMI) of 32.0 to 32.9 in adult E66.09; Z68.32 Obesity classification: adult class 1 (BMI 30 - 34.9) Serious obesity comorbidity presence: with serious comorbidity Body mass index: BMI 32.0-32.9 Assessment & Plan Assessment & Plan (1) Invasive ductal carcinoma of left breast: Code(s): C50.912 - Malignant neoplasm of unspecified site of left female breast Category: Medical (2) Hemochromatosis: Comment: hx therapeutic phlebotomies-last was end of July 2022 Code(s): E83.119 - Hemochromatosis, unspecified Category: Medical Qualifiers: Hemochromatosis type: hereditary Qualified Code(s): E83.110 - Hereditary hemochromatosis (3) Osteoarthritis: Code(s): M19.90 - Unspecified osteoarthritis, unspecified site Category: Medical Qualifiers: Osteoarthritis location: multiple joints Osteoarthritis type: primary Qualified Code(s): M15.9 - Polyosteoarthritis, unspecified (4) Depression, major, recurrent: Code(s): F33.9 - Major depressive disorder, recurrent, unspecified Category: Medical Qualifiers: Active/Remission status: in partial remission Qualified Code(s): F33.41 - Major depressive disorder, recurrent, in partial remission (5) PAT (paroxysmal atrial tachycardia): Code(s): I47.1 - Supraventricular tachycardia Category: Medical (6) Cirrhosis due to hemochromatosis: Comment: Laboratory Tests WBC 5.0 RBC 4.34 Hgb 14.5 Hct 43.2 MCV 99.5 H MCH 33.4 H Plt Count 177 Estimated GFR Hemoglobin A1c % 5.6 GGT 217 H 12/20/20 Estimated GFR > 60 Hemoglobin A1c % Total Bilirubin 0.6 Direct Bilirubin 0.3 AST 40 H ALT 40 H Alkaline Phosphatase 72 ferritin was not obtained * CT ABD AND PELVIS 07/04/20? FINDINGS: LUNG BASES: There is a 2 mm right lower lobe nodule axial image 9 series 7. LIVER, GALLBLADDER, AND BILIARY TREE: The liver is enlarged, right lobe measuring 21 cm in length. The left lobe and caudate lobe appears prominent as well. The contour of the liver is slightly nodular suggestive of mild cirrhosis. No focal liver lesion is seen. The gallbladder has been removed. There is no biliary duct dilatation. PANCREAS: Unremarkable? SPLEEN: Unremarkable? ADRENAL GLANDS: Unremarkable? KIDNEYS AND URETERS: The kidneys are normal in size, shape, and attenuation. No hydronephrosis, hydroureter, or calculi seen. No perinephric stranding.? BLADDER: Not optimally distended. GASTROINTESTINAL TRACT: The small and large bowel are unremarkable. The appendix is not identified. ABDOMINAL WALL: There are umbilical and ventral hernias containing fat. LYMPH NODES: Normal VASCULAR: Unremarkable PELVIC VISCERA: The uterus appears to have been removed. No pelvic mass is seen. OSSEOUS STRUCTURES: There are degenerative changes of the spine and hip joints.? CT/CT abdomen pelvis wo/w con IMPRESSION: Slightly nodular contour of the liver suggestive of mild cirrhosis. No focal liver lesion is seen. Post cholecystectomy. No biliary duct dilatation. Small umbilical and ventral hernias containing fat. Code(s): E83.10 - Disorder of iron metabolism, unspecified Category: Medical (7) Anxiety, generalized: Code(s): F41.1 - Generalized anxiety disorder Category: Medical (8) Obesity due to excess calories: Code(s): E66.09 - Other obesity due to excess calories Category: Medical Qualifiers: Obesity classification: adult class 1 (BMI 30 - 34.9) Serious obesity comorbidity presence: with serious comorbidity Body mass index: BMI 32.0-32.9 Qualified Code(s): E66.09 - Other obesity due to excess calories; Z68.32 - Body mass index [BMI] 32.0-32.9, adult Plan History - The patient is a 68-year-old female presenting for regular follow-up appointment and has been newly diagnosed with breast cancer. Left-sided - Diagnosed on the left side and previously investigated with a mammogram, ultrasound, and biopsy. - A PET scan is planned to guide the decision between chemotherapy and surgery. Through [facility] - She has essential hypertension and PAT, which is well managed with Diltiazem. - The patient is being treated for depression with sertraline 150 mg and confirms stability in mood and anxiety. - Recent labs show a slight hemoglobin decrease to 11.9, while other values like electrolytes, glucose, and liver enzymes remain normal. Hemochromatosis induced cirrhosis managed by [facility]. She was having phlebotomy done every 4 weeks, in setting of breast cancer it might be more than 4 weeks Patient is on gabapentin 300 mg at night for pain management, patient has multiple joint osteoarthritis Follow-up six-month Problem List - Breast Cancer - Essential Hypertension - Depression - Anxiety - hemochromatosis - multiple joint osteoarthritis pain management with gabapentin Patient Instructions - Continue current medications: Diltiazem, gabapentin, and sertraline. - Follow-up with Dr. Najera as scheduled for the PET scan and further management of breast cancer. - Maintain adherence to prescribed blood pressure medication to keep levels controlled. - Monitor for symptoms of fatigue and report significant changes to a healthcare provider. - Return for a follow-up appointment in six months unless otherwise directed.
== END 2024-09-01 13:57 | disposition home or self-care (01) ==
LOC: HO.HMCC 13:16
PROVIDERS: PCP Internal Medicine; Visit Provider Internal Medicine
DX: I47.10 Supraventricular tachycardia, unspecified (principal); C50.912 Malignant neoplasm of unspecified site of left female breast; E83.110 Hereditary hemochromatosis; F33.41 Major depressive disorder, recurrent, in partial remission; Z68.32 Body mass index [BMI] 32.0-32.9, adult; E66.09 Other obesity due to excess calories; M15.9 Polyosteoarthritis, unspecified; E83.10 Disorder of iron metabolism, unspecified; F41.1 Generalized anxiety disorder

== ENCOUNTER → 2024-09-01 13:16 | Outpatient (BNVA) | payer MEDICARE, SELFPAY | PROVIDERS: PCP Internal Medicine; Visit Provider Internal Medicine | DX: I10 Essential (primary) hypertension (principal); F41.9 Anxiety disorder, unspecified; M15.9 Polyosteoarthritis, unspecified; E83.110 Hereditary hemochromatosis; F33.41 Major depressive disorder, recurrent, in partial remission; I47.19 Other supraventricular tachycardia; F41.1 Generalized anxiety disorder; E66.09 Other obesity due to excess calories; Z68.32 Body mass index [BMI] 32.0-32.9, adult; Z85.3 Personal history of malignant neoplasm of breast; Z79.899 Other long term (current) drug therapy | CPT/HCPCS: 99212 ==

== ENCOUNTER → 2024-09-09 14:46 | Outpatient (REF) | payer MEDICARE, SELFPAY ==
--- NOTE | 2024-09-09 14:51 | CA_ITS ---
Transthoracic Echocardiogram Patient (Last, First, Middle): Isabel Ramey Ann Gender: Female Date of : 1955 Age: 68 Procedure Date: 09/09/2024 Procedure Type: Transthoracic Echocardiogram Location: OP Height: 175.26 cm Weight: 98.88 kg BSA: 2.14 m2 Heart Rate: bpm BP: 130 / 86 mmHg Director Fixed Income: TO Referring MD: Marilyn Najera MD Visual Merchandising Associate: Osei Galvin MD Symptoms: Pre chemotherapy assessment of heart function Study Quality: Fair/Contrast ECG Rhythm: Sinus Conclusions: - 1. Normal LV ejection fraction 60 65% with grade 1 diastolic dysfunction 2. Normal cardiac valvular Dopplers 3. No gross pericardial effusion Findings Procedure Information Contrast agent, definity, is being given per protocol without apparent complications. Left Ventricle Normal left ventricular size, thickness, and systolic function. The visually estimated ejection fraction is between 60-65%. Spectral Doppler is indicative of an impaired relaxation filling pattern. E/E prime ratio is <8, consistent with normal filling pressures. Evidence suggests grade I (mild) diastolic dysfunction. Peak GLS is -17.8%, borderline normal. Wall Motion Rest Echo Findings The basal inferior segment is hypokinetic. All other scored wall segments showed normal motion. Right Ventricle Normal right ventricular cavity size and systolic function. Atria The left atrium is normal in size. Interatrial shunt cannot be excluded. The right atrium was not well visualized. Aortic Valve The aortic valve was not well visualized. There is no aortic valve stenosis. There is no aortic valve regurgitation. Pulmonic Valve The pulmonic valve was not well visualized. Tricuspid Valve The tricuspid valve was not well visualized. Tricuspid regurgitation envelope is inadequate for calculation of right ventricular systolic pressure. Normal right atrial pressure. Great Vessels The pulmonary artery was not well visualized. Venous The inferior vena cava is normal in size and collapses greater than 50% with inspiration. Pericardium/Pleural There is no evidence of pericardial effusion. Prior Study Comparison No significant change compared to prior study dated: 09/15/2018. Measurements 2D Linear Measurements IVSd: 0.92 0.6-0.9/0.6-1.0 cm LVIDd: 4.79 3.9-5.3/4.2-5.9 cm LVIDd Index: 2.24 2.4-3.2/2.2-3.1 cm/m2 LVIDs: 3.19 2.0-3.6 cm LVPWd: 0.83 0.7-1.1 cm LA Diam: 4.60 2.7-3.8/3.0-4.0 cm LAIDs Index: 2.15 1.5-2.3 cm/m2 LV Mass: 176.62 67-162/88-224 g LV Mass Index: 82.53 43-95/49-115 g/m2 LVOT Diam: 2.00 3.0+(-)1.3 cm 2D Systolic Function EF 4C: 64.40 >55% EF 2C: 60.30 >55% EF BiP: 62.10 >55% Mitral Valve MV Pk E: 0.60 MV PK A: 0.93 MV Decel Time: 227.00 E/A: 0.60 E'Lateral: 7.94 E'Medial: 5.33 E/E' Med: 11.20 E/E' Lat: 7.50 PHT: 66.00 MVA PHT: 3.33 Decel [place]: 2.63 Aortic Valve AoV Pk Orestes: 1.49 AoV Mn Orestes: 0.96 AoV VTI: 0.28 AoV Pk Grad: 9.00 Aov Mn Grad: 4.00 MARIA ESTHER Cont.VTI: 2.52 LVOT LVOT Pk Orestes: 0.99 LVOT Mn Orestes: 0.66 LVOT VTI: 0.22 LVOT Pk Grad: 4.00 LVOT Mn Grad: 2.00 LVOT Diam: 2.00 LVOT Area: 3.14 Diastolic Function MV Pk E: 0.60 MV Pk A: 0.93 E/A: 0.60 E'Medial: 5.33 E/E' Med: 11.20 E' Laterial: 7.94 E/E' Lat: 7.50 Right Ventricle TAPSE (mm): 20.00 TVS' Orestes: 13.30 Tricuspid Valve RA Press: 8.00 Great Vessels Aorta Sinus of Valsalva: 3.11 2.0-3.5 cm Ao Asc: 3.60 2.1-3.4 cm Updated in Other Vendor System with Status of Final Osei Galvin MD electronically signed on 09/09/2024 4:55:20 PM with status of Final
== END ==
LOC: HO.CARD 14:46
PROVIDERS: PCP Internal Medicine; Visit Provider Internal Medicine Medical Oncology
DX: Z01.818 Encounter for other preprocedural examination (principal); C50.912 Malignant neoplasm of unspecified site of left female breast; Z17.31 Human epidermal growth factor receptor 2 positive status; I51.89 Other ill-defined heart diseases
CPT/HCPCS: 93306; Q9957

== ENCOUNTER → 2024-09-09 14:51 | Outpatient (BNV) | payer MEDICARE, SELFPAY | PROVIDERS: PCP Internal Medicine; Visit Provider Internal Medicine Cardiovascular Disease | DX: Z01.818 Encounter for other preprocedural examination (principal); I36.1 Nonrheumatic tricuspid (valve) insufficiency | CPT/HCPCS: 93306; 93356 ==

== ENCOUNTER 2024-09-15 14:47 | Outpatient (AMB) | payer MEDICARE, SELFPAY ==
--- NOTE | 2024-09-15 14:49 | A.OFFVIS_ITS ---
Vital Signs 09/15/24 14:51 Height 5 ft 9 in Weight 213 lb 13.574 oz BMI 31.6 BP 139/87 Blood Pressure Location Lt brachial Position Sitting Pulse 82 Pulse Source Pulse Oximeter Intake Visit Reasons: MRI results Intake Note: Isabel presents in the office as a MRI follow up. CC: She states that she is just here for the results. Market Development Executive Required: No Allergies adhesive tape [ADHESIVE TAPE] Allergy (Intermediate, Verified 09/16/24 13:05) rednes from band-aids Medication List - Last Reconciled 09/17/24 by Mike Christopher MD diltiazem HCl CD 120 mg PO DAILY gabapentin 300 mg PO BEDTIME [multivitamin ] sertraline 150 mg (1.5 x 100 mg) PO DAILY 90 days [vitamin E ] HPI Comments Details: 68-year-old female patient returning for follow-up discussion along with her daughter from [place]. A recent diagnostic mammogram and ultrasound performed on 07/22/2024 revealed a solid irregular mass in the left breast at the 4 o'clock position. A slightly prominent left axillary lymph node was also noted and felt to be suspicious. She underwent ultrasound-guided core biopsy of both lesions on 08/13/2024. Pathology revealed invasive ductal carcinoma, grade 2 with metastatic carcinoma involving the left axillary lymph node, ER positive, VT positive, HER2 Johnathan negative by FISH. She underwent breast MRI on 08/24/2024. This confirmed the known left breast cancer with no new suspicious findings in either breast (BI-RADS 6 left breast, BI-RADS 1 right breast). She was evaluated by Dr. Najera who has requested a PET scan. The PET scan was completed on 09/11/2024 which revealed metabolically active left breast cancer but no other evidence of metastatic disease. The patient was offered either neoadjuvant or adjuvant chemotherapy. Patient was decided to proceed with surgery. She was scheduled for a Port-A-Cath placement later today. [facility] Medical History 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, major, recurrent Rotator cuff impingement syndrome of right shoulder Osteoarthritis History of PAT (paroxysmal atrial tachycardia) Hemochromatosis Surgical History Hx of hemorrhoidectomy Hx of cholecystectomy History of excision of lesion (08/16/14) History of partial hysterectomy (~2009) Hx of toe surgery (~1995) Hx of colonoscopy (10/07/18) Hx of arthroplasty (10/09/16) Family History Father HTN (hypertension) Lung cancer Mother Osteoporosis Sister Hemochromatosis Paternal Grandfather Skin cancer Bone cancer Maternal Grandmother Breast cancer Other Mental health disorder Social History Household Members: None Housing: Apartment Are you a primary doggy daycare activities director to a significant other at home: No Do you presently have visiting nurse or other home services: No Alcohol intake: current Alcohol intake frequency: holidays/special occasions only Alcohol type: wine Patient Tobacco Use Status: Former Tobacco user Tobacco use type: Cigarette Cigarette Packs Per Day: 2 Years Smoked: 29 e-Cigarette/Vaping Use: Never Used Use of substances other than those prescribed or required for medical reasons: No Advance Directives: No Advance Directives Information Provided: Yes Advance Directives Date on File: 10/08/16 service: No Current occupational status: retired and disabled Current occupation: right handed Cognitive needs: No Hearing needs: No Vision needs: Yes Female Reproductive History Menstrual Age of Menarche: 16 Review of Systems Const All systems reviewed & are unremarkable except as noted in HPI and below Physical Exam Vital Signs: Last Vital Signs Pulse 82 09/15/24 14:51 BP 139/87 09/15/24 14:51 BMI result Body Mass Index 31.6 Const General: cooperative and no acute distress Nutritional Appearance: well nourished Orientation/consciousness: patient oriented x3 Limitations: no limitations HEENT Head: Yes normocephalic and Yes atraumatic Ears: hearing grossly normal bilaterally Chest Other: Left breast: No skin change, no nipple retraction, no nipple discharge, no enlarged lymph nodes, palpable breast mass noted in the 4 o'clock location, fairly superficial within the breast tissue, mobile and without overlying skin changes. Right breast: No skin change, no nipple retraction, no nipple discharge, no palpable mass, no enlarged lymph nodes Resp Effort & Inspection: normal respiratory effort, no audible wheezes, no cough and no respiratory distress Cardio Jugular venous distension: no JVD GI Inspection: Yes normal to inspection Skin Other: Warm, dry, no rash Neuro General: patient oriented x3 Extrem General: Yes no clubbing, cyanosis or edema Assessment & Plan Assessment & Plan (1) Invasive ductal carcinoma of left breast: Code(s): C50.912 - Malignant neoplasm of unspecified site of left female breast Category: Medical Plan 68-year-old female patient presenting with a left breast invasive ductal carcinoma with metastatic disease to a left axillary lymph node. She has been evaluated with MRI, PET scan which reveals tumor only involving the left breast and axilla. There is no evidence of metastatic disease or right breast disease. We discussed lumpectomy with localizer as well as left axillary sentinel node biopsy. After discussion of the procedure, risks, and alternatives, she consents to the left breast lumpectomy with localizer, left axillary sentinel node biopsy to be performed as a short-stay surgery. Coding Level of Care Code Est Pt Level 4 (58576) Diagnoses Invasive ductal carcinoma of left breast C50.912
[2024-09-15 14:51] VITALS: BP 139/87; PULSE 82; BMI 31.6
--- OUTSIDE RECORDS SUMMARY | 2024-09-15 17:41 | XMS_ITS | Clinical Summary ---
Author Organization [facility] Address [address] [place] [address] Phone Care Team Providers Care Mechanical Research Engineer Name Role Phone Kennedi Galvan MD Primary Care Provider [phone] Encounters Date Type Department Care Team Description 09/11/2024 12:40 PM EDT Hospital Encounter [facility] PET Scan [address] [place] [address] Malignant neoplasm of unspecified site of left female breast (CMS/HCC V24, CMS/HCC V28) from Last 3 Months Social History Tobacco Use Types Packs/Day Years Used Date Smoking Tobacco: Never Assessed Comments Unknown Sex and Gender Information Value Date Recorded Sex Assigned at Not on file Legal Sex Female 11:20 PM EST Gender Identity Not on file Sexual Orientation Not on file Plan of Treatment Health Maintenance Due Date Last Done Comments Breast Cancer Screening 1955 COVID-19 Vaccine ( season) 2024 02/07/2024, 03/21/2023, 03/17/2022, Additional history exists Colorectal Cancer Screening: Colonoscopy 09/10/2024 Depression Screening 09/10/2024 Falls Risk Assessment 09/10/2024 Hepatitis C Screening 09/10/2024 Medicare Annual Wellness Visit 09/10/2024 Osteoporosis Screening (Bone Density Screening) 09/10/2024 Social Influencers of Health Screening 09/10/2024 DTaP,Tdap,and Td Vaccines (2 - Td or Tdap) 07/20/2034 07/20/2024 Zoster Vaccines Completed 01/12/2018, 08/14/2017 Pneumococcal Vaccine: 50+ Years Completed 11/08/2021 RSV Immunization Adult Patients Completed 04/11/2023 Influenza Vaccine Completed 02/07/2024, , 03/17/2022, Additional history exists HIB Vaccines Aged Out No longer eligi [...] to complete this topic RSV Immunization Patients Under 20 months Aged Out No longer eligible based on patient's age to complete this topic Varicella Vaccines Aged Out No longer eligible based on patient's age to complete this topic Insurance [employer] MEDICARE ADVANTAGE Care Teams Mechanical Research Engineer Relationship Specialty Start Date End Date Kennedi Galvan MD PCP - General Internal Medicine 08/19/17
--- OUTSIDE RECORDS SUMMARY | 2024-09-15 17:41 | XMS_ITS | Encounter Summary ---
Author Organization [facility] Address [address] [place] [address] Care Team Providers Care Field Crop Ii Farmworker Name Role Phone Kennedi Galvan MD Primary Care Provider [phone] Reason for Referral * Imaging (Routine) - Pending Review Specialty Diagnoses / Procedures Referred By Contac t Referred To Contact Radiology Diagnoses Malignant neoplasm of unspecified site of left female breast (CMS/HCC V24, CMS/HCC V28) Procedures PET CT Skull to Mid Thigh Initial Deana Najera MD [address] ATTN: HEMATOLOGY/[place] [address] Phone: tel: fax: [facility] Referral ID Status Reason Start Date Expiration Date V isits Requested Visits Authorized [id number] Pending Review 09/10/2024 09/10/2025 1 1 Reason for Visit * Imaging (Routine) - Pending Review Specialty Diagnoses / Procedures Referred By Darrell arteaga Referred To Contact Radiology Diagnoses Malignant neoplasm of unspecified site of left female breast (CMS/HCC V24, CMS/HCC V28) Procedures PET CT Skull to Mid Thigh Initial [facility] [address] [facility] ATTN: H[facility]ATOLOGY/[place] [address] Phone: tel: fax: [facility] Referral ID Status Reason Start Date Expiration Date V isits Requested Visits Authorized [id number] Pending Review 09/10/2024 09/10/2025 1 1 Encounter Details Date Type Department Care Team (Latest Contact Info) Description 09/11/2024 12:40 PM EDT Hospital Encounter [facility] PET Scan [address] [place] [address] Malignant neoplasm of unspecified site of left female breast (CMS/HCC V24, CMS/HCC V28) Social History Tobacco Use Types Packs/Day Years Used Date Smoking Tobacco: Never Assessed Comments Unknown Sex and Gender Information Value Date Recorded Sex Assigned at Not on file Legal Sex Female 11:20 PM EST Gender Identity Not on file Sexual Orientation Not on file documented as of this encounter Plan of Treatment Pending Results Name Type Priority Associated Diagnoses Date /Time PET CT Skull to Mid Thigh Initial Imaging Routine Malignant neoplasm of unspecified site of left female breast (CMS/HCC V24, CMS/HCC V28) 09/11/2024 2:40 PM EDT Scheduled Orders Name Type Priority Associated Diagnoses Orde r Schedule PET CT Skull to Mid Thigh Initial Imaging Routine Malignant neoplasm of unspecified site of left female breast (CMS/HCC V24, CMS/HCC V28) Once for 1 Occurrences starting 09/11/2024 until 09/11/2024 documented as of this encounter Visit Diagnoses Diagnosis Malignant neoplasm of unspecified site of left female breast (CMS/HCC V24, CMS/HCC V28) documented in this encounter Administered Medications Inactive Administered Medications - up to 3 most recent administrations Medication Order MAR Action Action Date Dose Rate Site F-18 FDG pet diag radio-isotope injection 12.1 millicurie 12.1 millicurie, intravenous, Once in imaging, Starting on Sat09/11/24 at 1315, For 1 dose Given 09/11/2024 1:05 PM EDT 12.1 millicuries Right Antecubital documented in this encounter Orders Medications Ordered That Aydin ht Not Have Been Administered Count Last Ordered Date First Ordered Date F-18 FDG pet diag radio-isot ope injection 12.1 millicurie 1 09/11/2024 documented in this encounter Care Teams Field Crop Ii Farmworker Relationship Specialty Start Date End Date Kennedi Galvan MD PCP - General Internal Medicine 08/19/17 documented as of this encounter
== END 2024-09-16 08:46 | disposition home or self-care (01) ==
LOC: HO.HGS 14:48
PROVIDERS: PCP Internal Medicine; Visit Provider Surgery
DX: C50.912 Malignant neoplasm of unspecified site of left female breast (principal)
CPT/HCPCS: 99214

== ENCOUNTER → 2024-09-15 14:47 | Outpatient (BNVA) | payer MEDICARE, SELFPAY | PROVIDERS: PCP Internal Medicine; Visit Provider Surgery | DX: C50.912 Malignant neoplasm of unspecified site of left female breast (principal) | CPT/HCPCS: 99212 ==

== ENCOUNTER 2024-09-16 12:22 | Day surgery (SDC) | payer MEDICARE, SELFPAY ==
--- OUTSIDE RECORDS SUMMARY | 2024-09-10 14:05 | XMS_ITS | Clinical Summary ---
Author Organization [facility] Address [address] [place] [address] Phone Care Team Providers Care Metallurgy Laboratory Technician Name Role Phone Kennedi Galvan MD Primary Care Provider [phone] Social History Tobacco Use Types Packs/Day Years Used Date Smoking Tobacco: Never Assessed Comments Unknown Sex and Gender Information Value Date Recorded Sex Assigned at Not on file Legal Sex Female 11:20 PM EST Gender Identity Not on file Sexual Orientation Not on file Plan of Treatment Upcoming Encounters Date Type Department Care Team (Late st Contact Info) Description 09/11/2024 1:00 PM EDT Appointment [facility] PET Scan [address] [place] [address] Health Maintenance Due Date Last Done Comments Breast Cancer Screening 1955 DTaP,Tdap,and Td Vaccines (1 - Tdap) 1976 Pneumococcal Vaccine: 50+ Ye ars (1 of 1 - PCV) 10/19/2007 Zoster Vaccines (1 of 2) 10/19/2007 COVID-19 Vaccine ( - 2023-2 5 season) 2024 Influenza Vaccine (Season Ended) 2025 RSV Immunization Adult Patie nts (1 - 1-dose 75+ series) 2032 HIB Vaccines Aged Out No longer eligi ble based on patient's age to complete this topic HPV Vaccines Aged Out No longer eligi ble based on patient's age to complete this topic Hepatitis A Vaccines Aged Out No long er eligible based on patient's age to complete this topic Hepatitis B Vaccines Aged Out No long er eligible based on patient's age to complete this topic IPV Vaccines Aged Out No longer eligi ble based on patient's age to complete this topic MMR Vaccines Aged Out No longer eligi ble based on patient's age to complete this topic Meningococcal ACWY Vaccine Aged Out N o longer eligible based on patient's age to complete this topic Meningococcal B Vaccine Aged Out No l onger eligible based on patient's age to complete this topic RSV Immunization Patients Un chato 20 months Aged Out No longer eligible b ased on patient's age to complete this topic Varicella Vaccines Aged Out No longer eligible based on patient's age to complete this topic Insurance [employer] MEDICARE ADVANTAGE Care Teams Metallurgy Laboratory Technician Relationship Specialty Start Date End Date Kennedi Galvan MD PCP - General Internal Medicine 08/19/17
[2024-09-16] VITALS (15 sets, daily range): BP systolic 126–143; BP diastolic 70–89; PULSE 61–78; RESP 12–20; TEMP 36.3–36.8; O2SAT 96–98; BMI 31.6
--- NOTE | ~2024-09-16 | IR_ITS ---
PROCEDURE: IR INSERTION OF TUNNEL CATHETER CLINICAL HISTORY: Breast cancer. The patient presents to interventional radiology for placement of a port for chemotherapy. PROCEDURES: 1. Real-time ultrasound-guided access into the right internal jugular vein after documentation of selected vessel patency, and permanent image storing in the patient records. 2. Placement of a 6.6 [place] single-lumen port. CLINICIAN: Jonathan Wynn NP MEDICATIONS: -Antibiotics: Ancef 2g -For additional details, please see nursing flowsheet. Complications: None. Estimated blood loss: <5 ml Specimens: None. Contrast: None. Fluoroscopy time: 1.3 min MODERATE SEDATION TIME: 30 min PROCEDURE NOTE: The procedure, risks, benefits, and alternatives were carefully explained to the patient and written informed consent was obtained. The patient was placed supine on the fluoroscopy table. A timeout was performed. The right neck and chest was prepped and draped in usual sterile fashion. Maximum barrier technique was utilized. Local anesthesia was administered to the access site with 1% lidocaine. Under ultrasound guidance, the right internal jugular vein was accessed with a 5 fr micropuncture set. A 0.035 in wire was advanced into the IVC. A peel-away sheath was advanced over the wire and into the SVC, and the wire was removed. Next, subcutaneous lidocaine was administered to the chest. The port pocket was created after the skin incision, utilizing blunt dissection. Using blunt dissection, a subcutaneous tunnel was created that connects from the port pocket to the venotomy site. Through the peel-away sheath, the 6.6 [place] port catheter was placed. The catheter position was verified with fluoroscopy to be at the superior vena cava/right atrial junction. The port was connected to the catheter and was placed in the pocket. The port incision site was closed with interrupted 3-0 Vicryl subcutaneous sutures and surgical glue. Prior to closing the skin, 1 g of Ancef solution was placed in the pocket. The port was tested, flushed, and packed with heparin per routine protocol. The patient tolerated the procedure well. The patient was stable after the procedure and was transferred to the PACU. The procedure was performed under moderate sedation and with a dedicated nurse with continuous monitoring of vital signs. A permanent image of the ultrasound the neck and fluoroscopic image of the chest was saved and sent to PACS. FINDINGS: 1. Patent right internal jugular vein 2. Placement of a 6.6 [place] single lumen port. 3. Port flushes and aspirates very well with a 10 mL syringe. No pneumothorax. IR/IR cvc insert tunnel w prt/ornamental metalwork designer IMPRESSION: Placement of a 6.6 [place] single-lumen port. PLAN: - The patient will be discharged home when stable by sedation protocol. - Port may be used immediately. This procedure was performed by Jonathan Wynn NP and directly supervised by Tj Lopez MD. Electronically signed by: Lauri Lopez MD 10/01/2024 01:51 PM EDT
[2024-09-16 13:33] LABS: Glucose, Whole Blood 121 mg/dL (60-115)
[2024-09-16 13:41] LABS: Prothrombin Time 12.1 SEC (10.9-12.4)
[2024-09-16 13:51] LABS: Anion Gap 12 (12-20); Blood Urea Nitrogen 10 mg/dL (9-16); Calcium 9.9 mg/dL (8.4-10.2); Carbon Dioxide 25 mmol/L (22-29); Chloride 109 mmol/L (96-108); Creatinine Clr Calc Pharmacy 96.6; Estimated Glomerular Filt Rate > 60; Glucose Random 120 mg/dL (60-115); Potassium 4.4 mmol/L (3.3-5.1); Sodium 142 mmol/L (135-145)
[2024-09-16] MEDS: ceFAZolin Sodium/Dextrose,Iso 2 GM/50 ML PIGGYBACK IV (14:30)
[2024-09-16] MEDS: fentaNYL citrate/PF 100 MCG/2 ML VIAL 50 MCG IVPUSH ×2 (15:13→15:30)
[2024-09-16] MEDS: Midazolam HCl 2 MG/2 ML VIAL 1 MG IVPUSH (15:13)
== END 2024-09-16 16:48 | disposition home or self-care (01) ==
PROVIDERS: Radiology Diagnostic Radiology; PCP Internal Medicine; Visit Provider Internal Medicine Medical Oncology
DX: Z45.2 Encounter for adjustment and management of vascular access device (principal); C50.512 Malignant neoplasm of lower-outer quadrant of left female breast; C77.3 Secondary and unspecified malignant neoplasm of axilla and upper limb lymph nodes; Z17.0 Estrogen receptor positive status [ER+]; Z17.21 Progesterone receptor positive status; Z17.31 Human epidermal growth factor receptor 2 positive status; E83.110 Hereditary hemochromatosis; F33.9 Major depressive disorder, recurrent, unspecified; Z98.890 Other specified postprocedural states; Z87.891 Personal history of nicotine dependence; L23.1 Allergic contact dermatitis due to adhesives
CPT/HCPCS: 36415; 36561; 80048; 82947; 85610; 99152; 99153; C1769; C1788; J0690; J1642; J1644; J2003; J2250; J3010

== ENCOUNTER → 2024-09-16 14:31 | Outpatient (BNV) | payer MEDICARE, SELFPAY | PROVIDERS: PCP Internal Medicine | DX: C50.919 Malignant neoplasm of unspecified site of unspecified female breast (principal) | CPT/HCPCS: 36561; 76937; 77001; 99152 ==

== ENCOUNTER 2024-10-01 07:47 | Outpatient (REF) | payer MEDICARE, SELFPAY ==
--- NOTE | ~2024-10-01 | US_ITS ---
EXAMINATION: Ultrasound GUIDED RFID LOCALIZATION BREAST, LEFT CLINICAL INFORMATION: Left breast biopsy proven invasive ductal carcinoma at 4:00 here for RFID tag localization. COMPARISON: Priors on PACS. TECHNIQUE NEEDLE LOC: Proper informed consent is obtained from the patient after discussion of the procedure, potential risks and complications, and alternatives including declining the procedure today. Patient was given an opportunity for questions. The patient appeared to understand. The patient consented to the procedure and signed the consent form. GUIDANCE: Ultrasound. APPROACH: Lateral. TARGET: Clip and solid irregular mass in the left breast at 4:00.. ANESTHESIA: carbonated lidocaine. LOCALIZATION SYSTEM: [address] LOCallizer Wire-Free Guidance System with 12g needle applicator. RADIOFREQUENCY TAG: ID # [id number] RF Tag ID confirmed with LOCalizer Guidance System prior to placement. The skin is prepped and local anesthesia administered. The needle is positioned and RFID tag deployed. Final images demonstrate the LOCalizer RF tag to reside within the mass adjacent to the marker clip. The patient tolerated the procedure well and had no immediate complications. Dressing placed and home instructions reviewed. US/US Breast RF Tag Device Left IMPRESSION: -Status post left breast RFID localization. Electronically signed by: Mavis Miguel DO 10/01/2024 10:25 AM EDT
--- NOTE | ~2024-10-01 | MM_ITS ---
EXAMINATION: Ultrasound GUIDED RFID LOCALIZATION BREAST, LEFT CLINICAL INFORMATION: Left breast biopsy proven invasive ductal carcinoma at 4:00 here for RFID tag localization. COMPARISON: Priors on PACS. TECHNIQUE NEEDLE LOC: Proper informed consent is obtained from the patient after discussion of the procedure, potential risks and complications, and alternatives including declining the procedure today. Patient was given an opportunity for questions. The patient appeared to understand. The patient consented to the procedure and signed the consent form. GUIDANCE: Ultrasound. APPROACH: Lateral. TARGET: Clip and solid irregular mass in the left breast at 4:00.. ANESTHESIA: carbonated lidocaine. LOCALIZATION SYSTEM: [employer] LOCallizer Wire-Free Guidance System with 12g needle applicator. RADIOFREQUENCY TAG: ID # [id number] RF Tag ID confirmed with LOCalizer Guidance System prior to placement. The skin is prepped and local anesthesia administered. The needle is positioned and RFID tag deployed. Final images demonstrate the LOCalizer RF tag to reside within the mass adjacent to the marker clip. The patient tolerated the procedure well and had no immediate complications. Dressing placed and home instructions reviewed. MM/MM tomosynthesis diagnostic LT IMPRESSION: -Status post left breast RFID localization. Electronically signed by: Mavis Miguel DO 10/01/2024 10:25 AM EDT
--- OUTSIDE RECORDS SUMMARY | 2024-10-01 07:49 | XMS_ITS | Clinical Summary ---
Author Organization [facility] Address [address] [place] [address] Phone Care Team Providers Care Certified Pharmacy Technician Name Role Phone Kennedi Galvan MD Primary Care Provider Encounters Date Type Department Care Team Description 09/11/2024 12:40 PM EDT - 09/11/2024 11:59 PM EDT Hospital Encounter [facility] PET Scan [address] [place] [address] Malignant neoplasm of unspecified site of left female breast (CMS/HCC V24, CMS/HCC V28) Discharge Disposition: Home or Self Care from Last 3 Months Social History Tobacco [...] of unspecified site of left female breast ([facility] V24, [facility] V28) from Last 3 Months Results * [...] Signed Date: 09/16/2024 15:43 ET Workstation ID: [id number] Transcribed By: Self Edit Transcribed Date: 09/16/2024 [...] Signed Date: 09/16/2024 15:43 ET Workstation ID: [id number] Transcribed By: Self Edit Transcribed Date: 09/16/2024 15:38 ET Deana Najera MD IMG [place] PROCEDURES Final Result from Last 3 Months Insurance [employer] MED[employer]VANTAGE Care Teams Certified Pharmacy Technician Relationship Specialty Start Date End Date Kennedi Galvan MD PCP - General Internal Medicine 08/19/17
[2024-10-01] MEDS: Sodium Bicarbonate 8.4% 50 MEQ/50 ML VIAL SUBCUT (08:42)
[2024-10-01] MEDS: Lidocaine HCl 1 % 20 ML VIAL 9 ML SUBCUT (08:43)
== END 2024-10-01 07:48 | disposition home or self-care (01) ==
LOC: HO.MAMMO 07:47
PROVIDERS: PCP Internal Medicine; Visit Provider Internal Medicine
DX: R92.8 Other abnormal and inconclusive findings on diagnostic imaging of breast (principal)
CPT/HCPCS: 19285; 77061; 77065; C1819; J2003

== ENCOUNTER → 2024-10-01 08:00 | Outpatient (BNV) | payer MEDICARE, SELFPAY | PROVIDERS: PCP Internal Medicine; Visit Provider Internal Medicine | DX: C50.112 Malignant neoplasm of central portion of left female breast (principal) | CPT/HCPCS: 19285; 77065 ==

== ENCOUNTER 2024-10-05 06:22 | Day surgery (SDC) | payer MEDICARE, SELFPAY ==
--- OUTSIDE RECORDS SUMMARY | 2024-09-17 14:32 | XMS_ITS | Clinical Summary ---
Author Organization [facility] Address [address] [place] [address] Phone Care Team Providers Care Cath Lab Radiological Technologist Name Role Phone Kennedi Galvan MD Primary Care Provider [phone] Encounters Date Type Department Care Team Description 09/11/2024 12:40 PM EDT Hospital Encounter [facility] PET Scan [address] [place] [address] Malignant neoplasm of unspecified site [...] on patient's age to complete this topic Procedures Procedure Name Priority Date/Time Associated Diagnosis Comments PET CT SKULL TO MID THIGH INITIAL Routine 09/11/2024 2:40 PM EDT Malignant neoplasm of unspecified site of left female breast ([facility] V24, [facility] V28) from Last 3 Months Results * PET CT Skull to Mid Thigh Initial (09/11/2024 2:40 PM EDT) Anatomical Region Laterality Modality Body Radiographic Angelique ging 09/16/2024 3:38 PM EDT Impressions 09/16/2024 3:43 PM EDT Metabolically active left breast lesion and solitary left axillary node. No PET/CT evidence of distant metastases. -------- FINAL REPORT -------- Dictated By: Nils Clifton Dictated Date: 09/16/2024 15:38 ET Assigned Physician: Nils Clifton Reviewed and Electronically Signed By: Nils Clifton Signed Date: 09/16/2024 15:43 ET Workstation ID: [id number] Transcribed By: Self Edit Transcribed Date: 09/16/2024 15:38 ET Narrative 09/16/2024 3:43 PM EDT INDICATION: Breast carcinoma, initial treatment strategy Prior relevant studies: None Radiopharmaceutical: 12.1 mCi of F-18 FDG IV. Blood glucose: 114 mg/dl. PROCEDURE: Routine body FDG PET-CT imaging was performed from the skull base to the proximal/mid thighs and reconstructed in axial, coronal, and sagittal planes at the computer workstation with fused data from both the PET imaging study and attenuation correction CT. The CT portion of the examination was done strictly for attenuation correction and is not a true diagnostic CT examination. CTDI: 9.34 mGy FINDINGS: HEAD AND NECK: No abnormal FDG activity. THORAX: No abnormal FDG activity. Focal FDG activity corresponding to nodule in the inferior lateral aspect of the left breast with SUV max of 2.7. Mild FDG focal activity associated with solitary small left axillary lymph node with SUV max of 2.6. ABDOMEN/PELVIS: No abnormal FDG activity. MUSCULOSKELETAL: No abnormal FDG activity. Procedure Note Nils Clifton MD - 09/16/2024 INDICATION: Breast carcinoma, initial treatment strategy Prior relevant studies: None Radiopharmaceutical: 12.1 mCi of F-18 FDG IV. Blood glucose: 114 mg/dl. PROCEDURE: Routine body FDG PET-CT imaging was performed from the skullbase to the proximal/mid thighs and reconstructed in axial, coronal, andsagittal planes at the computer workstation with fused data from both thePET imaging study and attenuation correction CT. The CT portion of theexamination was done strictly for attenuation correction and is not a truediagnostic CT examination. CTDI: 9.34 mGy FINDINGS: HEAD AND NECK: No abnormal FDG activity. THORAX: No abnormal FDG activity. Focal FDG activity corresponding to nodule in the inferior lateral aspectof the left breast with SUV max of 2.7. Mild FDG focal activity associated with solitary small left axillary lymphnode with SUV max of 2.6. ABDOMEN/PELVIS: No abnormal FDG activity. MUSCULOSKELETAL: No abnormal FDG activity. IMPRESSION: Metabolically active left breast lesion and solitary left axillary node.No PET/CT evidence of distant metastases. -------- FINAL REPORT -------- Dictated By: Nils Clifton Dictated Date: 09/16/2024 15:38 ET Assigned Physician: Nils Clifton Reviewed and Electronically Signed By: Nils Clifton Signed Date: 09/16/2024 15:43 ET Workstation ID: [id number] Transcribed By: Self Edit Transcribed Date: 09/16/2024 15:38 ET Deana Najera MD IMG NM PROCEDURES Final Result from Last 3 Months Insurance [employer] MEDICARE ADVANTAGE Care Teams Cath Lab Radiological Technologist Relationship Specialty Start Date End Date Kennedi Galvan MD PCP - General Internal Medicine 08/19/17
--- OUTSIDE RECORDS SUMMARY | 2024-09-17 14:32 | XMS_ITS | Encounter Summary ---
Author Organization [facility] Address [address] [place] [address] Care Team Providers Care Hospice Executive Director Name Role Phone Kennedi Galvan MD Primary Care Provider [phone] Reason for Referral * Imaging (Routine) - Pending Review Specialty Diagnoses / Procedures Referred By Contac t Referred To Contact Radiology Diagnoses Malignant neoplasm of unspecified site of left female breast (CMS/HCC V24, CMS/HCC V28) Procedures PET CT Skull to Mid Thigh Initial Deana Najera MD [address] ATTN: HEMATOLOGY/[place] [address] Phone: tel: fax: [facility] Referral ID Status Reason Start Date Expiration Date V isits Requested Visits Authorized [id number] Pending Review 09/10/2024 09/10/2025 1 1 Reason for Visit * Imaging (Routine) - Pending Review Specialty Diagnoses / Procedures Referred By Darrell arteaga Referred To Contact Radiology Diagnoses Malignant neoplasm of unspecified site of left female breast (CMS/HCC V24, CMS/HCC V28) Procedures PET CT Skull to Mid Thigh Initial [facility] N[facility] [address] [facility] [address] [facility] ATTN: HEMATOLOGY/[place] [address] Phone: tel: fax: [facility] Referral ID Status Reason Start Date Expiration Date V isits Requested Visits Authorized [id number] Pending Review 09/10/2024 09/10/2025 1 1 Encounter Details Date Type Department Care Team (Latest Contact Info) Description 09/11/2024 12:40 PM EDT Hospital Encounter [facility] PET Scan [address] [place] [address] Malignant neoplasm of unspecified site [...] as of this encounter Plan of Treatment Not on file documented as of this encounter Procedures Procedure Name Priority Date/Time Associated Diagnosis Comments PET CT SKULL TO MID THIGH INITIAL Routine 09/11/2024 2:40 PM EDT Malignant neoplasm of unspecified site of left female breast (CMS/HCC V24, CMS/HCC V28) documented in this encounter Results * PET CT Skull to Mid [...] Nils Clifton Reviewed and Electronically Signed By: Nisl Clifton Signed Date: 09/16/2024 15:43 ET Workstation ID: [id number] Transcribed By: Self Edit Transcribed Date: 09/16/2024 [...] Signed Date: 09/16/2024 15:43 ET Workstation ID: [id number] Transcribed By: Self Edit Transcribed Date: 09/16/2024 15:38 ET Deana Najera MD IM NM PROCEDURES Final Result documented in this encounter Visit Diagnoses Diagnosis Malignant neoplasm [...] in this encounter Orders Medications Ordered That Adyin ht Not Have Been Administered Count Last Ordered Date First Ordered Date F-18 FDG pet diag radio-isot ope injection 12.1 millicurie 1 09/11/2024 documented in this encounter Care Teams Hospice Executive Director Relationship Specialty Start Date End Date Kennedi Galvan MD PCP - General Internal Medicine 08/19/17 documented as of this encounter
[2024-10-01 08:53] VITALS: BMI 31.6
--- NOTE | 2024-10-01 12:36 | HO.ANESPROP2 ---
Documented by User: Elysia Zapata NP 10/01/24 12:39 HPI - Anesthesia Eval Consult details Narrative: 68yo F for Left Breast Lumpectomy w/LOCalizer, [place] Node Biopsy Cirrhosis d/t hemachromatosis - therapeutic phlebs q4 weeks, last 07/2024 Port a cath in situ PMFSH Active Problems Active Problems: All Active Problems Invasive ductal carcinoma of left breast (Acute) Abnormal ultrasound of breast (Acute) Abnormal mammogram of left breast (Acute) Left breast mass (Acute) Colon cancer screening (Acute) Teeth clenching (Acute) Ear pain, right (Acute) Diabetes mellitus type 2 in obese (Acute) Status post total right knee replacement (Acute) Impacted cerumen, bilateral (Acute) Pre-op evaluation (Acute) Infection of breast, left (Acute) Cellulitis of left breast (Acute) Medicare annual wellness visit, subsequent (Acute) Obesity due to excess calories (Acute) Pain management (Acute) Anxiety, generalized (Acute) Cirrhosis due to hemochromatosis (Acute) Tubular adenoma of colon (Acute) Menopause (Acute) Breast screening (Acute) Encounter for routine gynecological examination (Acute) Primary osteoarthritis of right knee (Acute) Knee pain (Acute) Skin growth (Acute) Impacted cerumen, right ear (Acute) Abnormal abdominal ultrasound (Acute) PAT (paroxysmal atrial tachycardia) (Acute) Otitis media (Acute) Abnormal ultrasound of abdomen (Acute) Hx of colonoscopy (Acute 10/07/18) Osteoarthritis (Acute) Depression, major, recurrent (Acute) Hemochromatosis (Acute) Past Medical History Medical History Anxiety Breast cancer Port-A-Cath in place 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, major, recurrent Rotator cuff impingement syndrome of right shoulder Osteoarthritis History of PAT (paroxysmal atrial tachycardia) Hemochromatosis Family History Family History Father HTN (hypertension) Lung cancer Mother Osteoporosis Sister Hemochromatosis Paternal Grandfather Skin cancer Bone cancer Maternal Grandmother Breast cancer Other Mental health disorder Family history of problems with anesthesia: No Surgical History Surgical History Hx of total knee replacement Hx of hemorrhoidectomy Hx of cholecystectomy History of excision of lesion (08/16/14) History of partial hysterectomy (~2009) Hx of toe surgery (~1995) Hx of colonoscopy (10/07/18) Hx of arthroplasty (10/09/16) History of Problems with Anesthesia: No Social History Social History Household Members: None Housing: Apartment Are you a primary wild animal caretaker to a significant other at home: No Do you presently have visiting nurse or other home services: No Alcohol intake: current Alcohol intake frequency: holidays/special occasions only Alcohol type: wine Patient Tobacco Use Status: Former Tobacco user Tobacco use type: Cigarette Cigarette Packs Per Day: 2 Years Smoked: 29 e-Cigarette/Vaping Use: Never Used Second Hand Smoke Exposure: No Use of substances other than those prescribed or required for medical reasons: No Have you been hit, kicked, punched, or otherwise hurt by someone within the past year? If so, by whom?: No Are you DNR?: No Advance Directives: No Advance Directives Information Provided: Yes Advance Directives on File: No Advance Directives Date on File: 10/08/16 Patient : No : No Poor oral hygiene: No service: No Current occupational status: retired and disabled Current occupation: right handed Cognitive needs: No Hearing needs: No Vision needs: Yes Meds Allergies Allergy/AdvReac Type Severity Reaction Status Date / Time adhesive tape [ADHESIVE TAPE] Allergy Intermediate rednes Verified 09/21/24 16:34 from band-aids Home Medications ?Medication ?Instructions ?Recorded ?Confirmed ?Last Taken ?Type multivitamin 1 tab PO QAM 10/01/24 10/01/24 Unknown History vitamin E 268 mg (400 unit) capsule 268 mg PO DAILY 10/01/24 10/01/24 Unknown History Exam Height,Weight and Vital Signs: Height 5 ft 9 in Weight 97.069 kg Pertinent Lab Results Pertinent Lab Results: Laboratory Tests 08/28/24 09/16/24 12:23 13:21 WBC 4.4 L Hgb 11.9 L Hct 36.5 L Plt Count 176 Sodium 142 Potassium 4.4 Chloride 109 H Carbon Dioxide 25 BUN 10 Creatinine 0.71 Narrative Narrative: ECHO 2024 Conclusions: - 1. Normal LV ejection fraction 60 65% with grade 1 diastolic dysfunction 2. Normal cardiac valvular Dopplers 3. No gross pericardial effusion Assessment and Plan Assessment Anesthesia Assessment: Chart Reviewed Final Anesthetic Review Family History of Problems with Anesthesia: No History of Problems with Anesthesia: No Documented by User: Kelly Newton MD 10/05/24 09:43 [facility] Past Medical History Medical History Anxiety Breast cancer Port-A-Cath in place 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, major, recurrent Rotator cuff impingement syndrome of right shoulder Osteoarthritis History of PAT (paroxysmal atrial tachycardia) Hemochromatosis Family History Family History Father HTN (hypertension) Lung cancer Mother Osteoporosis Sister Hemochromatosis Paternal Grandfather Skin cancer Bone cancer Maternal Grandmother Breast cancer Other Mental health disorder Surgical History Surgical History Hx of total knee replacement Hx of hemorrhoidectomy Hx of cholecystectomy History of excision of lesion (08/16/14) History of partial hysterectomy (~2009) Hx of toe surgery (~1995) Hx of colonoscopy (10/07/18) Hx of arthroplasty (10/09/16) Social History Social History Household Members: None Housing: Apartment Are you a primary wild animal caretaker to a significant other at home: No Do you presently have visiting nurse or other home services: No Alcohol intake: current Alcohol intake frequency: holidays/special occasions only Alcohol type: wine Patient Tobacco Use Status: Former Tobacco user Tobacco use type: Cigarette Cigarette Packs Per Day: 2 Years Smoked: 29 e-Cigarette/Vaping Use: Never Used Second Hand Smoke Exposure: No Use of substances other than those prescribed or required for medical reasons: No Have you been hit, kicked, punched, or otherwise hurt by someone within the past year? If so, by whom?: No Are you DNR?: No Advance Directives: No Advance Directives Information Provided: Yes Advance Directives on File: No Advance Directives Date on File: 10/08/16 Patient : No : No Poor oral hygiene: No service: No Current occupational status: retired and disabled Current occupation: right handed Cognitive needs: No Hearing needs: No Vision needs: Yes Meds Allergies Allergy/AdvReac Type Severity Reaction Status Date / Time adhesive tape [ADHESIVE TAPE] Allergy Intermediate rednes Verified 09/21/24 16:34 from band-aids Home Medications ?Medication ?Instructions ?Recorded ?Confirmed ?Last Taken ?Type multivitamin 1 tab PO QAM 10/01/24 10/01/24 Unknown History vitamin E 268 mg (400 unit) capsule 268 mg PO DAILY 10/01/24 10/01/24 Unknown History Exam Airway Mallampati Class: II TM Dist: >3cm Neck ROM: Full Heart: rrr Lungs: cta Assessment and Plan Assessment Anesthesia Assessment: Anesthesia Plan Discussed Final Anesthetic Review NPO: Yes ASA Class: III Final Preanesthetic Review: No Changes in Pt Med Stat, Meds/Allgs Chart Reviewed, Consent Obtained/Reviewed and Anes Risks/Benef Reviewed Patient Risk: Intermediate Procedure Risk: Intermediate Anesthetic Plan Anesthetic Plan: GA Disposition: Standard PACU
[2024-10-05] VITALS (12 sets, daily range): BP systolic 119–134; BP diastolic 52–74; PULSE 61–75; RESP 16–18; TEMP 36.3–36.7; O2SAT 92–98
--- NOTE | ~2024-10-05 | NM_ITS ---
EXAMINATION: Nuclear medicine sentinel node with imaging. CLINICAL INDICATION: Left breast cancer. COMPARISON: Ultrasound-guided RFID localization left breast. 10/01/2024. TECHNIQUE: Following explaining left breast sentinel node procedure, benefits and risk by surgeon Dr. Christopher, a written consent was obtained. 4% and lidocaine cream was applied on the left breast areola 40 minutes prior to the exam. Patient was placed on ultrasound stretcher and the area around the left breast was cleaned and draped in aseptic manner in nuclear medicine department. 0.125 mCi of lymphoseek divided in 4 equal doses was injected subdermally in 4 quadrants around the left breast areola. Imaging was obtained 30 and 60 and its later. Patient tolerated procedure extremely well. FINDINGS/ NM/NM sentinel node w imaging IMPRESSION: There is focal activity seen on the left breast areola. No abnormal isotope activity seen in the left axilla, medial chest or supraclavicular of fossa. Electronically signed by: Eliud Meza MD 10/05/2024 01:54 PM EDT
--- NOTE | ~2024-10-05 | MM_ITS ---
Left breast specimen radiographs of the left axilla demonstrates the butterfly marker clip within the specimen along with the enlarged lymph node. Left breast specimen radiograph demonstrates the tag and the coil clip within the specimen. Electronically signed by: Mavis Miguel DO 10/05/2024 11:56 AM EDT
[2024-10-05] MEDS: Lidocaine 4 % Cream KIT 1 APPL TOPICAL (07:00)
[2024-10-05] MEDS: Lactated Ringers 1,000 ML 100 ML IVCONT (07:34)
--- NOTE | 2024-10-05 10:17 | MHC.SHP ---
Pre-Procedural Eval Section A - 24 Hr Update-Section A only Date of Service: 10/05/24 The patient is an INPATIENT: No Changes since office visit: Yes Patient answered all questions; No Cold of Flu in the past 2 weeks, No New Medical Problems and No Changes in Medication The patient has been examined within 24 hours of the surgical procedure. The History & Physical has been completed within 30 days and I have reviewed it.: No Section B - Complete if H&P > 30 days Chief Complaint: Malignant neoplasm of unspecified site of left fem Details of Present Illness: Patient reports no symptoms Relevant Family History (Specify if Yes): No Relevant Social History: None Present Medications: see Short Stay Collaborative assessment Medical History: No relevant PMH History of Previous Operations: No relevant previous surgery Allergies: Allergies Allergy/AdvReac Type Severity Reaction Status Date / Time adhesive tape [ADHESIVE TAPE] Allergy Intermediate rednes Verified 09/21/24 16:34 from band-aids Review of Systems Sugical H&P ROS: Negative: Constitution, Cardiovascular, Respiratory, Neurological, Psychiatric, Hem-Onc, Gastrointestinal, Genitourinary, Musculoskeletal and Integumentary Exam Surgical H&P Exam: Normal: HEENT, Normal: Heart, Normal: Lungs, Normal: Extremities, Normal: Abdomen and Normal: Skin Plan Diagnosis/Plan: Unchanged I have reviewed the history and physical and performed a pertinent physical examination on my patient. No changes have occurred unless specified. Time Spent With Patient Time: Total time managing care of this patient today ____ minutes.
[2024-10-05] MEDS: ceFAZolin Sodium/Dextrose,Iso 2 GM/50 ML PIGGYBACK IV (11:00)
[2024-10-05] MEDS: Acetaminophen 1,000 MG/100 ML PIGGYBACK 400 MG IV (11:15)
--- NOTE | 2024-10-05 12:22 | P.OP_ITS ---
Operative Note Operative Note Date of Service: 10/05/24 Narrative: Preoperative diagnosis: Invasive ductal carcinoma left breast with left axillary lymph node metastasis Postoperative diagnosis: Same Procedure: Left breast lumpectomy with localizer, left axillary sentinel node biopsy Surgeon: Mike Christopher MD Shipping Clerk Crating: Sadie Jauregui PA-C; DINA Gomez Anesthesia: General LMA Indications for procedure: 68-year-old female patient presenting with recent diagnosis of left breast invasive ductal carcinoma found to have an enlarged lymph node on ultrasound, positive for metastasis. Operative findings: Lumpectomy specimen with marking clip and RF ID tag. Left axillary sentinel node x-ray reveals butterfly clip. Gross pathology revealed close margins to the inferior and anterior margins. A revision of the anterior and inferior margins was therefore performed Specimen:1. Left breast lumpectomy, 2. [place] node 1, 3. [place] node 2, 4. Non sentinel node 1, 5. Anterior margin revision, 6. Inferior margin revision. Estimated blood loss: 10 mL Complications: None Procedure details: Patient was brought to the OR and placed in a supine position. After administering general anesthesia the patient's left breast was prepped with ChloraPrep and draped in a sterile fashion. A surgical time-out was called the consent confirmed. Patient received preoperative antibiotics and Venodyne boots were in place. Local anesthesia consisting of 0.5% Sensorcaine was infiltrated in the left lower outer quadrant. Using the localizer as a guide a curvilinear incision was made in the lower outer quadrant and carried out through subcutaneous tissue. Superior and inferior skin flaps were then created using electrocautery. Again using the localizer as a guide a core of tissue surrounding the localizer clip was then performed beginning with the superior margin, continue with the medial margin, lateral margin, posterior margin and then inferior margin. The specimen was marked with a long suture on the lateral margin, short suture on the superior margin, and looped suture in the posterior margin. Specimen x-ray confirmed the marking clip and localizer clip within the specimen. This was sent to pathology for further examination. Attention was then directed to the left axilla. No activity was noted on the nuclear medicine test however examination with the gamma probe did reveal evidence of activity in the left axilla. A curvilinear incision was made at the lower end of the axilla. The dissection was continued down through subcutaneous tissue, past clavipectoral fascia and into the axillary compartment. Again using the gamma probe as a guide an area of increased radio activity was identified in the lower axilla. This was grasped with a using a Allis clamp. Gentle dissection with a combination of blunt dissection and electrocautery was then used to identify an enlarged lymph node with radio activity then. This was excised using electrocautery. A specimen x-ray was performed and the marking clip noted within the specimen, confirming that this was the previously biopsied lymph node. This was sent as sentinel node 1. A additional large lymph node was identified by palpation and excised using electrocautery. No radio activity was noted in this enlarged lymph node. This was sent as non sentinel node 1. Additional scanning of the axilla did reveal a 2nd hot node in the upper axilla. This was gently dissected again using a combination of blunt and electrocautery dissection. A 2nd sentinel node was identified and sent as sentinel node 2. No additional palpable nodes or radioactive nodes were identified. Pathology results revealed close margins at the inferior and anterior margin of the breast excision. As a result additional revision of the anterior and inferior margin was then performed. These were marked for margins and sent as a permanent specimen, labeled anterior margin and inferior margin revision. Both the breast and axillary incisions were irrigated with saline solution and suctioned dry. The left breast excision site was then marked with hemoclips to assist with radiation therapy. Deep breast tissue was reapproximated using interrupted 3-0 Polysorb sutures. Superficial breast tissue was reapproximated using interrupted 3-0 Polysorb sutures. Dermis was reapproximated using interrupted 3-0 Polysorb sutures. Skin was then closed using a running subcuticular 4-0 Polysorb suture. Clavipectoral fascia was closed in the left axilla using interrupted 3-0 Polysorb sutures. Dermis was reapproximated using interrupted 3-0 Polysorb sutures. Skin was then closed using a running subcuticular 4-0 Polysorb suture. Sterile dressings consisting of Steri-Strips, 4 x 4 gauze and Tegaderm were applied to both incisions. The patient tolerated the procedure well. Sponge, instrument, and needle counts reported as correct. The patient was transferred to PACU in stable condition. Breast [place] Node Biopsy Substrate(s) used for sentinel node biopsy in the non-neoadjuvant setting: Radiotracer Substrate(s) used for sentinel node biopsy in the neoadjuvant setting: N/A All colored nodes or non-colored nodes present at the end of a dye filled lymphatic channel were removed, if dye was used as the substrate for localization: N/A All significantly radioactive nodes were removed, if radionuclide was used as the substrate for localization: Yes All palpably suspicious nodes were removed, if present: Yes If clips were placed in pathology-involved nodes, those nodes were identified and removed: Yes Procedure performed with curative intent?: Yes General Surg. - Synoptic Notes Breast [place]inking [place] Node Biopsy Substrate(s) used for sentinel node biopsy in the non-neoadjuvant setting: Radiotracer Substrate(s) used for sentinel node biopsy in the neoadjuvant setting: N/A All colored nodes or non-colored nodes present at the end of a dye filled lymphatic channel were removed, if dye was used as the substrate for localization: N/A All significantly radioactive nodes were removed, if radionuclide was used as the substrate for localization: Yes All palpably suspicious nodes were removed, if present: Yes If clips were placed in pathology-involved nodes, those nodes were identified a nd removed: Yes Procedure performed with curative intent?: Yes
[2024-10-05] MEDS: fentaNYL citrate/PF 100 MCG/2 ML VIAL 25 MCG IVPUSH ×2 (13:12→13:28)
== END 2024-10-05 14:58 | disposition home or self-care (01) ==
PROVIDERS: PCP Internal Medicine; Visit Provider Surgery
PROC: (CPT 19301; principal; 2024-10-05 10:20)
PROC: (CPT 19301; 2024-10-05 10:20)
DX: C50.512 Malignant neoplasm of lower-outer quadrant of left female breast (principal); C77.3 Secondary and unspecified malignant neoplasm of axilla and upper limb lymph nodes; Z17.0 Estrogen receptor positive status [ER+]; Z17.21 Progesterone receptor positive status; Z17.32 Human epidermal growth factor receptor 2 negative status; E83.110 Hereditary hemochromatosis; K74.60 Unspecified cirrhosis of liver; I47.19 Other supraventricular tachycardia; F33.9 Major depressive disorder, recurrent, unspecified; Z79.899 Other long term (current) drug therapy; L23.1 Allergic contact dermatitis due to adhesives; Z98.890 Other specified postprocedural states; Z87.891 Personal history of nicotine dependence
CPT/HCPCS: 19301; 38525; 38900; 78195; 88305; 88307; 88329; 88342; A9520; C1889; J0131; J0690; J1100; J2003; J2405; J2704; J3010; Q9968

== ENCOUNTER → 2024-10-05 06:22 | Outpatient (BNV) | payer MEDICARE, SELFPAY | PROVIDERS: PCP Internal Medicine; Visit Provider Surgery | DX: C50.412 Malignant neoplasm of upper-outer quadrant of left female breast (principal); C77.3 Secondary and unspecified malignant neoplasm of axilla and upper limb lymph nodes | CPT/HCPCS: 19301; 38525; 38900 ==

== ENCOUNTER → 2024-10-05 07:45 | Outpatient (BNV) | payer MEDICARE, SELFPAY | PROVIDERS: PCP Internal Medicine; Visit Provider Radiology Diagnostic Radiology | DX: C50.912 Malignant neoplasm of unspecified site of left female breast (principal) | CPT/HCPCS: 78195 ==

== ENCOUNTER 2024-10-15 10:13 | Outpatient (AMB) | payer MEDICARE, SELFPAY ==
--- NOTE | 2024-10-15 10:28 | MHC.OFFVIS ---
Vital Signs 10/15/24 10:33 Weight 216 lb BP 147/65 H Blood Pressure Location Rt brachial Position Sitting Pulse 79 Intake Visit Reasons: S/P Dr. Christopher Pt. Lt brst lump. w/seed & SN bx Intake Note: Patient here s/p Left breast lumpectomy with localizer, left axillary sentinel node biopsy. Reports bx site healed well. Patient c/o: bruising near bx site. Denies pain, oozing. 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 Christopher Pt. Lt brst lump. w/seed & SN bx: Details: She is here for postop visit. She underwent left colectomy in the left breast, with sentinel biopsy for invasive ductal cancer with Dr. Christopher last 10/05/2024. She tolerated procedure well. She currently says she has good pain control and denies significant complaints at home. [facility] Medical History Anxiety Breast cancer Port-A-Cath in place 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, major, recurrent Rotator cuff impingement syndrome of right shoulder Osteoarthritis History of PAT (paroxysmal atrial tachycardia) Hemochromatosis Surgical History Hx of total knee replacement Hx of hemorrhoidectomy Hx of cholecystectomy History of excision of lesion (08/16/14) History of partial hysterectomy (~2009) Hx of toe surgery (~1995) Hx of colonoscopy (10/07/18) Hx of arthroplasty (10/09/16) Family History Father HTN (hypertension) Lung cancer Mother Osteoporosis Sister Hemochromatosis Paternal Grandfather Skin cancer Bone cancer Maternal Grandmother Breast cancer Other Mental health disorder Social History Household Members: None Housing: Apartment Are you a primary manager intensive care to a significant other at home: No Do you presently have visiting nurse or other home services: No Alcohol intake: current Alcohol intake frequency: holidays/special occasions only Alcohol type: wine Patient Tobacco Use Status: Former Tobacco user Tobacco use type: Cigarette Cigarette Packs Per Day: 2 Years Smoked: 29 e-Cigarette/Vaping Use: Never Used Second Hand Smoke Exposure: No Advance Directives Date on File: 10/08/16 service: No Current occupational status: retired and disabled Current occupation: right handed Cognitive needs: No Hearing needs: No Vision needs: Yes Female Reproductive History Menstrual Age of Menarche: 16 Review of Systems Const Denies chills and Denies fever(s) Card Denies chest pain Resp Denies cough GI Denies abdominal pain Physical Exam Vital Signs: Last Vital Signs Pulse 79 10/15/24 10:33 BP 147/65 H 10/15/24 10:33 Const General: comfortable and no acute distress Chest Other: Lumpectomy site and sentinel node biopsy site on the left are both well healed, not infected, no discharge, no induration, no hematoma or significant ecchymosis Resp Effort & Inspection: normal respiratory effort Cardio Rate: regular rate GI Palpation (GI): Soft to palpation Assessment & Plan Assessment & Plan (1) Invasive ductal carcinoma of left breast: Code(s): C50.912 - Malignant neoplasm of unspecified site of left female breast Category: Medical Plan: Status post lumpectomy and sentinel biopsy with Dr. Christopher. She is doing very well postoperatively. All incisions are well healed. No evidence of any infection or any hematoma. She did not want me to remove her Steri-Strips for now Final path report invasive ductal carcinoma. The final margins are also negative and adequate. Her current stage is T1 N1. The tumor is ERPR positive, HER2 negative She says she has a follow up with her oncologist tomorrow. I have set her up for another follow up with Dr. Christopher in about a month. Coding Level of Care Code Global (36442) Diagnoses Invasive ductal carcinoma of left breast C50.912
[2024-10-15 10:33] VITALS: BP 147/65; PULSE 79
--- OUTSIDE RECORDS SUMMARY | 2024-10-15 10:40 | XMS_ITS | Clinical Summary ---
Author Organization [facility] Address [address] [place] [address] Phone Care Team Providers Care Adult Remedial Education Instructor Name Role Phone Kennedi Galvan MD Primary Care Provider [phone] Encounters Date Type Department Care Team Description 09/11/2024 12:40 PM EDT - 09/11/2024 11:59 PM EDT Hospital Encounter [facility] PET Scan [address] [place] [address] Malignant neoplasm of unspecified site [...] of unspecified site of left female breast ([facility] V24, [facility] V28) from Last 3 Months [...] Signed Date: 09/16/2024 15:43 ET Workstation ID: [id number] Transcribed By: Self Edit Transcribed Date: 09/16/2024 [...] Clifton Reviewed and Electronically Signed By: Nils lCifton Signed Date: 09/16/2024 15:43 ET Workstation ID: [id number] Transcribed By: Self Edit Transcribed Date: 09/16/2024 15:38 ET Deana Najera MD IMG NM PROCEDURES Final Result from Last 3 Months Insurance [employer] MED[employer]ARE ADVANTAGE Care Teams Adult Remedial Education Instructor Relationship Specialty Start Date End Date Kennedi Galvan MD PCP - General Internal Medicine 08/19/17
== END 2024-10-15 10:44 | disposition home or self-care (01) ==
LOC: HO.HGS 10:14
PROVIDERS: PCP Internal Medicine; Visit Provider Surgery
DX: C50.912 Malignant neoplasm of unspecified site of left female breast (principal)
CPT/HCPCS: 99024

== ENCOUNTER → 2024-10-15 10:13 | Outpatient (BNVA) | payer MEDICARE, SELFPAY | PROVIDERS: PCP Internal Medicine; Visit Provider Surgery | DX: C50.912 Malignant neoplasm of unspecified site of left female breast (principal); Z17.0 Estrogen receptor positive status [ER+] | CPT/HCPCS: 99212 ==

== ENCOUNTER 2024-11-16 13:28 | Outpatient (AMB) | payer MEDICARE, SELFPAY ==
--- NOTE | 2024-11-16 13:28 | MHC.OFFVIS ---
Intake Visit Reasons: discuss colonoscopy Intake Note: Est pt for eval of possible colonoscopy. Liver abn. CC; Discuss details of CT/[place] [facility] [place]. 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) She is getting phlebotomy q [facility] 06/2021: Hgb 14 g/dl, ferritin 25 she drinks wine few times a month she is taking Vit e supplement, no iron or vit C supplements she feels well no abdominal pain she has chronic knee pain appetite is good CT scan 2020-- possible mild cirrhosis INTERIM: she is doing better she is getting rx for breast ca she has no abdominal pain no n/v or other sx a/P: 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 2/ possible early cirrhosis --plts on lower side, may have portal HTN PLAN: 1/ Cont with phlebotomy after her breast ca rx 2/ colonosocpy with suprep after chemo radaition 3/ EGD for variceal screening 4/ US liver PFSH Medical History Anxiety Breast cancer Port-A-Cath in place 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, major, recurrent Rotator cuff impingement syndrome of right shoulder Osteoarthritis History of PAT (paroxysmal atrial tachycardia) Hemochromatosis Surgical History History of lumpectomy Hx of total knee replacement Hx of hemorrhoidectomy Hx of cholecystectomy History of excision of lesion (08/16/14) History of partial hysterectomy (~2009) Hx of toe surgery (~1995) Hx of colonoscopy (10/07/18) Hx of arthroplasty (10/09/16) Family History Father HTN (hypertension) Lung cancer Mother Osteoporosis Sister Hemochromatosis Paternal Grandfather Skin cancer Bone cancer Maternal Grandmother Breast cancer Other Mental health disorder Social History Household Members: None Housing: Apartment Are you a primary patient care director to a significant other at home: No Do you presently have visiting nurse or other home services: No Alcohol intake: current Alcohol intake frequency: holidays/special occasions only Alcohol type: wine Patient Tobacco Use Status: Former Tobacco user Tobacco use type: Cigarette Cigarette Packs Per Day: 2 Years Smoked: 29 e-Cigarette/Vaping Use: Never Used Second Hand Smoke Exposure: No Advance Directives Date on File: 10/08/16 service: No Current occupational status: retired and disabled Current occupation: right handed Cognitive needs: No Hearing needs: No Vision needs: Yes Female Reproductive History Menstrual Age of Menarche: 16 Telehealth Telehealth Telehealth Platform: Telephone Location of provider rendering services: practice address Patient Identification confirmed using: Name, : Yes Telehealth method: voice only Patient verbally consented to treatment: Yes Patient verbally consented to billing insurance company: Yes Patient informed of any privacy concerns related to visit: Yes Minutes spent on Phone/Video with Pt.: 6 Assessment & Plan Assessment & Plan (1) Hemochromatosis: Comment: hx therapeutic phlebotomies Q4 weeks Code(s): E83.119 - Hemochromatosis, unspecified Category: Medical Qualifiers: Hemochromatosis type: hereditary Qualified Code(s): E83.110 - Hereditary hemochromatosis Plan: as above Orders: Orders US abdomen vora w elastography Today E83.110 - Hereditary hemochromatosis Medications: New sodium,potassium,mag sulfates 17.5-3.13-1.6 gram (Suprep Bowel Prep Kit) DILUTE; drink 1/2 at 6-8 pm and half at 11 PM- 1AM 354 mL 0RF Coding Level of Care Code Tele Est Pt Level 3 (45584) Diagnoses Hereditary hemochromatosis E83.110 Hemochromatosis type: hereditary
--- OUTSIDE RECORDS SUMMARY | 2024-11-16 14:48 | XMS_ITS | Clinical Summary ---
Author Organization [facility] Address [address] [place] [address] Phone Care Team Providers Care Diversional Therapist'S Assistant Name Role Phone Kennedi Galvan MD Primary Care Provider [phone] Encounters Date Type Department Care Team Description 09/11/2024 12:40 PM EDT - 09/11/2024 11:59 PM EDT Hospital Encounter [facility] PET Scan [address] [place] [address] Malignant neoplasm of unspecified site [...] of unspecified site of left female breast ([facility] V24, [facility] V28) from Last 3 Months Results * [...] Signed Date: 09/16/2024 15:43 ET Workstation ID: [id number] Transcribed By: Self Edit Transcribed Date: 09/16/2024 [...] Signed Date: 09/16/2024 15:43 ET Workstation ID: [id number] Transcribed By: Self Edit Transcribed Date: 09/16/2024 15:38 ET Deana Najera MD IMG NM PROCEDURES Final Result from Last 3 Months Insurance [employer] MED[employer]ARE ADVANTAGE Care Teams Diversional Therapist'S Assistant Relationship Specialty Start Date End Date Kennedi Galvan MD PCP - General Internal Medicine 08/19/17
== END 2024-11-16 15:23 | disposition home or self-care (01) ==
LOC: HO.HGI 13:28
PROVIDERS: PCP Internal Medicine; Visit Provider Internal Medicine Gastroenterology
DX: E83.110 Hereditary hemochromatosis (principal)
CPT/HCPCS: 99213

== ENCOUNTER 2024-11-17 14:08 | Outpatient (AMB) | payer MEDICARE, SELFPAY ==
--- NOTE | 2024-11-17 14:12 | A.OFFVIS_ITS ---
Vital Signs 3 11/17/24 14:18 Height 5 ft 9 in Weight 218 lb BMI 32.2 BP 134/78 Blood Pressure Location Rt brachial Position Sitting Pulse 74 Intake Visit Reasons: 1 month follow up Lt brst lump. w/seed & SN bx Intake Note: Patient is seen in office for one month follow up visit, post left breast lumpectomy. Patient c/o: reports incision healing well. Denies pain, lumps, itch. 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 A diagnostic mammogram and ultrasound performed on 07/22/2024 revealed a solid irregular mass in the left breast at the 4 o'clock position. A slightly prominent left axillary lymph node was also noted and felt to be suspicious. She underwent ultrasound-guided core biopsy of both lesions on 08/13/2024. Pathology revealed invasive ductal carcinoma, grade 2 with metastatic carcinoma involving the left axillary lymph node, ER positive, MO positive, HER2 Johnathan negative by FISH. She underwent breast MRI on 08/24/2024. This confirmed the known left breast cancer with no new suspicious findings in either breast (BI-RADS 6 left breast, BI-RADS 1 right breast). She was evaluated by Dr. Najera who has requested a PET scan. The PET scan was completed on 09/11/2024 which revealed metabolically active left breast cancer but no other evidence of metastatic disease. The patient was offered either neoadjuvant or adjuvant chemotherapy. Patient was decided to proceed with surgery. She subsequently underwent a left breast lumpectomy with localizer and left axillary sentinel node biopsy. Pathology revealed invasive ductal carcinoma grade 2-3, 20 mm, with negative margins, DCIS is 2 mm from the inferior margin. Two of 4 excised lymph nodes with metastatic carcinoma. Oncotype DX breast recurrence score: 11. (pT1c N1a). The decision was made to avoid chemotherapy and she is now scheduled for a radiation oncology evaluation at [facility] this week. She feels well and denies any pain in the breast or axilla. She feels the wounds have healed nicely. [facility] Medical History Anxiety Breast cancer Port-A-Cath in place 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, major, recurrent Rotator cuff impingement syndrome of right shoulder Osteoarthritis History of PAT (paroxysmal atrial tachycardia) Hemochromatosis Surgical History History of lumpectomy Hx of total knee replacement Hx of hemorrhoidectomy Hx of cholecystectomy History of excision of lesion (08/16/14) History of partial hysterectomy (~2009) Hx of toe surgery (~1995) Hx of colonoscopy (10/07/18) Hx of arthroplasty (10/09/16) Family History Father HTN (hypertension) Lung cancer Mother Osteoporosis Sister Hemochromatosis Paternal Grandfather Skin cancer Bone cancer Maternal Grandmother Breast cancer Other Mental health disorder Social History Household Members: None Housing: Apartment Are you a primary critical care physician assistant to a significant other at home: No Do you presently have visiting nurse or other home services: No Alcohol intake: current Alcohol intake frequency: holidays/special occasions only Alcohol type: wine Patient Tobacco Use Status: Former Tobacco user Tobacco use type: Cigarette Cigarette Packs Per Day: 2 Years Smoked: 29 e-Cigarette/Vaping Use: Never Used Second Hand Smoke Exposure: No Advance Directives Date on File: 10/08/16 service: No Current occupational status: retired and disabled Current occupation: right handed Cognitive needs: No Hearing needs: No Vision needs: Yes Female Reproductive History Menstrual Age of Menarche: 16 Physical Exam Vital Signs: Last Vital Signs Pulse 74 11/17/24 14:18 BP 134/78 11/17/24 14:18 BMI result Body Mass Index 32.2 Const General: comfortable Nutritional Appearance: well nourished Orientation/consciousness: patient oriented x3 Chest Other: Left breast with a well-healed incision in the lower outer quadrant and axilla with no hematoma or seroma palpable. Chest/axillae images: 2 1. 2. GI Inspection: Yes normal to inspection Skin Other: Warm, dry, no rash Neuro General: patient oriented x3 Extrem Other: No upper extremity edema Assessment & Plan Assessment & Plan (1) Invasive ductal carcinoma of left breast: Code(s): C50.912 - Malignant neoplasm of unspecified site of left female breast Category: Medical Plan 69-year-old female patient returning 1 month following left breast lumpectomy and axillary sentinel node for invasive ductal carcinoma, ER/MO positive HER2 Johnathan negative with 2 of 4 axillary nodes positive for malignancy. She had a low Oncotype score therefore chemotherapy was avoided and she will now be awaiting radiation therapy. Wounds are healing nicely without evidence of infection, hematoma or seroma. She should follow up in 3 months for routine breast examination. She is welcome to call sooner for any new concerns. Coding Level of Care Code Global (17634) Diagnoses Invasive ductal carcinoma of left breast C50.912
[2024-11-17 14:18] VITALS: BP 134/78; PULSE 74; BMI 32.2
--- OUTSIDE RECORDS SUMMARY | 2024-11-17 17:15 | XMS_ITS | Clinical Summary ---
Author Organization [facility] Address [address] [place] [address] Phone Care Team Providers Care Associate Manager Affiliate Marketing Name Role Phone Kennedi Galvan MD Primary Care Provider [phone] Encounters Date Type Department Care Team Description 09/11/2024 12:40 PM EDT - 09/11/2024 11:59 PM EDT Hospital Encounter [facility] PET Scan [address] [place] [address] Malignant neoplasm of unspecified site [...] of unspecified site of left female breast ([facility] V24, [facility] V28) from Last 3 Months Results * [...] Signed Date: 09/16/2024 15:43 ET Workstation ID: [id number] Transcribed By: Self Edit Transcribed Date: 09/16/2024 [...] Signed Date: 09/16/2024 15:43 ET Workstation ID: [id number] Transcribed By: Self Edit Transcribed Date: 09/16/2024 15:38 ET Deana Najera MD IMG NM PROCEDURES Final Result from Last 3 Months Insurance [employer] MED[employer]ARE ADVANTAGE Care Teams Associate Manager Affiliate Marketing Relationship Specialty Start Date End Date Kennedi Galvan MD PCP - General Internal Medicine 08/19/17
== END 2024-11-17 14:28 | disposition home or self-care (01) ==
LOC: HO.HGS 14:09
PROVIDERS: PCP Internal Medicine; Visit Provider Surgery
DX: C50.912 Malignant neoplasm of unspecified site of left female breast (principal)
CPT/HCPCS: 99024

== ENCOUNTER → 2024-11-17 14:08 | Outpatient (BNVA) | payer MEDICARE, SELFPAY | PROVIDERS: PCP Internal Medicine; Visit Provider Surgery | DX: C50.412 Malignant neoplasm of upper-outer quadrant of left female breast (principal); Z98.890 Other specified postprocedural states | CPT/HCPCS: 99212 ==

== ENCOUNTER 2025-02-26 14:12 | Outpatient (AMB) | payer MEDICARE, SELFPAY ==
--- NOTE | 2025-02-26 14:14 | MHC.PC.OV ---
Vital Signs 02/26/25 14:16 Height 5 ft 9 in Weight 218 lb BMI 32.2 BP 114/80 Blood Pressure Location Rt brachial Position Sitting Respiration 16 Pulse 85 Pulse Source Pulse Oximeter Temp 98.5 F Temp Source Oral Pulse Oximetry (%) 97 Oxygen Delivery Method Room Air Intake Visit Reasons: follow up Furnace Utility Operator Required: No Allergies adhesive tape (ADHESIVE TAPE) Allergy (Intermediate, Verified 02/26/25 14:16) rednes from band-aids Tobacco use date assessed: 02/26/25 Fall risk assessment: No Falls in past year Last assessed Fall Risk: 02/26/25 Dental Screening Dental Screen Date: 02/26/25 Did you have a dental visit in the last 12 months?: No Did you have a dental problem in the last 6 months where you did not have access to dental care?: No Was dental information given to patient?: Patient declined HPI follow up HPI Details History The patient is a 69-year-old female presenting with f/u apt Breast Cancer: - Diagnosis of HER2-positive carcinoma of the left breast. - Recently completed radiation therapy approximately three to four weeks ago. - Lumbarectomy performed; - Currently taking Letrazole and ribociclib as part of ongoing oncology treatment. - Plans to see the oncology team next Saturday for follow-up. [facility] - Upcoming appointment with the surgeon who performed the lobectomy and a following procedure for port management. DM stable diet controlled Hemochromatosis induced cirrhosis managed by [facility]. Patient is on gabapentin 300 mg at night for pain management, patient has multiple joint osteoarthritis Bp is stable with medication Problem List - Breast Cancer - Essential Hypertension - Depression - Anxiety - hemochromatosis - multiple joint osteoarthritis pain management with gabapentin Medications: - Diltiazem 120 mg for blood pressure management. - Gabapentin 300 mg at bedtime for neuropathic pain. - Sertraline 150 mg for depression. - Tetrazole for breast cancer treatment. - Ibrance (palbociclib) from oncology for breast cancer management. Plan - Continue current breast cancer treatment - Attend upcoming oncology and surgical follow-ups as scheduled. - Encourage adherence to medication regimen for depression and hypertension. - contact pharm for refills Review of Systems. General: No fever no chills neurological: No headaches no dizziness ear nose throat: No sore throat no hearing difficulty no ear pain cardiovascular: No syncope, no chest pain, no palpitations gastrointestinal: No nausea vomiting or diarrhea endocrine: No polyuria polydipsia no heat intolerance genitourinary: No dysuria skin: No new complaints Physical Exam general: No acute distress HEENT: No acute findings neck: Supple respiratory system: Lungs are clear, able to talk in full sentences, no audible wheeze, no stridor cardiovascular: S1-S2 RRR gastrointestinal: No pain extremities: No new findings STATISTICAL REPORTING ANALYST: Alert awake oriented x3 motor sensory intact skin: Normal turgor PFS Medical History Anxiety Breast cancer Port-A-Cath in place 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, major, recurrent Rotator cuff impingement syndrome of right shoulder Osteoarthritis History of PAT (paroxysmal atrial tachycardia) Hemochromatosis Surgical History History of lumpectomy Hx of total knee replacement Hx of hemorrhoidectomy Hx of cholecystectomy History of excision of lesion (08/16/14) History of partial hysterectomy (~2009) Hx of toe surgery (~1995) Hx of colonoscopy (10/07/18) Hx of arthroplasty (10/09/16) Family History Father HTN (hypertension) Lung cancer Mother Osteoporosis Sister Hemochromatosis Paternal Grandfather Skin cancer Bone cancer Maternal Grandmother Breast cancer Other Mental health disorder Social History Household Members: None Housing: Apartment Are you a primary client care representative to a significant other at home: No Do you presently have visiting nurse or other home services: No Alcohol intake: current Alcohol intake frequency: holidays/special occasions only Alcohol type: wine Patient Tobacco Use Status: Former Tobacco user Tobacco use type: Cigarette Cigarette Packs Per Day: 2 Years Smoked: 29 e-Cigarette/Vaping Use: Never Used Second Hand Smoke Exposure: No Advance Directives Date on File: 10/08/16 service: No Current occupational status: retired and disabled Current occupation: right handed Cognitive needs: No Hearing needs: No Vision needs: Yes Female Reproductive History Menstrual Age of Menarche: 16 Questionnaire PHQ-9 Over the last 2 weeks, how often have you been bothered by any of the following problems? 1. Little interest or pleasure in doing things: not at all 2. Feeling down, depressed, or hopeless: not at all 3. Trouble falling or staying asleep, or sleeping too much: not at all 4. Feeling tired or having little energy: not at all 5. Poor appetite or overeating: not at all 6. Feeling bad about yourself - or that you are a failure or have let yourself or your family down: not at all 7. Trouble concentrating on things, such as reading the newspaper or watching television: not at all 8. Moving or speaking so slowly that other people could have noticed. Or the opposite - being so fidgety or restless that you have been moving around a lot more than usual: not at all 9. Thoughts that you would be better off or of hurting yourself in some way: not at all Total score: 0 Depression Screening Interpretation: Negative Depression Screening Done: Yes 71029 - PHQ-9 Billing: Yes Source: Developed by Drs. Aidan Benson, Claudia Unger, Fermín Mei and colleagues, with an educational nikhil from [employer]. Thrive Questionnaire Date Thrive assessed: 02/26/25 I am a: Patient What is your living situation today?: I have a steady place to live Within the past 12 months, did the food you bought not last and you didn't have the money to get more?: Never true Within the past 12 months, did you worry whether your food would run out before you got money to buy more?: Never true Do you have trouble paying for medicines?: No Do you have trouble getting transportation to medical appointments?: No Do you have trouble paying your heating and electricity bill?: No Do you have trouble taking care of your child, family member or friend?: No Do you have trouble with day-to-day activities such as bathing, preparing meals, shopping, managing finances, etc.?: No Are you currently unemployed and looking for a job?: No Are you interested in more education?: No Please select the resources that you would like help with: None Currently or been in a relationship where the following occur: No concerns reported THRIVE Score: 0 AUDIT C Alcohol Use Questionnaire (AUDIT-C) 1. How often do you have a drink containing alcohol?: 2-4 times a month Total Score: 2 BUZZ-7 AMB Questionnaire BUZZ-7 Date BUZZ - 7 assessed: 02/26/25 Feeling nervous, anxious, or on edge: 0 = Not at all Not being able to stop or control worryin = Not at all Worrying too much about different things: 0 = Not at all Trouble relaxin = Not at all Being so restless that it is hard to sit still: 0 = Not at all Becoming easily annoyed or irritable: 0 = Not at all Feeling afraid as if something awful might happen: 0 = Not at all Total BUZZ-7 score (0-4 normal; 5-9 mild; 10-14 moderate; 15-21 severe): 0 Source: Developed by Drs. Aiadn Benson, Claudia Unger, Fermín Mei and colleagues, with an educational nikhil from [employer]. BUZZ-7 Assessment Billing BUZZ-7 Assessment Tool: BUZZ-7 Assessment 66178 Physical exam (Primary Care) Vital Signs: Last Vital Signs Temp 98.5 F 02/26/25 14:16 Pulse 85 02/26/25 14:16 Resp 16 02/26/25 14:16 BP 114/80 02/26/25 14:16 Pulse Ox 97 02/26/25 14:16 Oxygen Delivery Method Room Air 02/26/25 14:16 BMI result Body Mass Index 32.2 Tobacco/Smoking Status: Tobacco use Status Tobacco use date assessed 02/26/25 02/26/25 14:22 Patient Tobacco Use Status Former Tobacco user 02/26/25 14:22 Tobacco use type Cigarette 02/26/25 14:22 e-Cigarette/Vaping Use Never Used 02/26/25 14:22 PHQ-9: PHQ-9 Score PHQ-9: Total score 0 02/26/25 16:07 Depression Screening Interpretation: Negative Thrive Assessment: Date of Thrive Assessment Date Thrive assessed 02/26/25 02/26/25 14:22 Currently or been in a relationship where the following occur: No concerns reported Coding Level of Care Code Est Pt Level 4 (65992) Complex EM visit Add On G2211 Diagnoses Invasive ductal carcinoma of left breast C50.912 Diabetes mellitus type 2 in obese E11.69; E66.9 Recurrent major depressive disorder, in partial remission F33.41 Active/Remission status: in partial remission Anxiety, generalized F41.1 Cirrhosis due to hemochromatosis E83.10 Hereditary hemochromatosis E83.110 Hemochromatosis type: hereditary Primary osteoarthritis involving multiple joints M15.9 Osteoarthritis location: multiple joints Osteoarthritis type: primary Pain management R52 Additional Codes BUZZ-7 Assessment Billing - BUZZ-7 Assessment Tool: BUZZ-7 Assessment 05955 ([id number]) PHQ-9 - 36447 - PHQ-9 Billing: Yes ([id number]) Assessment & Plan Assessment & Plan (1) Invasive ductal carcinoma of left breast: Code(s): C50.912 - Malignant neoplasm of unspecified site of left female breast Category: Medical (2) Diabetes mellitus type 2 in obese: Code(s): E11.69 - Type 2 diabetes mellitus with other specified complication; E66.9 - Obesity, unspecified Category: Medical (3) Depression, major, recurrent: Code(s): F33.9 - Major depressive disorder, recurrent, unspecified Category: Medical Qualifiers: Active/Remission status: in partial remission Qualified Code(s): F33.41 - Major depressive disorder, recurrent, in partial remission (4) Anxiety, generalized: Code(s): F41.1 - Generalized anxiety disorder Category: Medical (5) Cirrhosis due to hemochromatosis: Comment: Laboratory Tests WBC 5.0 RBC 4.34 Hgb 14.5 Hct 43.2 MCV 99.5 H MCH 33.4 H Plt Count 177 Estimated GFR Hemoglobin A1c % 5.6 GGT 217 H 12/20/20 Estimated GFR > 60 Hemoglobin A1c % Total Bilirubin 0.6 Direct Bilirubin 0.3 AST 40 H ALT 40 H Alkaline Phosphatase 72 ferritin was not obtained * CT ABD AND PELVIS 07/04/20? FINDINGS: LUNG BASES: There is a 2 mm right lower lobe nodule axial image 9 series 7. LIVER, GALLBLADDER, AND BILIARY TREE: The liver is enlarged, right lobe measuring 21 cm in length. The left lobe and caudate lobe appears prominent as well. The contour of the liver is slightly nodular suggestive of mild cirrhosis. No focal liver lesion is seen. The gallbladder has been removed. There is no biliary duct dilatation. PANCREAS: Unremarkable? SPLEEN: Unremarkable? ADRENAL GLANDS: Unremarkable? KIDNEYS AND URETERS: The kidneys are normal in size, shape, and attenuation. No hydronephrosis, hydroureter, or calculi seen. No perinephric stranding.? BLADDER: Not optimally distended. GASTROINTESTINAL TRACT: The small and large bowel are unremarkable. The appendix is not identified. ABDOMINAL WALL: There are umbilical and ventral hernias containing fat. LYMPH NODES: Normal VASCULAR: Unremarkable PELVIC VISCERA: The uterus appears to have been removed. No pelvic mass is seen. OSSEOUS STRUCTURES: There are degenerative changes of the spine and hip joints.? CT/CT abdomen pelvis wo/w con IMPRESSION: Slightly nodular contour of the liver suggestive of mild cirrhosis. No focal liver lesion is seen. Post cholecystectomy. No biliary duct dilatation. Small umbilical and ventral hernias containing fat. Code(s): E83.10 - Disorder of iron metabolism, unspecified Category: Medical (6) Hemochromatosis: Comment: hx therapeutic phlebotomies Q4 weeks Code(s): E83.119 - Hemochromatosis, unspecified Category: Medical Qualifiers: Hemochromatosis type: hereditary Qualified Code(s): E83.110 - Hereditary hemochromatosis (7) Osteoarthritis: Code(s): M19.90 - Unspecified osteoarthritis, unspecified site Category: Medical Qualifiers: Osteoarthritis location: multiple joints Osteoarthritis type: primary Qualified Code(s): M15.9 - Polyosteoarthritis, unspecified (8) Pain management: Code(s): R52 - Pain, unspecified Category: Medical Plan History The patient is a 69-year-old female presenting with f/u apt Breast Cancer: - Diagnosis of HER2-positive carcinoma of the left breast. - Recently completed radiation therapy approximately three to four weeks ago. - Lumbarectomy performed; - Currently taking Letrazole and ribociclib as part of ongoing oncology treatment. - Plans to see the oncology team next Saturday for follow-up. [facility] [place] Upcoming appointment with the surgeon who performed the lobectomy and a following procedure for port management. DM stable diet controlled Hemochromatosis induced cirrhosis managed by [facility]. Patient is on gabapentin 300 mg at night for pain management, patient has multiple joint osteoarthritis Bp is stable with medication Problem List - Breast Cancer - Essential Hypertension - Depression - Anxiety - hemochromatosis - multiple joint osteoarthritis pain management with gabapentin Medications: - Diltiazem 120 mg for blood pressure management. - Gabapentin 300 mg at bedtime for neuropathic pain. - Sertraline 150 mg for depression. - Tetrazole for breast cancer treatment. - Ibrance (palbociclib) from oncology for breast cancer management. Plan - Continue current breast cancer treatment - Attend upcoming oncology and surgical follow-ups as scheduled. - Encourage adherence to medication regimen for depression and hypertension. - contact pharm for refills f/u 4 M
[2025-02-26 14:16] VITALS: BP 114/80; PULSE 85; RESP 16; TEMP 36.9; O2SAT 97; BMI 32.2
--- OUTSIDE RECORDS SUMMARY | 2025-02-26 14:20 | XMS_ITS | Clinical Summary ---
Author Organization [facility] Address [address] [place] [address] Phone Care Team Providers Care Small Boat Engineer Name Role Phone Kathleen Ray MD Primary Care Provider [phone] Allergies Active Allergy Reactions Criticality Noted Date [...] Encounters Date Type Department Care Team Description 02/22/2025 Orders Only [facility] [place] [facility] Rad Onc [address] [place] [address] Claudia Whiting MD 02/15/2025 Orders Only [facility] [place] [facility] Rad Onc [address] [place] [address] Claudia Whiting MD 02/04/2025 Telephone [facility] [place] [facility] Rad Onc [address] [place] [phone] Alexia Hill RN 02/02/2025 Orders Only [facility] [place] [facility] Rad Onc [address] [place] [phone] Claudia Whiting MD 02/01/2025 2:40 PM EDT Office Visit [facility] [place] [facility] Rad Onc [address] [place] [address] Claudia Whiting MD Malignant neoplasm of lower-outer quadrant of left breast of female, estrogen receptor positive (Primary Dx) 02/01/2025 Orders Only [facility] [place] [facility] Rad Onc [address] [place] [phone] Claudia Whiting MD Malignant neoplasm of lower-outer quadrant of left breast of female, estrogen receptor positive (Primary Dx) 02/01/2025 Orders Only [facility] [place] [facility] Rad Onc [address] [place] [phone] Claudia Whiting MD Malignant neoplasm of lower-outer quadrant of left breast of female, estrogen receptor positive (Primary Dx) 01/28/2025 3:10 PM EDT Procedure visit [facility] [place] [facility] Rad Onc [address] [place] [phone] Claudia Whiting MD Malignant neoplasm of lower-outer quadrant of left breast of female, estrogen receptor positive (Primary Dx) 01/28/2025 Documentation [facility] [place] [facility] Rad Onc [address] [place] [phone] Claudia Whiting MD 01/27/2025 Documentation [facility] [place] [facility] Rad Onc [address] [place] [phone] Aura Alaniz MA Rad Onc discharge (Malignant neoplasm of lower-outer quadrant of left breast of female, estrogen receptor positive) 01/21/2025 3:10 PM EDT Procedure visit [facility] [place] [facility] Rad Onc [address] [place] [phone] Claudia Whiting MD Malignant neoplasm of lower-outer quadrant of left breast of female, estrogen receptor positive (Primary Dx) 01/12/2025 3:10 PM EDT Procedure visit [facility] [place] [facility] Rad Onc [address] [place] [phone] Mickey Mccormack MD, MSc Malignant neoplasm of lower-outer quadrant of left breast of female, estrogen receptor positive (Primary Dx) 01/05/2025 Documentation [facility] [place] [facility] Onc [address] [place] [phone] Mickey Mccormack MD, MSc 12/29/2024 2:50 PM EDT Office Visit [facility] [place] [facility] At [address] [address] Mickey Mccormack MD, MSc Malignant neoplasm of lower-outer quadrant of left breast of female, estrogen receptor positive (Primary Dx) 12/09/2024 9:30 AM EDT Office Visit [facility] [place] [facility] Onc [address] [place] [phone] Mickey Mccormack MD, MSc Malignant neoplasm of lower-outer quadrant of left breast of female, estrogen receptor positive (Primary Dx) 12/09/2024 Documentation [facility] [place] [facility] At [address] [address] Marie Donaldson RN 12/09/2024 Telephone [facility] [place] [facility] At [address] [address] Mickey Mccormack MD, MSc [facility] Months Family History Medical [...] Description 07/28/2025 11:00 AM EST Office Visit [facility] [place] [facility] Rad Onc [address] [place] [phone] Claudia Whiting MD [address] [place] [address] [email or web address] Health Maintenance Due Date Last Done Comments [...] INITIAL (ONE-TIME) 2022 INFLUENZA VACCINE (#1) 2024 , 01/14/2019, 02/24/2018, Additional history exists COVID-19 VACCINE ( - 2024- season) 2025 08/01/2020 RSV VACCINE [...] topic Medical Devices Not on file Insurance [facility] MEDICARE REPLACEMENT [facility] MEDICARE REPLACEMENT [facility] MEDICARE [facility]PLACEMENT [facility] MEDIC[facility] REPLACEMENT [facility] MEDICARE REPLACEMENT [employer] P[employer] MEDICARE REPLACEMENT Care Teams Small Boat Engineer Relationship Specialty Start Date End Date Kathleen Ray MD [address] [place] [address] PCP - General Internal Medicine 11/05/24 Additional Source Comments The information contained in this document represents components of the legal health record. It is not the complete legal health record.[facility]
--- OUTSIDE RECORDS SUMMARY | 2025-02-26 14:20 | XMS_ITS | Encounter Summary ---
Author Organization [facility] Address [address] [place] [address] Phone Care Team Providers Care Securities Settlement Processor Name Role Phone Kathleen Ray MD Primary Care Provider [phone] Encounter Details Date Type Department Care Team (Late st Contact Info) Description 02/22/2025 Orders Only [facility] [place] [facility] Rad Onc [address] [place] [address] Claudia Whiting MD [address] [place] [phone] [email or web address] Social History Tobacco Use Types Packs/Day Years [...] Description 07/28/2025 11:00 AM EST Office Visit [facility] [place] [facility] Rad Onc [address] [place] [address] Claudia Whiting MD [address] [place] [address] [email or web address] documented as of this encounter Visit Diagnoses Not on filedocumented in this encounter Care Teams Securities Settlement Processor Relationship Specialty Start Date End Date Kathleen Ray MD [address] [facility] [place] [address] PCP - General Internal Medicine 11/05/24 documented as of this encounter Additional Source Comments The information contained in this document represents components of the legal health record. It is not the complete legal health record.[facility]
--- OUTSIDE RECORDS SUMMARY | 2025-02-26 14:20 | XMS_ITS | Encounter Summary ---
Author Organization [facility] Address [address] [place] [address] Phone Care Team Providers Care Laboratory Apparatus Glass Blower Name Role Phone Kathleen Ray MD Primary Care Provider [phone] Encounter Details Date Type Department Care Team (Late st Contact Info) Description 12/09/2024 Documentation [facility] [place] [facility] Rad Onc [address] [place] [address] Marie Donaldson RN [address] [place] [address] [email or web address] Social History Tobacco Use Types Packs/Day Years [...] Description 07/28/2025 11:00 AM EST Office Visit [facility] [place] [facility] Rad Onc [address] [place] [address] Claudia Whiting MD [address] [place] [address] [email or web address] documented as of this encounter Visit Diagnoses Not on filedocumented in this encounter Care Teams Laboratory Apparatus Glass Blower Relationship Specialty Start Date End Date Kathleen Ray MD [facility] [place] [address] PCP - General Internal Medicine 11/05/24 documented as of this encounter Additional Source Comments The information contained in this document represents components of the legal health record. It is not the complete legal health record.[facility]
--- OUTSIDE RECORDS SUMMARY | 2025-02-26 14:20 | XMS_ITS | Clinical Summary ---
Author Organization [facility] Address [address] [place] [phone] Phone Care Team Providers Care Industrial Maintenance Millwright Name Role Phone Kennedi Galvan MD Primary Care Provider [phone] Social History Tobacco Use Types Packs/Day Years Used Date Smoking Tobacco: Never Assessed Comments Unknown Sex and Gender Information Value Date Recorded Sex Assigned at Not on file Legal Sex Female 11:20 PM EST Gender Identity Not on file Sexual Orientation Not on file Plan of Treatment Health Maintenance Due Date Last Done Comments Breast Cancer Screening 1955 Colorectal Cancer Screening: Colonoscopy 1955 Depression Screening 05/27/2024 Falls Risk Assessment 09/10/2024 Hepatitis C Screening [...] topic Insurance [employer] MED[employer]ARE [employer] Care Teams Industrial Maintenance Millwright Relationship Specialty Start Date End Date Kennedi Galvan MD PCP - General Internal Medicine 08/19/17
--- OUTSIDE RECORDS SUMMARY | 2025-02-26 14:20 | XMS_ITS | Encounter Summary ---
Author Organization [facility] Address [address] [facility] [address] [place] [address] Phone Care Team Providers Care Ladle Mechanic Name Role Phone Kathleen Ray MD Primary Care Provider [phone] Encounter Details Date Type Department Care Team (Late st Contact Info) Description 02/02/2025 Orders Only [facility] [place] [facility] Rad Onc [address] [place] [address] Claudia Whiting MD [address] [place] [id number] [email or web address] Social History Tobacco Use Types Packs/Day Years [...] Description 07/28/2025 11:00 AM EST Office Visit [facility] [place] [facility] Rad Onc [address] [place] [address] Claudia Whiting MD [address] [place] [address] [email or web address] documented as of this encounter Visit Diagnoses Not on filedocumented in this encounter Care Teams Ladle Mechanic Relationship Specialty Start Date End Date Kathleen Ray MD [address] [place] [address] PCP - General Internal Medicine 11/05/24 documented as of this encounter Additional Source Comments The information contained in this document represents components of the legal health record. It is not the complete legal health record.[facility]
== END 2025-02-26 14:42 | disposition home or self-care (01) ==
LOC: HO.HMCC 14:13
PROVIDERS: PCP Internal Medicine; Visit Provider Internal Medicine
DX: E11.69 Type 2 diabetes mellitus with other specified complication (principal); C50.912 Malignant neoplasm of unspecified site of left female breast; E66.9 Obesity, unspecified; Z68.32 Body mass index [BMI] 32.0-32.9, adult; F33.41 Major depressive disorder, recurrent, in partial remission; F41.1 Generalized anxiety disorder; E83.10 Disorder of iron metabolism, unspecified; E83.110 Hereditary hemochromatosis; M15.9 Polyosteoarthritis, unspecified; R52 Pain, unspecified

== ENCOUNTER → 2025-02-26 14:12 | Outpatient (BNVA) | payer MEDICARE, SELFPAY | PROVIDERS: PCP Internal Medicine; Visit Provider Internal Medicine | DX: E83.110 Hereditary hemochromatosis (principal); E11.69 Type 2 diabetes mellitus with other specified complication; E66.9 Obesity, unspecified; F33.41 Major depressive disorder, recurrent, in partial remission; F41.1 Generalized anxiety disorder; E83.10 Disorder of iron metabolism, unspecified; M15.9 Polyosteoarthritis, unspecified; R52 Pain, unspecified | CPT/HCPCS: 96127; 99212 ==

== ENCOUNTER 2025-03-15 14:31 | Outpatient (AMB) | payer MEDICARE, SELFPAY ==
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
[2025-03-15 14:59] VITALS: BP 125/68; PULSE 80; BMI 31.7
--- OUTSIDE RECORDS SUMMARY | 2025-03-15 18:18 | XMS_ITS | Clinical Summary ---
Author Organization [facility] Address [address] [place] [address] Phone Care Team Providers Care Auditor Internal Name Role Phone Kathleen Ray MD Primary Care Provider [phone] Allergies Active Allergy Reactions Criticality Noted Date [...] daily. Active silver sulfADIAZINE (SILVADENE) 1 % creamIndications: Malignant neoplasm of lower-outer quadrant of left breast of female, estrogen receptor positive Apply topically 2 (two) times a day. 400 g Active Active Problems Problem Noted Date Diagnosed Date Malignant neoplasm of lower- outer quadrant of left breast of female, estrogen receptor positive 11/24/2024 Encounters Date Type Department Care Team Description 02/22/2025 Orders Only [facility] Rad Onc [address] [place] [address] Claudia Whiting MD 02/15/2025 Orders Only [facility] At [facility] Rad Onc [address] [place] [address] Claudia Whiting MD 02/04/2025 Telephone [facility] At [facility] Rad Onc [address] [place] [address] Alexia Hill RN 02/02/2025 Orders Only [facility] At [facility] Rad Onc [address] [place] [address] Claudia Whiting MD 02/01/2025 2:40 PM EDT Office Visit [facility] At [facility] Rad Onc [address] [place] [address] Claudia Whiting MD Malignant neoplasm of lower-outer quadrant of left breast of female, estrogen receptor positive (Primary Dx) 02/01/2025 Orders Only [facility] At [facility] Rad Onc [address] [place] [address] Claudia Whiting MD Malignant neoplasm of lower-outer quadrant of left breast of female, estrogen receptor positive (Primary Dx) 02/01/2025 Orders Only [facility] At [facility] Rad Onc [address] [place] [address] Claudia Whiting MD Malignant neoplasm of lower-outer quadrant of left breast of female, estrogen receptor positive (Primary Dx) 01/28/2025 3:10 PM EDT Procedure visit [facility] At [facility] Rad Onc [address] [place] [address] Claudia Whiting MD Malignant neoplasm of lower-outer quadrant of left breast of female, estrogen receptor positive (Primary Dx) 01/28/2025 Documentation [facility] At [facility] Rad Onc [address] [place] [address] Claudia Whiting MD 01/27/2025 Documentation [facility] At [facility] Rad Onc [address] [place] [address] Aura Alaniz MA Rad Onc discharge (Malignant neoplasm of lower-outer quadrant of left breast of female, estrogen receptor positive) 01/21/2025 3:10 PM EDT Procedure visit [facility] At [facility] Rad Onc [address] [place] [address] Claudia Whiting MD Malignant neoplasm of lower-outer quadrant of left breast of female, estrogen receptor positive (Primary Dx) 01/12/2025 3:10 PM EDT Procedure visit [facility] At [facility] Rad Onc [address] [place] [address] Mickey Mccormack MD, MSc Malignant neoplasm of lower-outer quadrant of left breast of female, estrogen receptor positive (Primary Dx) 01/05/2025 Documentation [facility] At [facility] Rad Onc [address] [place] [address] Mickey Mccormack MD, MSc 12/29/2024 2:50 PM EDT Office Visit [facility] At [facility] Rad Onc [address] [place] [address] Mickey Mccormack MD, MSc Malignant neoplasm of [...] Description 07/28/2025 11:00 AM EST Office Visit [facility] At [facility] Rad Onc [address] [place] [address] Claudia Whiting MD [address] [place] [address] [email or web address] Health Maintenance Due Date Last Done Comments [...] Additional history exists COVID-19 VACCINE (2 - season) 2025 08/01/2020 RSV VACCINE (1 - [...] topic Medical Devices Not on file Insurance [facility] MEDICARE REPLACEMENT [facility] MEDICARE REPLACEMENT Care Teams Auditor Internal Relationship Specialty Start Date End Date Kathleen Ray MD [address] [place] [address] PCP - General Internal Medicine 11/05/24 Additional Source Comments The information contained in this document represents components of the legal health record. It is not the complete legal health record.[facility]
--- OUTSIDE RECORDS SUMMARY | 2025-03-15 18:18 | XMS_ITS | Encounter Summary ---
Author Organization [facility] Address [address] [place] [address] Phone Care Team Providers Care Substance Abuse Clinician Name Role Phone Kathleen Ray MD Primary Care Provider [phone] Encounter Details Date Type Department Care Team (Late st Contact Info) Description 12/09/2024 Documentation [facility] At [facility] Rad Onc [address] [place] [address] Marie Donaldson RN [address] [place] [address] [email or web address] Social History Tobacco Use Types Packs/Day Years [...] Description 07/28/2025 11:00 AM EST Office Visit [facility] At [facility] Rad Onc [address] [place] [address] Claudia Whiting MD [address] [place] [address] [email or web address] documented as of this encounter Visit Diagnoses Not on filedocumented in this encounter Care Teams Substance Abuse Clinician Relationship Specialty Start Date End Date Kathleen Ray MD [facility] [place] [place] [address] PCP - General Internal Medicine 11/05/24 documented as of this encounter Additional Source Comments The information contained in this document represents components of the legal health record. It is not the complete legal health record.[facility]
== END 2025-03-15 15:02 | disposition home or self-care (01) ==
LOC: HO.HGS 14:31
PROVIDERS: PCP Internal Medicine; Visit Provider Surgery
DX: C50.912 Malignant neoplasm of unspecified site of left female breast (principal)
CPT/HCPCS: 99213; G2211

== ENCOUNTER → 2025-03-15 14:31 | Outpatient (BNVA) | payer MEDICARE, SELFPAY | PROVIDERS: PCP Internal Medicine; Visit Provider Surgery | DX: C50.512 Malignant neoplasm of lower-outer quadrant of left female breast (principal); C77.3 Secondary and unspecified malignant neoplasm of axilla and upper limb lymph nodes; Z17.0 Estrogen receptor positive status [ER+]; Z17.21 Progesterone receptor positive status; Z17.32 Human epidermal growth factor receptor 2 negative status; Z79.811 Long term (current) use of aromatase inhibitors | CPT/HCPCS: 99212 ==

== ENCOUNTER 2025-03-16 11:25 | Day surgery (SDC) | payer MEDICARE, SELFPAY ==
--- OUTSIDE RECORDS SUMMARY | 2025-02-01 14:40 | XMS_ITS | Encounter Summary ---
Author Organization [facility] Address [address] [place] [address] Phone Care Team Providers Care Absorption Plant Operator Helper Name Role Phone Kathleen Ray MD Primary Care Provider [phone] Encounter Details Date Type Department Care Team (Late st Contact Info) Description 02/01/2025 2:40 PM EDT Office Visit [facility] At [facility] Rad Onc [address] [place] [address] [id number] Claudia Whiting MD [address] [place] [address] [email or web address] Malignant neoplasm of lower-outer quadrant of left breast of female, estrogen receptor positive (Primary Dx) Social History Tobacco Use Types Packs/Day Years Used Date Smoking Tobacco: Former Cigarettes Smokeless Tobacco: Never Alcohol Use Standard Drinks/Week Comments Yes 2 (1 standard drink = 0.6 oz pur e alcohol) Education Answer Date Recorded Are you interested in more education? Not on de e 09/21/2022 Are you concerned about learning? Not on file 09/21/2022 No 09/21/2022 No 09/21/2022 Digital Access Answer Date Recorded No 10/20/2022 No 10/20/2022 Reliable internet access at home? Not on file 10/20/2022 Device with a working camera? Not on file Comments Unknown Sex and Gender Information Value Date Recorded Sex Assigned at Not on file Legal Sex Female 10:38 AM EDT Gender Identity Not on file Sexual Orientation Not on file documented as of this encounter Progress Notes * Claudia Whiting MD - 02/01/2025 2:40 PM EDT FOLLOW UP NOTE: Date: 02/01/2025 Name: Isabel Ramey Diagnosis: This is a 69 y.o. female who is now referred for consultation of radiation therapy for a newly diagnosed left breast IDC s/p lumpectomy and SLNB on 10/05/2024. Path: unifocal IDC, Grade 2-3, 20 mm, DCIS with intermediated nuclear grade, solid type, negative margins for malignancy, no LVSI, 2 involved lymph nodes with macrometastases, [id number], anatomical Stage IIB, Prognostic stage IIA. Area Treated L Breast BST Delivered Dose / Rx Dose 1000 cGy / 1000 cGy Dose Per Fraction 200 cGy Delivered Fractions / Prescribed Fractions 5 / 5 Modality 6MV & 15MV @ Isodose Technique AP/LPO Start Date 01/21/2025 End Date 01/28/2025 Elapsed Days 8 Area Treated L SCLV+AX Delivered Dose / Rx Dose 4256 cGy / 4256 cGy Dose Per Fraction 266 cGy Delivered Fractions / Prescribed Fractions 16 / 16 Modality 15MV @ Isodose Technique CHILDRESS/LPO Start Date 12/30/2024 End Date 01/20/2025 Elapsed Days 22 Area Treated L Breast Delivered Dose / Rx Dose 4256 cGy / 4256 cGy Dose Per Fraction 266 cGy Delivered Fractions / Prescribed Fractions 16 / 16 Modality 6,10,&15MV @ Isodose Technique Opposed Tangential Start Date 12/30/2024 End Date 01/20/2025 Elapsed Days 22 Date treatment completed: January 28, 2025 Progress Report: She had some moist desquamation in the inframammary region of her left breast. Shecalled us today to report that this was becoming very uncomfortable. Physical Exam: In the inframammary region she had moist desquamation in the surface area measuring about 4 x 2-1/2 cm. There was no sign of infection. She also had significant erythema and inflammation of her entire left breast. Response to Radiation: I did give her Silvadene cream to apply on the inframammary region. She has also used hydrocortisone on the breast if necessary. She is to contact us further changes occur. I do not believe systemic steroids are indicated although it is a possibility if the redness continues to become quite significant. Plan: Follow-up with us next Saturday. Sooner if necessary. Claudia Whiting MD [facility] Department of Radiation Oncology at [facility] documented in this encounter Plan of Treatment Upcoming Encounters Date Type Department Care Team (Late st Contact Info) Description 07/28/2025 11:00 AM EST Office Visit [facility] Cancer Center At [facility] Rad Onc [address] [place] [address] Claudia Whiting MD [address] [place] [phone] [email or web address] documented as of this encounter Visit Diagnoses Diagnosis Malignant neoplasm of lower-outer quadrant of left breast of female, estrogen receptor positive- Primary documented in this encounter Care Teams Absorption Plant Operator Helper Relationship Specialty Start Date End Date Kathleen Ray MD [address] [place] [address] PCP - General Internal Medicine 11/05/24 documented as of this encounter Additional Source Comments The information contained in this document represents components of the legal health record. It is not the complete legal health record.[facility]
--- OUTSIDE RECORDS SUMMARY | 2025-02-05 15:44 | XMS_ITS | Encounter Summary ---
Author Organization [facility] Address [address] [place] [address] Phone Care Team Providers Care Associate Dean Of Women Name Role Phone Kathleen Ray MD Primary Care Provider [phone] Encounter Details Date Type Department Care Team (Late st Contact Info) Description 12/09/2024 Documentation [facility] Cancer Center At [facility] Rad Onc [address] [place] [address] Marie Donaldson RN [address] [place] [address] [email or web address] Social History Tobacco Use Types Packs/Day Years [...] as of this encounter Plan of Treatment Upcoming Encounters Date Type Department Care Team (Late st Contact Info) Description 07/28/2025 11:00 AM EST Office Visit [facility] Cancer Center At [facility] Rad Onc [address] [place] [address] Claudia Whiting MD [address] [place] [address] [email or web address] documented as of this encounter Visit Diagnoses Not on filedocumented in this encounter Care Teams Associate Dean Of Women Relationship Specialty Start Date End Date Kathleen Ray MD [facility] [place] [address] PCP - General Internal Medicine 11/05/24 documented as of this encounter Additional Source Comments The information contained in this document represents components of the legal health record. It is not the complete legal health record.[facility]
--- OUTSIDE RECORDS SUMMARY | 2025-02-05 15:44 | XMS_ITS | Encounter Summary ---
Author Organization [facility] Address [address] [place] [address] Phone Care Team Providers Care Cross Roller Name Role Phone Kathleen Ray MD Primary Care Provider [phone] Encounter Details Date Type Department Care Team (Late st Contact Info) Description 02/02/2025 Orders Only [facility] At [facility] Rad Onc [address] [place] [address] Claudia Whiting MD [address] [place] [phone] [email or web address] Social History Tobacco Use Types Packs/Day Years [...] Description 07/28/2025 11:00 AM EST Office Visit [facility] At [facility] Rad Onc [address] [place] [address] Claudia Whiting MD [address] [place] [address] [email or web address] documented as of this encounter Visit Diagnoses Not on filedocumented in this encounter Care Teams Cross Roller Relationship Specialty Start Date End Date Kathleen Ray MD [address] [place] [address] PCP - General Internal Medicine 11/05/24 documented as of this encounter Additional Source Comments The information contained in this document represents components of the legal health record. It is not the complete legal health record.[facility]
--- OUTSIDE RECORDS SUMMARY | 2025-02-05 15:44 | XMS_ITS | Encounter Summary ---
Author Organization [facility] Address [address] [place] [address] Phone Care Team Providers Care Cook Pressure Name Role Phone Kathleen Ray MD Primary Care Provider [phone] Encounter Details Date Type Department Care Team (Late Contact Info) Description 02/01/2025 Orders Only [facility] Cancer Center At [facility] Rad Onc [address] [place] [address] [phone] Clauida Whiting MD [address] [place] [phone] [email or web address] Malignant neoplasm of lower-outer quadrant of left [...] Upcoming Encounters Date Type Department Care Team ([facility] Contact Info) Description 07/28/2025 11:00 AM EST Office Visit [facility] At [facility] Rad Onc [address] [place] [address] Claudia Whiting MD [address] [place] [address] [email or web address] documented as of this encounter Visit Diagnoses Diagnosis Malignant neoplasm of lower-outer quadrant of left breast of female, estrogen receptor positive- Primary documented in this encounter Care Teams Cook Pressure Relationship Specialty Start Date End Date Kathleen Ray MD [address] [place] [address] PCP - General Internal Medicine 11/05/24 documented as of this encounter Additional Source Comments The information contained in this document represents components of the legal health record. It is not the complete legal health record.[facility]
--- OUTSIDE RECORDS SUMMARY | 2025-02-05 15:45 | XMS_ITS | Encounter Summary ---
Author Organization [facility] Address [address] [place] [phone] Phone Care Team Providers Care Accounting Teacher Name Role Phone Kathleen Ray MD Primary Care Provider Encounter Details Date Type Department Care Team (Late st Contact Info) Description 02/04/2025 Telephone [facility] Rad Onc [address] [place], [place] [phone] Alexia Hill RN [address] [place] [address] [email or web address] Social History Tobacco Use Types Packs/Day Years [...] as of this encounter Progress Notes * Alexia Hill, RN - 02/04/2025 9:34 AM EDT Status call made to check in on Isabel's moist desquamation and comfort. Left message to please [email or web address]. documented in this encounter Plan of Treatment Upcoming Encounters Date Type Department Care Team (Late st Contact Info) Description 07/28/2025 11:00 AM EST Office Visit [facility] Rad Onc [address] [place] [phone] Claudia Whiting MD [address] [place] [address] [email or web address] documented as of this encounter Visit Diagnoses Not on filedocumented in this encounter Care Teams Accounting Teacher Relationship Specialty Start Date End Date Kathleen Ray MD [address] [place] [address] PCP - General Internal Medicine 11/05/24 documented as of this encounter Additional Source Comments The information contained in this document represents components of the legal health record. It is not the complete legal health record.[facility]
--- OUTSIDE RECORDS SUMMARY | 2025-02-05 15:45 | XMS_ITS | Clinical Summary ---
Author Organization [facility] Address [address] [place] [phone] Phone Care Team Providers Care Metal Stud Framer Name Role Phone Kathleen Ray MD Primary Care Provider [phone] Allergies Active Allergy Reactions Criticality Noted Date Comments Adhesive Rash Low 11/18/2024 Medications sertraline (ZOLOFT) 100 MG tablet Take 150 mg by mouth daily. Active dilTIAZem (CARDIZEM CD) 120 MG 24 hr capsule Take 120 mg by mouth daily. Active gabapentin (NEURONTIN) 300 MG capsule Take 300 mg by mouth nightly at bedtime. Active letrozole (FEMARA) 2.5 mg tablet Take 2.5 mg by mouth daily. Active silver sulfADIAZINE (SILVADENE) 1 % creamIndications :Malignant neoplasm of lower-outer quadrant of left breast of female, estrogen receptor positive Apply topically 2 (two) times a day. 400 g 02/02/20 25 Active silver sulfADIAZINE (SILVADENE) 1 % creamIndications :Malignant neoplasm of lower-outer quadrant of left breast of female, estrogen receptor positive Apply topically 2 (two) times a day. 400 g 02/02/20 25 025 Discontinued Active Problems Problem Noted Date Diagnosed Date Malignant neoplasm of lower- outer quadrant of left breast of female, estrogen receptor positive 11/24/2024 Encounters Date Type Department Care Team Description 02/04/2025 Telephone [facility] Rad Onc [address] [place] [address] Alexia Hill RN 02/02/2025 Orders Only [facility] Rad Onc [address] [place] [address] Claudia Whiting MD 02/01/2025 2:40 PM EDT Office Visit [facility] Rad Onc [address] [place] [address] Claudia Whiting MD Malignant neoplasm of lower-outer quadrant of left breast of female, estrogen receptor positive (Primary Dx) 02/01/2025 Orders Only [facility] At [facility] Rad Onc [address] [place] [phone] Claudia Whiting MD Malignant neoplasm of lower-outer quadrant of left breast of female, estrogen receptor positive (Primary Dx) 02/01/2025 Orders Only [facility] At [facility] Rad Onc [address] [place] [address] Claudia Whiting MD Malignant neoplasm of lower-outer quadrant of left breast of female, estrogen receptor positive (Primary Dx) 01/28/2025 3:10 PM EDT Procedure visit [facility] At [facility] Rad Onc [address] [place] [phone] Claudia Whiting MD Malignant neoplasm of lower-outer quadrant of left breast of female, estrogen receptor positive (Primary Dx) 01/28/2025 Documentation [facility] Rad Onc [address] [place] [phone] Claudia Whiting MD 01/27/2025 Documentation [facility] Rad Onc [address] [place] [phone] Aura Alaniz MA Rad Onc discharge (Malignant neoplasm of lower-outer quadrant of left breast of female, estrogen receptor positive) 01/21/2025 3:10 PM EDT Procedure visit [facility] At [facility] Rad Onc [address] [place] [phone] Claudia Whiting MD Malignant neoplasm of lower-outer quadrant of left breast of female, estrogen receptor positive (Primary Dx) 01/12/2025 3:10 PM EDT Procedure visit [facility] At [facility] Rad Onc [address] [place] [phone] Mickey Mccormack MD, MSc Malignant neoplasm of lower-outer quadrant of left breast of female, estrogen receptor positive (Primary Dx) 01/05/2025 Documentation [facility] At [facility] Rad Onc [address] [place] [phone] Mickey Mccormack MD, MSc 12/29/2024 2:50 PM EDT Office Visit [facility] Rad Onc [address] [place] [phone] Mickey Mccormack MD, MSc Malignant neoplasm of lower-outer quadrant of left breast of female, estrogen receptor positive (Primary Dx) 12/09/2024 9:30 AM EDT Office Visit [facility] Rad Onc [address] [place] [phone] Mickey Mccormack MD, MSc Malignant neoplasm of lower-outer quadrant of left breast of female, estrogen receptor positive (Primary Dx) 12/09/2024 Documentation [facility] At [facility] Onc [address] [place] [phone] Marie Donaldson RN 12/09/2024 Telephone [facility] Rad Onc [address] [place] [phone] Mickey Mccormack MD, MSc [facility] 11/18/2024 10:00 AM EDT Office Visit [facility] Rad Onc [address] [place] [phone] Mickey Mccormack MD, MSc Malignant neoplasm of lower-outer quadrant of left breast of female, estrogen receptor positive (Primary Dx) from Last 3 Months Family History Medical History Relation Comments Cancer Father Cancer Paternal Grandmother Relation Status Comments Father Paternal Grandmother Social History Tobacco Use Types Packs/Day Years [...] on file Sexual Orientation Not on file Last Filed Vital Signs Vital Sign Reading Time Taken Comments Blood Pressure 122/81 11/18/2024 10:19 AM EDT Pulse 78 11/18/2024 10:19 AM EDT Temperature 36.6 C (97.9 F) 11/18/2024 10:19 AM EDT Respiratory Rate - - Oxygen Saturation 95% 11/18/2024 10:19 AM EDT Inhaled Oxygen Concentration - - Weight 96.6 kg (213 lb) 11/18/2024 10:19 AM EDT Height 175.3 cm (5' 9 ) 11/18/2024 10:19 AM EDT Body Mass Index 31.45 11/18/2024 10:19 AM EDT Plan of Treatment Upcoming Encounters Date Type Department Care Team (Late st Contact Info) Description 07/28/2025 11:00 AM EST Office Visit [facility] Rad Onc [address] [place] [phone] Claudia Whiting MD [address] [place] [address] [email or web address] Health Maintenance Due Date Last Done Comments Adult Td,Tdap Booster 1957 LIPID PANEL 1957 DEPRESSION SCREENING 1969 SMOKING Hx and SMOKELESS TOBACCO SCREENING 1970 HEPATITIS C SCREENING 10/19/1975 PNEUMOCOCCAL VACCINES (50+ years) (1 of 2 - PCV) 1976 SCREENING FOR DIABETES 1992 MAMMOGRAM 1997 COLOGUARD 2002 COLONOSCOPY 2002 COLORECTAL CANCER SCREENING 2002 FIT TEST 2002 FOBT 2002 SIGMOIDOSCOPY 2002 VIRTUAL COLONOSCOPY 2002 OSTEOPOROSIS SCREENING INITIAL (ONE-TIME) 2022 INFLUENZA VACCINE (#1) 2024 0, 01/14/2019, 02/24/2018, Additional history exists COVID-19 VACCINE (2 - 2024- season) 2025 08/01/2020 RSV VACCINE (1 - 1-dose 75+ series) 2032 ZOSTER VACCINES Completed 01/12/2018, 08/14/2017 HEPATITIS A VACCINES Aged Out No long er eligible based on patient's age to complete this topic HIB VACCINES Aged Out No longer eligi ble based on patient's age to complete this topic MENINGOCOCCAL VACCINES (ACWY) Aged Out No longer eligible based on patient's age to complete this topic MENINGOCOCCAL VACCINES (B) Aged Out N o longer eligible based on patient's age to complete this topic Medical Devices Not on file Insurance [facility] MEDICARE REPLACEMENT [facility] MEDIC[facility] REPLACEMENT [address] [facility] MEDICARE REPLACEMENT [facility] MEDICARE REPLACEMENT [employer] PPO MEDICARE REPLACEMENT Care Teams Metal Stud Framer Relationship Specialty Start Date End Date Kathleen Ray MD [address] [place] [address] PCP - General Internal Medicine 11/05/24 Additional Source Comments The information contained in this document represents components of the legal health record. It is not the complete legal health record.[facility]
--- OUTSIDE RECORDS SUMMARY | 2025-02-05 15:45 | XMS_ITS | Encounter Summary ---
Author Organization [facility] Address [address] [place] [phone] Phone Care Team Providers Care Java Lead Engineer Name Role Phone Kathleen Ray MD Primary Care Provider [phone] Encounter Details Date Type Department Care Team (Late Contact Info) Description 02/01/2025 Orders Only [facility] Rad Onc [address] [place] [phone] Claudia Whiting MD [address] [place] [phone] [email or web address] Malignant neoplasm of lower-outer quadrant of left [...] Upcoming Encounters Date Type Department Care Team ([facility] Contact Info) Description 07/28/2025 11:00 AM EST Office Visit [facility] Rad Onc [address] [place] [address] Claudia Whiting MD [address] [place] [address] [email or web address] documented as of this encounter Visit Diagnoses Diagnosis Malignant neoplasm of lower-outer quadrant of left breast of female, estrogen receptor positive- Primary documented in this encounter Care Teams Java Lead Engineer Relationship Specialty Start Date End Date Kathleen Ray MD [address] [place] [address] PCP - General Internal Medicine 11/05/24 documented as of this encounter Additional Source Comments The information contained in this document represents components of the legal health record. It is not the complete legal health record.[facility]
--- OUTSIDE RECORDS SUMMARY | 2025-02-05 15:45 | XMS_ITS | Clinical Summary ---
Author Organization [facility] Address [address] [place] [phone] Phone Care Team Providers Care Fighter Pilot Name Role Phone Kennedi Galvan MD Primary Care Provider Social History Tobacco Use Types Packs/Day Years Used Date Smoking Tobacco: Never Assessed Comments Unknown Sex and Gender Information Value Date Recorded Sex Assigned at Not on file Legal Sex Female 11:20 PM EST Gender Identity Not on file Sexual Orientation Not on file Plan of Treatment Health Maintenance Due Date Last Done Comments Breast Cancer Screening 1955 Depression Screening 05/27/2024 Colorectal Cancer Screening: Colonoscopy 09/10/2024 Falls Risk Assessment 09/10/2024 Hepatitis C Screening 09/10/2024 Medicare Annual Wellness Visit 09/10/2024 Osteoporosis Screening (Bone Density Screening) 09/10/2024 Social Influencers of Health Screening 09/10/2024 COVID-19 Vaccine ( season) 2025 02/07/2024, 03/21/2023, 03/17/2022, Additional history exists Influenza Vaccine (#1) 2025 , 03/21/2023, 03/17/2022, Additional history exists DTaP,Tdap,and Td Vaccines (2 - Td or Tdap) 07/20/2034 07/20/2024 Zoster Vaccines Completed 01/12/2018, 08/14/2017 Pneumococcal Vaccine: 50+ Years Completed 11/08/2021 RSV Immunization Adult Patients Completed 04/11/2023 HIB Vaccines Aged Out No longer eligi [...] topic Insurance [employer] MEDICARE ADVANTAGE Care Teams Fighter Pilot Relationship Specialty Start Date End Date Kennedi Galvan MD PCP - General Internal Medicine 08/19/17
--- NOTE | ~2025-03-16 | IR_ITS ---
History: Patient no longer requires port for chemotherapy Procedures performe: Port removal from the the right chest Physician: Janis Lopez MD FSIR Anesthesia: 15 mL of 1% lidocaine was injected subcutaneously at the port site for local anesthesia. Specimen: None Drain: None Estimated blood loss: Minimal Complications: None Procedure in detail: Informed and written consent was obtained. The patient was positioned supine on the angiography table with sterile preparation of the right neck and chest. 1% lidocaine was injected subcutaneously at the port location in the right upper chest. A small incision was made in the skin with a #10 blade. Blunt dissection was performed to identify the port. The port was freed from the subcutaneous tissues and removed as a unit with the catheter. It was inspected on the back table and determined to be intact. The pocket was irrigated with antibiotic solution. It was then closed with interrupted 2-0 Vicryl and a subcuticular running 4-0 Monocryl suture. Overlying Dermabond and a sterile dressing was applied. Summary: Successful removal of a port from the right chest. Electronically signed by: Lauri Lopez MD 03/16/2025 02:40 PM EDT
[2025-03-16 11:51] VITALS: BMI 32.9
[2025-03-16 12:10] LABS: INTERNATIONAL NORM RATIO 1.1 (0.9-1.1); Prothrombin Time 12.7 SEC (10.9-12.4)
[2025-03-16 12:12] VITALS: BP 131/78; PULSE 74; RESP 16; TEMP 36.7; O2SAT 97
[2025-03-16 12:15] LABS: Hematocrit 39.7 % (37.0-47.0); Hemoglobin 13.7 g/dl (12.0-16.0); Imm Gran Abs Auto 0.00 X10*3/uL (0.00-0.03); Imm Gran Pct Auto 0.0 % (0.0-0.4); Lymphocytes Absolute Auto 0.6 X10*3/uL (1.2-4.9); MANUAL DIFF FLAG SCAN; Mean Corpuscular HGB Conc 34.5 g/dl (31.0-35.0); Mean Corpuscular Hemoglobin 34.5 pg (27.0-33.0); Mean Corpuscular Volume 100.0 fL (80.0-98.0); NRBC Abs Auto 0.000 X10*3/uL (0.0-0.012); NRBC Pct Auto 0.0 /100WBC (0.0-0.2); Platelet Count 119 X10*3/uL (160-400); Red Blood Count 3.97 X10*6/uL (4.20-5.50); SCAN SMEAR FLAG 1
[2025-03-16 12:18] LABS: White Blood Count 1.8 X10*3/uL (4.8-10.8)
[2025-03-16 12:20] LABS: Anion Gap 13 (12-20); Blood Urea Nitrogen 10 mg/dL (9-16); Calcium 9.7 mg/dL (8.4-10.2); Carbon Dioxide 27 mmol/L (22-29); Chloride 108 mmol/L (96-108); Creatinine Clr Calc Pharmacy 104.5; Estimated Glomerular Filt Rate > 60; Potassium 4.5 mmol/L (3.3-5.1); Sodium 143 mmol/L (135-145)
[2025-03-16 13:40] VITALS: BP 139/80; PULSE 67; RESP 20; O2SAT 98
[2025-03-16 13:50] VITALS: BP 151/71; PULSE 72; RESP 20; O2SAT 98
[2025-03-16 14:00] VITALS: BP 146/82; PULSE 69; RESP 20; O2SAT 98
[2025-03-16 14:20] VITALS: BP 127/63; PULSE 68; RESP 16; TEMP 36.6; O2SAT 98
--- NOTE | 2025-03-16 14:47 | PC.NURSE ---
1425-pt got up to get dressed and pulled off skin glue accidentally, thinking it was an EKG lead. DSD placed over site and Dr Lopez notified and he came to bedside; plan is he will apply chg swabstick and new skin glue.
== END 2025-03-16 15:00 | disposition home or self-care (01) ==
PROVIDERS: Radiology Diagnostic Radiology; Radiology Vascular & Interventional Radiology; PCP Internal Medicine; Visit Provider Internal Medicine Medical Oncology
PROC: (CPT 36590; principal; 2025-03-16 13:00)
DX: Z45.2 Encounter for adjustment and management of vascular access device (principal); C50.912 Malignant neoplasm of unspecified site of left female breast; Z17.0 Estrogen receptor positive status [ER+]; Z17.21 Progesterone receptor positive status; Z17.32 Human epidermal growth factor receptor 2 negative status; Z92.3 Personal history of irradiation; E83.119 Hemochromatosis, unspecified; K74.69 Other cirrhosis of liver; F33.9 Major depressive disorder, recurrent, unspecified; Z79.899 Other long term (current) drug therapy; L23.1 Allergic contact dermatitis due to adhesives; Z87.891 Personal history of nicotine dependence
CPT/HCPCS: 36415; 36590; 80048; 85025; 85610; J0690; J2003; J3010

== ENCOUNTER → 2025-03-16 13:04 | Outpatient (BNV) | payer MEDICARE, SELFPAY | PROVIDERS: PCP Internal Medicine; Visit Provider Radiology Vascular & Interventional Radiology | DX: Z45.2 Encounter for adjustment and management of vascular access device (principal) | CPT/HCPCS: 36590 ==

== ENCOUNTER 2025-03-30 09:22 | Outpatient (REF) | payer MEDICARE, SELFPAY ==
--- NOTE | ~2025-03-30 | US_ITS ---
EXAMINATION: US ABDOMEN LIMITED WITH LIVER ELASTOGRAPHY CLINICAL INFORMATION: Hereditary hemachromatosis. COMPARISON: US abdomen with elastography 11/05/2016. Correlation made with abdomen US 06/19/2019. Correlation made with CT abdomen pelvis 07/04/2020. TECHNIQUE: Real-time imaging of the abdominal viscera. Noninvasive ultrasound liver fibrosis assessment is performed using Siemens point quantification shear wave elastography (pSWE) with a C5-2 MHz transducer. Multiple elastography samples are obtained. FINDINGS: PANCREAS: Normal. The visualized pancreatic head and body are normal in appearance. The remainder of the pancreas is obscured from visualization by the overlying bowel gas. LIVER: Normal. The liver demonstrates mildly increased size, mild nodularity of the surface contour, and diffusely increased parenchymal echogenicity. No focal lesion or intrahepatic biliary duct dilatation. The right lobe measures 19.6 cm in length. The left lobe measures 14.9 cm in length. Portal flow is towards the liver (hepatopetal). Shear wave liver elastography median stiffness is 1.16 meters per second (reference: normal median stiffness is 1.3 m/s or less). (Previously this measured 1.25 m/s). IQR/median stiffness to assess sampling precision is 0.22 (reference: good quality data set is IQR/median stiffness of 0.30 or less). This indicates a quality data set. GALLBLADDER: Surgically absent. COMMON BILE DUCT: Normal in caliber measuring 0.4 cm in diameter. RIGHT KIDNEY: Normal. No hydronephrosis. No renal calculi or focal parenchymal lesions. The kidney measures 12.7 cm in maximum dimension. FREE FLUID: None. US/US abdomen vora w elastography IMPRESSION: 1. Mild hepatomegaly with diffusely increased hepatic echogenicity. No suspicious hepatic lesion. No biliary dilatation. 2. Liver elastography: Median stiffness = 1.16 m/s. Measurements are consistent with a high probability of normal liver stiffness. Liver stiffness measurement is without significant change from prior exam (change under 10%). 3. Cholecystectomy. REFERENCE: Society of [employer] in Ultrasound Liver Stiffness Thresholds (2019): LIVER STIFFNESS THRESHOLDS: *Liver Stiffness equal or less than 1.3 m/s: High probability of being normal. *Liver Stiffness less than 1.7 m/s: In the absence of other known clinical signs, rules out compensated advanced chronic liver disease. *Liver Stiffness 1.7-2.1 m/s: Suggestive of compensated advanced chronic liver disease but need further test for confirmation. *Liver Stiffness over 2.1 m/s: Rules in compensated advanced chronic liver disease. *Liver Stiffness over 2.4 m/s: Suggestive of clinically significant portal hypertension. QUALITY OF DATA SET: *IQR/Median value equal or less than 0.30 implies a quality data set. *IQR/Median value over 0.30 implies a poor quality data set. SIGNIFICANT CHANGE FROM PRIOR EXAM: Significant change if liver stiffness measurement is 10% or greater from prior exam. OTHER CONSIDERATIONS: The stage of liver fibrosis may be overestimated in the setting of acute hepatitis, liver inflammation, elevated liver function tests, hepatic vascular congestion, obstructive cholestasis, non-fasting state, and infiltrative diseases such as amyloidosis and lymphoma. In some patients with NAFLD, the liver stiffness thresholds for compensated advanced chronic liver disease may be lower. In causes other than viral hepatitis and NAFLD, liver stiffness thresholds are not well established. Electronically signed by: Yordan Cates MD 03/30/2025 10:22 AM [facility]
--- OUTSIDE RECORDS SUMMARY | 2025-03-30 10:16 | XMS_ITS | Clinical Summary ---
Author Organization [facility] Address [address] [place] [phone] Phone Care Team Providers Care Station Repairer Name Role Phone Kennedi Galvan MD Primary Care Provider [phone] Social History Tobacco Use Types Packs/Day Years [...] topic Insurance [employer] Care Teams Station Repairer Relationship Specialty Start Date End Date Kennedi Galvan MD PCP - General Internal Medicine 08/19/17
--- OUTSIDE RECORDS SUMMARY | 2025-03-30 10:16 | XMS_ITS | Clinical Summary ---
Author Organization [facility] Address [address] [place] [address] Phone Care Team Providers Care Centerless Grinding Machine Adjuster Name Role Phone Kathleen Ray MD Primary Care Provider [phone] Allergies Active Allergy Reactions Criticality Noted Date [...] Department Care Team Description 02/22/2025 Orders Only [facility] Rad Onc [address] [place] [address] Claudia Whiting MD 02/15/2025 Orders Only [facility] Rad Onc [address] [place] [address] Claudia Whiting MD 02/04/2025 Telephone [facility] Rad Onc [address] [place] [address] Alexia Hill RN 02/02/2025 Orders Only [facility] Rad Onc [address] [place] [address] Claudia Whiting MD 02/01/2025 2:40 PM EDT Office Visit [facility] Rad Onc [address] [place] [address] Claudia Whiting MD Malignant neoplasm of lower-outer quadrant of left breast of female, estrogen receptor positive (Primary Dx) 02/01/2025 Orders Only [facility] Rad Onc [address] [place] [address] Claudia Whiting MD Malignant neoplasm of lower-outer quadrant of left breast of female, estrogen receptor positive (Primary Dx) 02/01/2025 Orders Only [facility] Rad Onc [address] [place] [address] Claudia Whiting MD Malignant neoplasm of lower-outer quadrant of left breast of female, estrogen receptor positive (Primary Dx) 01/28/2025 3:10 PM EDT Procedure visit [facility] Rad Onc [address] [place] [address] Claudia Whiting MD Malignant neoplasm of lower-outer quadrant of left breast of female, estrogen receptor positive (Primary Dx) 01/28/2025 Documentation [facility] Rad Onc [address] [place] [address] Claudia Whiting MD 01/27/2025 Documentation [facility] Rad Onc [address] [place] [address] Aura Alaniz MA Rad Onc discharge (Malignant neoplasm of lower-outer quadrant of left breast of female, estrogen receptor positive) 01/21/2025 3:10 PM EDT Procedure visit [facility] Rad Onc [address] [place] [address] Claudia Whiting MD Malignant neoplasm of lower-outer quadrant of left breast of female, estrogen receptor positive (Primary Dx) 01/12/2025 3:10 PM EDT Procedure visit [facility] Rad Onc [address] [place] [address] Mickey Mccormack MD, MSc Malignant neoplasm of lower-outer quadrant of left breast of female, estrogen receptor positive (Primary Dx) 01/05/2025 Documentation [facility] Rad Onc [address] [place] [address] Mickey Mccormack MD, MSc 12/29/2024 2:50 PM EDT Office Visit [facility] Rad Onc [address] [place] [address] Mickey Mccormack MD, MSc Malignant neoplasm of [...] Description 07/28/2025 11:00 AM EST Office Visit [facility] Rad Onc [address] [place] [address] Claudia Whiting MD [address] [place] [address] [email or web address] Health Maintenance Due Date Last Done Comments [...] topic Medical Devices Not on file Insurance [facility] MEDICARE REPLACEMENT [facility] MEDICARE REPLACEMENT Care Teams Centerless Grinding Machine Adjuster Relationship Specialty Start Date End Date Kathleen Ray MD [address] [place] [address] PCP - General Internal Medicine 11/05/24 Additional Source Comments The information contained in this document represents components of the legal health record. It is not the complete legal health record.[facility]
--- OUTSIDE RECORDS SUMMARY | 2025-03-30 10:16 | XMS_ITS | Encounter Summary ---
Author Organization [facility] Address [address] [place] [address] Phone Care Team Providers Care Shipwright Helper Name Role Phone Kathleen Ray MD Primary Care Provider [phone] Encounter Details Date Type Department Care Team (Late st Contact Info) Description 12/09/2024 Documentation [facility] At [facility] Rad Onc [address] [place] [address] Marie Donaldson RN [address] [place] [address] [email or web address] Social History Tobacco Use Types Packs/Day Years [...] Description 07/28/2025 11:00 AM EST Office Visit [facility] At [facility] Rad Onc [address] [place] [address] Claudia Whiting MD [address] [place] [address] [email or web address] documented as of this encounter Visit Diagnoses Not on filedocumented in this encounter Care Teams Shipwright Helper Relationship Specialty Start Date End Date Kathleen Ray MD [facility] [place] [address] PCP - General Internal Medicine 11/05/24 documented as of this encounter Additional Source Comments The information contained in this document represents components of the legal health record. It is not the complete legal health record.[facility]
== END 2025-03-30 09:23 | disposition home or self-care (01) ==
LOC: HO.US 09:22
PROVIDERS: PCP Internal Medicine; Visit Provider Internal Medicine Gastroenterology
DX: E83.110 Hereditary hemochromatosis (principal)
CPT/HCPCS: 76705; 76981

== ENCOUNTER → 2025-03-30 09:24 | Outpatient (BNV) | payer MEDICARE, SELFPAY | PROVIDERS: PCP Internal Medicine; Visit Provider Radiology Diagnostic Radiology | DX: R16.0 Hepatomegaly, not elsewhere classified (principal); K91.5 Postcholecystectomy syndrome | CPT/HCPCS: 76705 ==